=== PATIENT | female | born 1970 | race African-American/Black ===

== ENCOUNTER 2019-06-10 16:29 | Emergency (ER) | payer OTHER ==
--- OUTSIDE RECORDS SUMMARY | 2019-06-10 16:32 | XMS REPORT ---
:1970 [facility] Address [address] [place] [id number] Care Team Providers Name Role Phone Unavailable Unavailable Unavailable Problems This patient has no known problems. Allergies, Adverse Reactions, Alerts This patient has no known allergies or adverse reactions. Medications This patient has no known medications.
[2019-06-10 17:55] LABS: Absolute Lymphocytes (CBC) 2.4 K/uL (0.7-4.9); Basophils % 0.7 % (0-1.3); Hematocrit 36.5 % (36.0-45.0); Lymphocytes % 27.9 % (15.3-44.8)
[2019-06-10 18:00] LABS: Protime INR 1.05
--- NOTE | 2019-06-10 18:14 | RAD REPORT ---
EXAM DESCRIPTION: RAD - Chest Single View - 06/10/2019 5:24 pm CLINICAL HISTORY: Hypertension, shortness of breath COMPARISON: August 2008 TECHNIQUE: AP portable chest image was obtained 1719 hours . FINDINGS: Lungs are clear. Heart and vasculature are normal. No measurable pleural effusion and no p neumothorax. No acute bony abnormality seen. No acute aortic findings suspected. IMPRESSION: No acute cardiopulmonary process. No suspicious interval change.
[2019-06-10 18:25] LABS: ALT/SGPT 18 U/L (12-78); AST/SGOT 12 U/L (15-37); Alkaline Phosphatase 63 U/L (45-117); BUN Blood Urea Nitrogen 14 mg/dL (7-18); Bicarbonate 28 mmol/L (21-32); Bilirubin Direct 0.1 mg/dL (0-0.2); Bilirubin Total 0.4 mg/dL (0.2-1.0); Glucose Level 369 mg/dL (74-106); Magnesium 1.7 mg/dL (1.8-2.4); NT PRO-BNP 328 pg/mL (<125); Protein, Total 6.4 g/dL (6.4-8.2); Sodium Level 137 mmol/L (136-145); Troponin (Emerg Dept Use Only) < 0.02 ng/mL (0.0-0.045)
--- NOTE | 2019-06-10 18:32 | ER ---
Nurse's Notes [facility] Name: Mariaa Peguero Age: 48 yrs Sex: Female : 1970 Arrival Date: 06/10/2019 Time: 16:36 Bed 14 Private MD: Diagnosis: Dehydration;Hyperglycemia, unspecified Presentation: 06/10 16:46 Presenting complaint: Blurred vision x 1 week, sent from Dr. Elizabeth's office for HTN. hb Transition of care: patient was not received from another setting of care. Onset of symptoms was June 10, 2019. Risk Assessment: Do you want to hurt yourself or someone else? Patient reports no desire to harm self or others. Initial Sepsis Screen: Does the patient meet any 2 criteria? No. Patient's initial sepsis screen is negative. Does the patient have a suspected source of infection? No. Patient's initial sepsis screen is negative. Care prior to arrival: None. 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 - Social history:: Smoking status: Patient/guardian denies using tobacco. - Ebola Screening: : No symptoms or risks identified at this time. Screenin:59 Abuse screen: Denies threats or abuse. Denies injuries from another. Nutritional ph screening: No deficits noted. Tuberculosis screening: No symptoms or risk factors identified. Fall Risk None identified. Assessment: 17:30 General: Appears in no apparent distress. comfortable, well groomed, Behavior is calm, ph cooperative, appropriate for age. Pain: Denies pain. Neuro: Level of Consciousness is awake, alert, obeys commands, Oriented to person, place, time, situation, Reports blurred vision Denies dizziness, headache. Cardiovascular: Denies chest pain, lightheadedness, shortness of breath, Capillary refill < 3 seconds in bilateral fingers Patient's skin is warm and dry. Respiratory: Airway is patent Respiratory effort is even, unlabored, Respiratory pattern is regular, symmetrical. Derm: Skin is intact, is healthy with good turgor, Skin is pink, warm \\T\\ dry. Musculoskeletal: Circulation, motion, and sensation intact. Range of motion: intact in all extremities. 18:43 Reassessment: Patient appears in no apparent distress at this time. Patient and/or ph family updated on plan of care and expected duration. Pain level reassessed. Patient is alert, oriented x 3, equal unlabored respirations, skin warm/dry/pink. Pt requesting to be d/c, ERP notified and at bedside to speak w/ pt about elevated BGL, pt continue to state that she wants to leave, states, " I knew it was going to be high, I'm just ready to go.". Vital Signs: 16:48 BP 167 / 95; Pulse 78; Resp 16; Temp 98.5; Pulse Ox 96% on R/A; Weight 102.06 kg; hb Height 5 ft. 3 in. (160.02 cm); Pain 0/10; 17:45 BP 147 / 85; Pulse 81; Resp 18; Pulse Ox 96% on R/A; ph 18:40 BP 135 / 90; Pulse 78; Resp 18; Temp 97.9; Pulse Ox 100% on R/A; ph 16:48 Body Mass Index 39.86 (102.06 kg, 160.02 cm) hb ED Course: 16:36 Patient arrived in ED. mr 16:48 Triage completed. hb 16:48 Arm band placed on left wrist. hb 16:51 [facility]ie Oliva [facility]-C [facility]. snw 16:51 Dani Lira MD is Attending Physician. snw 16:51 Yenni Waldrop, EYAL is Primary Nurse. ph 17:22 EKG done, by endoscope technician. reviewed by Allie VARGAS. sm3 17:26 XRAY Chest (1 view) In Process Unspecified. EDMS 17:35 Inserted saline lock: 20 gauge in right antecubital area, using aseptic technique. ph Blood collected. IV discontinued, intact, bleeding controlled, No redness/swelling at site. Pressure dressing applied, Pt requested that IV be d/c after blood draw. 17:56 Patient has correct armband on for positive identification. Placed in gown. Bed in low ph position. Call light in reach. Pulse ox on. NIBP on. Door closed. Noise minimized. Lights dimmed. Warm blanket given. Head of bed elevated. 18:44 No provider procedures requiring assistance completed. ph Administered Medications: 18:33 Not Given (Patient Refused): NS 0.9% 1000 ml IV at 1 bolus Per protocol; 1000 mL bolus ph 18:41 Drug: Ativan 1 mg Route: PO; ph 18:42 Follow up: Response: No adverse reaction; Medication administered at discharge. ph Outcome: 18:31 Discharge ordered by MD. beavers 18:45 Patient left the ED. ph 18:45 Discharged to home ambulatory, with significant other. ph 18:45 Condition: stable 18:45 Discharge instructions given to patient, Instructed on discharge instructions, follow up and referral plans. Demonstrated understanding of instructions, follow-up care. Signatures: Dispatcher [employer] EDMS Allie Oliva, ARNOLDOC BLADE GRINDER-Csnw Michelle Glass Patricia, RN RN Shayla Swartz RN RN Marilou Crowe [facility]
--- NOTE | 2019-06-10 18:33 | EDPHYS ---
Physician Documentation [facility] Name: Mariaa Peguero Age: 48 yrs Sex: Female : 1970 Arrival Date: 06/10/2019 Time: 16:36 Bed 14 Private MD: ED Physician Dani Lira HPI: 06/10 17:51 This 48 yrs old Black Female presents to ER via Ambulatory with complaints of High snw Blood Pressure. 17:51 The patient has elevated blood pressure and discovered this as noted. Onset: The snw symptoms/episode began/occurred gradually. Associated signs and symptoms: Pertinent positives: fatigue, malaise, hyperglycemia. Severity of symptoms: At its worst the blood pressure was moderate. It is unknown whether or not the patient has had similar symptoms in the past. 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 Dong. 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 - Social history:: Smoking status: Patient/guardian denies using tobacco. - Ebola Screening: : No symptoms or risks identified at this time. ROS: 17:47 Constitutional: Negative for fever, chills, and weight loss, Eyes: Negative for injury, snw pain, redness, and discharge, + blurry vision x 1 week, Went to Dr. Faustin's today and had eyes dilated. Dr. Faustin sent pt to ED 2nd to HTN in office. Pt is supposed to take anti-HTN meds BID, has not been taking a.m. dose x several days, unsure why per pt. Her own meds were taken at 's and blood pressure is better. Pt states her FSBS has been high lately ENT: Negative for injury, pain, and discharge, Neck: Negative for injury, pain, and swelling, Cardiovascular: Negative for chest pain, palpitations, and edema, Respiratory: Negative for shortness of breath, cough, wheezing, and pleuritic chest pain, Abdomen/GI: Negative for abdominal pain, nausea, vomiting, diarrhea, and constipation, Back: Negative for injury and pain, : Negative for injury, bleeding, discharge, and swelling, MS/Extremity: Negative for injury and deformity, Skin: Negative for injury, rash, and discoloration, Neuro: Negative for headache, weakness, numbness, tingling, and seizure, Psych: Negative for depression, anxiety, suicide ideation, homicidal ideation, and hallucinations. Exam: 17:45 Constitutional: This is a well developed, well nourished patient who is awake, alert, snw and in no acute distress. Head/Face: Normocephalic, atraumatic. Eyes: Pupils equal round and reactive to light, extra-ocular motions intact. Lids and lashes normal. Conjunctiva and sclera are non-icteric and not injected. Cornea within normal limits. Periorbital areas with no swelling, redness, or edema. ENT: Nares patent. No nasal discharge, no septal abnormalities noted. Tympanic membranes are normal and external auditory canals are clear. Oropharynx with no redness, swelling, or masses, exudates, or evidence of obstruction, uvula midline. Mucous membranes moist. Neck: Trachea midline, no thyromegaly or masses palpated, and no cervical lymphadenopathy. Supple, full range of motion without nuchal rigidity, or vertebral point tenderness. No Meningismus. Chest/axilla: Normal chest wall appearance and motion. Nontender with no deformity. No lesions are appreciated. Cardiovascular: Normal rate and rhythm with a normal S1 and S2. No gallops, murmurs, or rubs. Normal PMI, no JVD. No pulse deficits. Respiratory: Lungs have equal breath sounds bilaterally, clear to auscultation and percussion. No rales, rhonchi or wheezes noted. No increased work of breathing, no retractions or nasal flaring. Abdomen/GI: Soft, non-tender, with normal bowel sounds. No distension or tympany. No guarding or rebound. No evidence of tenderness throughout. Back: No spinal tenderness. No costovertebral tenderness. Full range of motion. Skin: Warm, dry with normal turgor. Normal color with no rashes, no lesions, and no evidence of cellulitis. Appears mildly dry MS/ Extremity: Pulses equal, no cyanosis. Neurovascular intact. Full, normal range of motion. Neuro: Awake and alert, GCS 15, oriented to person, place, time, and situation. Cranial nerves II-XII grossly intact. Motor strength 5/5 in all extremities. Sensory grossly intact. Cerebellar exam normal. Normal gait. Psych: Awake, alert, with orientation to person, place and time. Behavior, mood, and affect are within normal limits. Vital Signs: 16:48 BP 167 / 95; Pulse 78; Resp 16; Temp 98.5; Pulse Ox 96% on R/A; Weight 102.06 kg; hb Height 5 ft. 3 in. (160.02 cm); Pain 0/10; 17:45 BP 147 / 85; Pulse 81; Resp 18; Pulse Ox 96% on R/A; ph 18:40 BP 135 / 90; Pulse 78; Resp 18; Temp 97.9; Pulse Ox 100% on R/A; ph 16:48 Body Mass Index 39.86 (102.06 kg, 160.02 cm) hb MDM: 16:51 Patient medically screened. snw 18:33 Data reviewed: vital signs, nurses notes. Data interpreted: Pulse oximetry: on room air snw is 96 %. Interpretation: normal. Counseling: I had a detailed discussion with the patient and/or guardian regarding: the historical points, exam findings, and any diagnostic results supporting the discharge/admit diagnosis, the presence of at least one elevated blood pressure reading (>120/80) during this emergency department visit, lab results, the need for outpatient follow up, for definitive care, to return to the emergency department if symptoms worsen or persist or if there are any questions or concerns that arise at home. Refusal of service: The patient/guardian displays adequate decision making capability and despite a detailed discussion of alternatives, benefits, risks, and consequences refuses: IVF. Special discussion: Based on the history and exam findings, there is no indication for further emergent testing or inpatient evaluation. I discussed with the patient/guardian the need to see the primary care provider for further evaluation of the symptoms. 06/10 17:03 Order name: Basic Metabolic Panel; Complete Time: 18:28 snw 06/10 17:03 Order name: CBC with Diff; Complete Time: 18:01 snw 06/10 17:03 Order name: LFT's; Complete Time: 18:28 snw 06/10 17:03 Order name: Magnesium; Complete Time: 18:28 snw 06/10 17:03 Order name: NT PRO-BNP; Complete Time: 18:28 snw 06/10 17:03 Order name: PT-INR; Complete Time: 18:25 snw 06/10 17:03 Order name: Troponin (emerg Dept Use Only); Complete Time: 18:28 snw 06/10 17:03 Order name: XRAY Chest (1 view); Complete Time: 18:25 snw 06/10 17:03 Order name: EKG; Complete Time: 17:04 snw 06/10 17:03 Order name: EKG - Nurse/Tech; Complete Time: 17:36 snw 06/10 17:03 Order name: IV Saline Lock; Complete Time: 17:55 snw 06/10 17:03 Order name: Labs collected and sent; Complete Time: 17:55 snw 06/10 17:03 Order name: O2 Per Protocol; Complete Time: 17:36 snw 06/10 17:03 Order name: O2 Sat Monitoring; Complete Time: 17:36 snw Administered Medications: 18:33 Not Given (Patient Refused): NS 0.9% 1000 ml IV at 1 bolus Per protocol; 1000 mL bolus ph 18:41 Drug: Ativan 1 mg Route: PO; ph 18:42 Follow up: Response: No adverse reaction; Medication administered at discharge. ph Disposition: 21:25 Co-signature as Attending Physician, Dani Lira MD. rn Disposition: 06/10/19 18:31 Discharged to Home. Impression: Dehydration, Hyperglycemia, unspecified. - Condition is Stable. - Discharge Instructions: Blurred Vision, Adult, Dehydration, Adult, Diabetes and Sick Day Management, Hyperglycemia, Hypertension, Blood Glucose Monitoring, Adult, Rehydration, Adult. - Work release form, Medication Reconciliation Form, Thank You Letter, Antibiotic Education, Prescription Opioid Use form. - Follow up: Emergency Department; When: As needed; Reason: Worsening of condition. Follow up: Private Physician; When: 2 - 3 days; Reason: Recheck today's complaints, Continuance of care, Re-evaluation by your physician. Signatures: Dispatcher [employer] EDMS Allie Oliva, COAL PULVERIZING OPERATOR-C COAL PULVERIZING OPERATOR-Csnw Dani Lira MD MD rn Hall, Patricia, RN RN Shayla Lemon RN RN Corrections: (The following items were deleted from the chart) 17:47 17:45 Constitutional: This is a well developed, well nourished patient who is awake, snw alert, and in no acute distress. Head/Face: Normocephalic, atraumatic. Eyes: Pupils equal round and reactive to light, extra-ocular motions intact. Lids and lashes normal. Conjunctiva and sclera are non-icteric and not injected. Cornea within normal limits. Periorbital areas with no swelling, redness, or edema. ENT: Nares patent. No nasal discharge, no septal abnormalities noted. Tympanic membranes are normal and external auditory canals are clear. Oropharynx with no redness, swelling, or masses, exudates, or evidence of obstruction, uvula midline. Mucous membranes moist. Neck: Trachea midline, no thyromegaly or masses palpated, and no cervical lymphadenopathy. Supple, full range of motion without nuchal rigidity, or vertebral point tenderness. No Meningismus. Chest/axilla: Normal chest wall appearance and motion. Nontender with no deformity. No lesions are appreciated. Cardiovascular: Tachycardic rate and rhythm with a normal S1 and S2. No gallops, murmurs, or rubs. Normal PMI, no JVD. No pulse deficits. Respiratory: Lungs have equal breath sounds bilaterally, clear to auscultation and percussion. No rales, rhonchi or wheezes noted. No increased work of breathing, no retractions or nasal flaring. Back: No spinal tenderness. No costovertebral tenderness. Full range of motion. Skin: Warm, dry with normal turgor. Normal color with no rashes, no lesions, and no evidence of cellulitis. MS/ Extremity: Pulses equal, no cyanosis. Neurovascular intact. Full, normal range of motion. Neuro: Awake and alert, GCS 15, oriented to person, place, time, and situation. Cranial nerves II-XII grossly intact. Motor strength 5/5 in all extremities. Sensory grossly intact. Cerebellar exam normal. Normal gait. Psych: Awake, alert, with orientation to person, place and time. Behavior, mood, and affect are within normal limits. snw 17:47 17:45 Abdomen/GI: Inspection: abdomen appears normal, Bowel sounds: normal, Palpation: snw mild abdominal tenderness, in all quadrants, snw 18:45 18:31 06/10/2019 18:31 Discharged to Home. Impression: Dehydration; Hyperglycemia, ph unspecified. Condition is Stable. Forms are Medication Reconciliation Form, Thank You Letter, Antibiotic Education, Prescription Opioid Use. Follow up: Emergency Department; When: As needed; Reason: Worsening of condition. Follow up: Private Physician; When: 2 - 3 days; Reason: Recheck today's complaints, Continuance of care, Re-evaluation by your physician. snw
[2019-06-10] MEDS ORDERED: LORAZEPAM 1 MG TABLET ONE (18:38)
[2019-06-10 19:10] VITALS: TEMP 98.5; O2SAT 96
[2019-06-10 19:12] VITALS: BP 147/85
--- NOTE | 2019-06-11 07:24 | EKG ---
Test Date: 2019-06-10 Test Time: 17:11:03 Card Checker: GARRISON MEASUREMENT RESULTS: Intervals: Rate: 79 SD: 122 QRSD: 68 QT: 408 QTc: 467 Central: P: 53 SD: 122 QRS: -27 T: 112 INTERPRETIVE STATEMENTS: Normal sinus rhythm T wave abnormality, consider lateral ischemia Abnormal ECG Compared to ECG 08/28/2008 05:44:35 T-wave abnormality now present Possible ischemia now present Sinus tachycardia no longer present Electronically Signed On 06-11-19 07:23:33 RAILROAD BRAKE REPAIRER by Garret Parish
== END 2019-06-10 18:45 | disposition home or self-care (01) ==
LOC: ER 16:29
DX: I10 Essential (primary) hypertension (principal); E86.0 Dehydration; R73.9 Hyperglycemia, unspecified; Z88.0 Allergy status to penicillin
CPT/HCPCS: 36415; 71045; 80048; 80076; 83735; 83880; 84484; 85025; 85610; 93005; 99284

== ENCOUNTER 2021-06-25 07:58 | Inpatient (IN) | payer OTHER ==
--- OUTSIDE RECORDS SUMMARY | 2021-06-25 08:00 | XMS REPORT | Continuity of Care Document ---
:1970 Author Organization [facility] t Address [address] [place] [address] Care Team Providers Name Role Phone Elaine Attending Clinician Unavailable Heladio_Carter Admitting Clinician Unavailable Payers Payer Name Policy Type Policy Number Effective Date Expiration Date Patrick eng [employer] - CHOICE [id number] 2000 00:00:00 (POS II) Problems Condition Condition Condition Status Onset Resolution Last Treating Co mments Source Name Details Category Date Date Treatment Clinician Date Chronic Chronic Problem Active [facility] kidney Kidney 03-16 Family disease Disease 00:00: Practic stage 3 Stage 3 00 e Dyspnea on Dyspnea on Problem Active [facility] exertion Exertion 03-16 Family 00:00: Practic 00 e Proteinuri Proteinuri Problem Active [facility] a a 03-16 Family 00:00: Practic 00 e Foot Foot Problem Active [facility] callus Callus 01-17 Family 00:00: Practic 00 e Tinea Tinea Problem Active [facility] pedis Pedis 01-17 Family 00:00: Practic 00 e Long-term Long-term Problem Active Alec lewis current Current 01-17 Family use of Use of 00:00: Practic insulin Insulin 00 e Type 2 Type 2 Problem Active [facility] diabetes Diabetes 01-17 Family mellitus Mellitus 00:00: Practi c 00 e Morbid Morbid Problem Active [facility] obesity Obesity 01-17 Family 00:00: Practic 00 e Macular Macular Problem Active [facility] edema and Edema and 04-04 Fami ly retinopath Retinopath 00:00: Pr actic y due to y Due to 00 e type 2 Type 2 diabetes Diabetes mellitus Mellitus Hyperlipid Hyperlipid Problem Active [facility] emia emia 04-04 Family 00:00: Practic 00 e Essential Essential Problem Active Alec lewis hypertensi Hypertensi 9-13 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 rative rative 00:00: Practic retinopath Retinopath 00 e y due to y Due to type 2 Type 2 diabetes Diabetes mellitus Mellitus Hypertensi Hypertensi Problem Active [facility] ve ve 6-13 Family disorder Disorder 00:00: Practi c 00 e General General Problem Active [facility] finding of Finding of 6-13 [facility] observatio Observatio 00:00: Pr actic n of n of 00 e patient Patient Allergies, Adverse Reactions, Alerts Allergy Allergy Status Severity Reaction(s) Onset Inactive Treating Comm ents Source Name Type Date Date Clinician PENICILL Allergy Active Fatal Anaphylaxis [facility] IN G to Family BENETHAM [facility] Practi c INE e e PENICILL Allergy Active Anaphylaxis [facility] IN G to Family BENZATHI [facility] Practi c NE e e Social History Smoking Status Start Date Stop Date Source Never Smoker [facility] Medications Ordered Filled Start Stop Current Ordering Indication Dosage Frequency Signature Comments Components Source Medication Medication Date Date Medication? Clinician (SIG) Name Name albuterol albuterol No albuterol [facility] sulfate HFA sulfate HFA sulfate Family 90 90 HFA 90 Practic mcg/actuati mcg/actuati mcg/actuat e on aerosol on aerosol ion inhaler inhaler aerosol INHALE 1 2 INHALE 1 2 inhaler PUFFS BY PUFFS BY INHALE 1 2 MOUTH FOUR MOUTH FOUR PUFFS BY TIMES A DAY TIMES A DAY MOUTH FOUR TIMES A DAY amlodipine amlodipine No amlodipine [facility] 5 mg tablet 5 mg tablet 5 mg F amily TAKE 1 TAKE 1 tablet Practic TABLET BY TABLET BY TAKE 1 e MOUTH TWICE MOUTH TWICE TABLET BY A DAY A DAY MOUTH TWICE A DAY atorvastati atorvastati No atorvastat [facility] n 20 mg n 20 mg in 20 mg Famil y tablet TAKE tablet TAKE tablet Practic 1 TABLET BY 1 TABLET BY TAKE 1 e MOUTH MOUTH TABLET BY EVERYDAY AT EVERYDAY AT MOUTH BEDTIME BEDTIME EVERYDAY AT BEDTIME azithromyci azithromyci No azithromyc [facility] n 250 mg n 250 mg in [address] [facility] tablet TAKE tablet TAKE tablet Practic 2 TABLETS 2 TABLETS TAKE 2 e BY MOUTH BY MOUTH TABLETS BY TODAY, THEN TODAY, THEN MOUTH TAKE 1 TAKE 1 TODAY, TABLET TABLET THEN TAKE DAILY FOR 4 DAILY FOR 4 1 TABLET DAYS DAYS DAILY FOR 4 DAYS BD BD No BD [facility] Ultra-Fine Ultra-Fine Ultra-Fine Family Mini Pen Mini Pen Mini Pen Pra ctic Needle 31 Needle 31 Needle 31 e gauge x gauge x gauge x 3/16" USE 3 10/05" USE 3 10/05" USE TIMES TIMES 3 TIMES benzonatate benzonatate No benzonatat [facility] 200 mg 200 mg e 200 mg Family capsule capsule capsule Practi c TAKE 1 TAKE 1 TAKE 1 e CAPSULE BY CAPSULE BY CAPSULE BY MOUTH EVERY MOUTH EVERY MOUTH 8 HOURS 8 HOURS EVERY 8 NEEDED NEEDED HOURS NEEDED ciprofloxac ciprofloxac No ciprofloxa [facility] in 500 mg in 500 mg harvinder 500 mg Family tablet TAKE tablet TAKE tablet Practic 1 TABLET BY 1 TABLET BY TAKE 1 e MOUTH TWICE MOUTH TWICE TABLET BY A DAY A DAY MOUTH TWICE A DAY Farxiga 10 Farxiga 10 No 1 Q1D Farxiga 10 [facility] mg tablet mg tablet mg tablet Family Take 1 Take 1 Take 1 Practic tablet tablet tablet e every day every day every day by oral by oral by oral route in route in route in the the the morning. morning. morning. fluconazole fluconazole No fluconazol [facility] 150 mg 150 mg e 150 mg Family tablet TAKE tablet TAKE tablet Practic 1 TABLET BY 1 TABLET BY TAKE 1 e MOUTH NOW MOUTH NOW TABLET BY THEN REPEAT THEN REPEAT MOUTH NOW IN 3 DAYS IN 3 DAYS THEN REPEAT IN 3 DAYS FreeStyle FreeStyle No FreeStyle [facility] Papi 14 Papi 14 Papi 14 Fam livan Day Sensor Day Sensor Day Sensor Practic kit USE kit USE kit USE e DIRECTED DIRECTED DIRECTED DAILY BUT DAILY BUT DAILY BUT CHANGE CHANGE CHANGE EVERY 14 EVERY 14 EVERY 14 DAYS DAYS DAYS furosemide furosemide furosemide [facility] 20 mg 20 mg 20 mg Family tablet TAKE tablet TAKE tablet Practic 1 TABLET BY 1 TABLET BY TAKE 1 e MOUTH EVERY MOUTH EVERY TABLET BY DAY DAY MOUTH EVERY DAY Humulin R Humulin R No Humulin R [facility] U-500 U-500 U-500 Family (Conc) (Conc) (Conc) Practic Insulin Insulin Insulin e Kwikpen 500 Kwikpen 500 Kwikpen unit/mL (3 unit/mL (3 500 mL) mL) unit/mL (3 subcutaneou subcutaneou mL) s inject 40 s inject 40 subcutaneo units units us inject before before 40 units breakfast breakfast before and dinner, and dinner, breakfast increase as increase as and directed; directed; dinner, TDD 150 TDD 150 increase as directed; TDD 150 hydralazine hydralazine No hydralazin [facility] 25 mg 25 mg e 25 mg Family tablet TAKE tablet TAKE tablet Practic 1 TABLET BY 1 TABLET BY TAKE 1 e MOUTH 3 MOUTH 3 TABLET BY TIMES A DAY TIMES A DAY MOUTH 3 WITH FOOD WITH FOOD TIMES A DAY WITH FOOD metoprolol metoprolol No 1 BID metoprolol [facility] tartrate tartrate tartrate Fam livan 100 mg 100 mg 100 mg Practic tablet Take tablet Take tablet e 1 tablet 1 tablet Take 1 twice a day twice a day tablet by oral by oral twice a route. route. day by oral route. metoprolol metoprolol No metoprolol [facility] tartrate 50 tartrate 50 tartrate Family mg tablet mg tablet 50 mg Prac tic TAKE 1.5 TAKE 1.5 tablet e TABLET BY TABLET BY TAKE 1.5 MOUTH TWO MOUTH TWO TABLET BY TIMES A DAY TIMES A DAY MOUTH TWO TIMES A DAY OneTouch OneTouch No 1each TID OneTouch [facility] Delica Delica Delica Family Lancets 30 Lancets 30 Lancets 30 Practic gauge Take gauge Take gauge Take e 1 each 3 1 each 3 1 each 3 times a day times a day times a by miscell. by miscell. day by route. route. miscell. route. OneTouch OneTouch No 1strip( TID OneTouch [facility] Verio test Verio test s) Verio test Family strips Take strips Take strips Practic 1 strip 3 1 strip 3 Take 1 e times a day times a day strip 3 by miscell. by miscell. times a route. route. day by miscell. route. Ozempic Ozempic No .5mg Q1W Ozempic Vill[facility] e 0.25 mg or 0.25 mg or 0.25 mg or Family 0.5 mg (2 0.5 mg (2 0.5 mg (2 Practic mg/1.5 mL) mg/1.5 mL) mg/1.5 mL) e subcutaneou subcutaneou subcutaneo s pen s pen us pen injector injector injector Inject 0.5 Inject 0.5 Inject 0.5 mg every mg every mg every week by week by week by subcutaneou subcutaneou subcutaneo s route. s route. us route. promethazin promethazin No [facility] e 25 mg e 25 mg ne 25 mg Famil y tablet TAKE tablet TAKE tablet Practic 1 TABLET BY 1 TABLET BY TAKE 1 e MOUTH FOUR MOUTH FOUR TABLET BY TIMES A DAY TIMES A DAY MOUTH FOUR NEEDED NEEDED TIMES A FOR NAUSEA/ FOR NAUSEA/ DAY VOMITING VOMITING NEEDED FOR NAUSEA/ VOMITING [facility] e-DM 6.25 ne-DM 6.25 Family mg-15 mg/5 mg-15 mg/5 mg-15 mg/5 Practic mL oral mL oral mL oral e syrup TAKE syrup TAKE syrup TAKE 5 ML BY 5 ML BY 5 ML BY MOUTH MOUTH MOUTH NIGHTLY NIGHTLY NIGHTLY NEEDED NEEDED NEEDED [facility]ip[facility] mg [facility] 10 mg Fa benigno TAKE 1 TAKE 1 capsule Practic CAPSULE BY CAPSULE BY TAKE 1 e MOUTH TWICE MOUTH TWICE CAPSULE BY A DAY A DAY MOUTH TWICE A DAY ramipril 10 ramipril 10 No 1 Q1D ramipril [facility] mg tablet mg tablet 10 mg Fami ly Take 1 Take 1 tablet Practic tablet tablet Take 1 e every day every day tablet by oral by oral every day route. route. by oral route. Trulicity Trulicity No 1.5mg Q1W [facility] 1.5 mg/0.5 1.5 mg/0.5 1.5 mg/0.5 Family mL mL mL Practic subcutaneou subcutaneou subcutaneo e s pen s pen us pen injector injector injector Inject 1.5 Inject 1.5 Inject 1.5 mg every mg every mg every week by week by week by subcutaneou subcutaneou subcutaneo s route as s route as us route directed directed as for 30 for 30 directed days. days. for 30 days. Vital Signs Vital Name Observation Time Observation Value Comments Source BP Diastolic 2021-03-16 00:00:00 88 mm[Hg] [facility] Height 2021-03-16 00:00:00 63 [in_i] [facility] BMI (Body Mass 2021-03-16 00:00:00 41.8 kg/m2 [facility]) Practice BP Systolic 2021-03-16 00:00:00 163 mm[Hg] [facility] Body Weight 2021-03-16 00:00:00 236.2 [lb_av] [facility] Body Weight 2021-01-17 00:00:00 243 [lb_av] [facility] BP Diastolic 2021-01-17 00:00:00 95 mm[Hg] [facility] Height 2021-01-17 00:00:00 63 [in_i] [facility] BMI (Body Mass 2021-01-17 00:00:00 43 kg/m2 [facility]) Practice BP Systolic 2021-01-17 00:00:00 156 mm[Hg] [facility] Procedures This patient has no known procedures. Plan of Care Planned Activity Planned Date Details Comments Source Diagnostic Test 2021-03-16 glucose, fingerstick, Alec Loaiza Pending 00:00:00 blood [code = Practice glucose, fingerstick, blood] Diagnostic Test 2021-03-16 hemoglobin A1C, [facility] Geo powell Pending 00:00:00 fingerstick [code = Practice hemoglobin A1C, fingerstick] Encounters Start End Encounter Admission Attending Care Care Encounter Source Date/Time Date/Time Type Type Clinicians Facility Department ID 2021-03-17 2021-03-17 Outpatient Heladio_T VFP VFP [id number] [address] [place] [address] 07:11:00 07:11:00 [id number] Family Practic e 2021-03-16 2021-03-16 Outpatient Heladio_T VFP VFP [id number] [address] [place] [address] 03:56:00 03:56:00 [id number] Family Practic e 2021-03-16 2021-03-16 Constantino VFP [place] - [id number] [facility] 00:00:00 00:00:00 Jill [facility] Batsheva Schneider - Pracdana del rio MD: [id number] VM_SHANTELLE_Alpesh e [facility], [address], [place] [address] , Ph. 2021-02-05 2021-02-05 Outpatient Andiel_T VFP VFP [id number] [address] [place] [address] 01:36:00 01:36:00 [id number] Family Practic e 2021-02-05 2021-02-05 Outpatient Daniel_T VFP VFP [id number] [address] [place] [address] 01:36:00 01:36:00 [id number] Family Practic e 2021-02-05 2021-02-05 Outpatient Daniel_T VFP VFP [id number] [address] 01:36:00 01:36:00 [id number] Family Practic e 2021-01-20 2021-01-20 Outpatient Daniel_T VFP VFP [id number] [address] [place] [address] 05:38:00 05:38:00 [id number] Family Practic e 2021-01-17 2021-01-17 Outpatient Daniel_T VFP VFP [id number] [address] [place] [address] 03:56:00 03:56:00 [id number] Family Practic e 2021-01-17 2021-01-17 Constantino VFP [place] - [id number] [facility] 00:00:00 00:00:00 [facility] Batsheva Schneider - Practi quang RAYMOND: [id number] VM_SHANTELLE_Alpesh e [facility], [address], [place] [address] , Ph. 2021-01-04 2021-01-04 Outpatient Daniel_T VFP VFP [id number] [address] [place] [address] 05:34:00 05:34:00 [id number] Family Practic e 2020-12-08 2020-12-08 Outpatient Daniel_T VFP VFP [id number] [facility] 12:23:00 12:23:00 [id number] Family Practic e 2020-04-02 2020-04-02 Outpatient daniel_t VFP VFP [id number] [address] 12:23:00 12:23:00 [id number] Family Practic e Results Test Description Test Time Test Comments Results Result Comments Source Glucose [Mass/volume] in Capillary blood 2021-01-17 13:51:00 Test Item Value Reference Range Interpretation Comme nts Blood Glucose: mg/dl (test code = Blood Glucose: mg/dl) 211 [facility] Family [facility]
[2021-06-25 08:57] LABS: Absolute Lymphocytes (CBC) 2.6 K/uL (0.7-4.9); Basophils % 0.8 % (0-1.3); Hematocrit 34.8 % (36.0-45.0); Lymphocytes % 36.2 % (15.3-44.8); MPV 8.5 fL (7.6-11.3); RBC Red Blood Cell Count 4.05 M/uL (3.86-4.86)
[2021-06-25 09:00] LABS: Protime INR 0.94
[2021-06-25 09:15] LABS: ALT/SGPT 21 U/L (12-78); AST/SGOT 21 U/L (15-37); Albumin 1.7 g/dL (3.4-5.0); Alkaline Phosphatase 61 U/L (45-117); BUN Blood Urea Nitrogen 19 mg/dL (7-18); Bicarbonate 24 mmol/L (21-32); Bilirubin Direct < 0.1 mg/dL (0-0.2); Bilirubin Total 0.3 mg/dL (0.2-1.0); Magnesium 1.8 mg/dL (1.8-2.4); NT PRO-BNP 1847 pg/mL (<125); Potassium 3.2 mmol/L (3.5-5.1); Protein, Total 5.7 g/dL (6.4-8.2); Sodium Level 137 mmol/L (136-145); Troponin (Emerg Dept Use Only) < 0.02 ng/mL (0.0-0.045)
[2021-06-25 09:16] LABS: Glucose Level 421 mg/dL (74-106)
--- NOTE | 2021-06-25 09:35 | ER ---
Nurse's Notes [facility] Name: Mariaa Peguero Age: 50 yrs Sex: Female : 1970 Arrival Date: 06/25/2021 Time: 07:59 Bed 18 Private MD: Jamison Dong C Diagnosis: Acute diastolic (congestive) heart failure Presentation: 06/25 08:11 Chief complaint: Patient states: High blood pressure and shortness of breath x months. ss Pt was told to come to ED by Dr. Dong to r/o Heart Failure. Coronavirus screen: Client denies travel out of the [place] in the last 14 days. Ebola Screen: Patient denies exposure to infectious person. Patient denies travel to an Ebola-affected area in the 21 days before illness onset. Initial Sepsis Screen: Does the patient meet any 2 criteria? No. Patient's initial sepsis screen is negative. Does the patient have a suspected source of infection? No. Patient's initial sepsis screen is negative. Risk Assessment: Do you want to hurt yourself or someone else? Patient reports no desire to harm self or others. Onset of symptoms is unknown. 08:11 Method Of Arrival: Ambulatory ss 08:11 Acuity: SARA 3 ss Triage Assessment: 08:49 Respiratory: the patient has mild shortness of breath. jg9 08:55 Respiratory: Onset: The symptoms/episode began/occurred at an unknown time. jg9 OPERATIONS AGENT: 10:22 LMP 06/25/2021 jg9 Historical: - Allergies: 08:13 PENICILLINS; ss - Home Meds: 08:13 hydralazine 50 mg Oral tab 1 tab three times a day [Active]; furosemide 40 mg Oral tab ss 1 tab once daily [Active]; metoprolol tartrate 100 mg Oral tab 1 tab 2 times per day [Active]; amlodipine 5 mg tab 1 tab twice a day [Active]; ramipril 5 mg Oral cap 1 cap once daily [Active]; - PMHx: 08:13 Hypertension; Hypercholesterolemia; Diabetes mellitus; ss - Immunization history:: Client reports having NOT received the Covid vaccine. - Social history:: Smoking status: Patient denies any tobacco usage or history of. Screenin:28 Abuse screen: Denies threats or abuse. Denies injuries from another. Nutritional jg9 screening: No deficits noted. Tuberculosis screening: No symptoms or risk factors identified. Fall Risk None identified. Assessment: 08:26 General: Appears in no apparent distress. Behavior is calm, quiet, Smells of Reports jg9 Denies. Pain: Denies pain. Neuro: No deficits noted. Cardiovascular: No deficits noted. Rhythm is sinus rhythm. GI: No deficits noted. : No deficits noted. EENT: No deficits noted. Derm: No deficits noted. Musculoskeletal: No deficits noted. 08:30 Respiratory: Reports shortness of breath on exertion Airway is patent Breath sounds are jg9 diminished bilaterally. 08:30 Respiratory: Respiratory effort is even, unlabored. jg9 10:59 Reassessment: Patient advised by Dr Dong to take home medication renato, jg9 brought in medication and patient took it. (1.5mg/0.5mL). Vital Signs: 08:11 BP 191 / 103; Pulse 85; Resp 20; Temp 97.8(TE); Pulse Ox 95% on R/A; Weight 104.33 kg; ss Height 5 ft. 3 in. (160.02 cm); Pain 0/10; 08:15 BP 159 / 91; Pulse 81; Resp 22; Pulse Ox 94% on R/A; jg9 09:15 BP 162 / 83; Pulse 75; Resp 21; Pulse Ox 94% on R/A; jg9 09:30 BP 161 / 78; Pulse 75; Resp 23; Pulse Ox 95% ; jg9 09:45 BP 171 / 92; Pulse 75; Resp 21; Pulse Ox 94% on R/A; jg9 10:00 BP 179 / 83; Pulse 75; Resp 23; Pulse Ox 96% on R/A; jg9 10:45 BP 182 / 91; Pulse 78; Resp 22; Pulse Ox 97% on R/A; jg9 11:00 BP 153 / 88; Pulse 78; Resp 20; Pulse Ox 98% on R/A; jg9 12:00 BP 135 / 87; Pulse 74; Resp 20; Pulse Ox 98% on R/A; jg9 12:30 BP 133 / 84; Pulse 73; Resp 20 S; Pulse Ox 95% ; jg9 13:00 BP 136 / 82; Pulse 72; Resp 22 S; Pulse Ox 96% on R/A; jg9 08:11 Body Mass Index 40.74 (104.33 kg, 160.02 cm) ss Eileen Coma Score: 08:15 Eye Response: spontaneous(4). Verbal Response: oriented(5). Motor Response: obeys jg9 commands(6). Total: 15. ED Course: 07:59 Patient arrived in ED. ds1 07:59 Jamison Dong MD is Private Physician. ds1 08:02 Priscila Cunha FNP-C is [facility]. kb 08:02 Dani Lira MD is Attending Physician. kb 08:13 Triage completed. ss 08:13 Arm band placed on right wrist. ss 08:42 Inserted saline lock: 20 gauge in right antecubital area, using aseptic technique. jg9 08:48 physician at bedside. jg9 08:49 Patient has correct armband on for positive identification. jg9 08:50 No apparent distress. Resting quietly. jg9 08:55 XRAY Chest (1 view) In Process Unspecified. EDMS 09:33 Jamison Dong MD is Hospitalizing Provider. kb 10:02 COVID-19 SARS RT PCR (Document "Date of Onset" if Symptomatic) Sent. jg9 10:03 No apparent distress. Resting quietly. Appears restless. jg9 11:59 bgl recheck-328mg/dl. jg9 12:23 No apparent distress. Resting quietly. Awaiting bed assignment. Pt visited by . jg9 12:33 No apparent distress. Resting quietly. Awaiting: transfer to room. jg9 12:33 attempted to call report-awaiting nurse call back. jg9 12:34 No provider procedures requiring assistance completed. jg9 13:10 attempting to call report again. jg9 13:17 Report given to EYAL Jones. jg9 13:31 Awaiting: waiting for tech to take patient to room. jg9 13:32 Patient admitted, IV remains in place. jg9 Administered Medications: 10:00 Drug: Insulin Regular Human 10 units {Co-Signature: [email or web address] (Libby Olson RN).} Route: jg9 Sub-Q; Site: abdomen; 12:24 Follow up: Response: No adverse reaction; Blood sugar is lowered jg9 10:01 Drug: Lasix (furosemide) 40 mg Route: IVP; Site: right antecubital; jg9 12:24 Follow up: Response: No adverse reaction; No change in condition jg9 10:01 Drug: Potassium Chloride 40 mEq Route: PO; jg9 12:24 Follow up: Response: No adverse reaction; No change in condition jg9 10:12 Drug: LanTUS (insulin glargine) 20 units Route: Sub-Q; Site: left lower abdomen; jg9 12:23 Follow up: Response: No adverse reaction; Blood sugar is lowered jg9 Outcome: 09:33 Decision to Hospitalize by Provider. kb 13:18 Condition: stable jg9 13:32 Admitted to Med/surg accompanied by tech, via wheelchair, with chart, Report called to sofiya Jones RN 13:36 Patient left the ED. eb Signatures: Dispatcher [employer] EDMA Priscila Cunha, ARNOLD[employer] WATER PUMP OPERATOR-Tamika Mccray ds1 Apryl Arias RN RN Lisa Martinez Jennifer jg9 Libby Olson RN jh6 Corrections: (The following items were deleted from the chart) 10:43 08:26 Respiratory: No deficits noted. Reports shortness of breath on exertion Airway is jg9 patent Respiratory effort is even, unlabored, Breath sounds are clear bilaterally. jg9
--- NOTE | 2021-06-25 09:35 | EDPHYS ---
Physician Documentation [facility] Name: Mariaa Peguero Age: 50 yrs Sex: Female : 1970 Arrival Date: 06/25/2021 Time: 07:59 Bed 18 Private MD: Jamison Dong C ED Physician Dani Lira HPI: 06/25 08:20 This 50 yrs old Black Female presents to ER via Ambulatory with complaints of High kb Blood Pressure, Breathing Difficulty. 08:20 The patient has shortness of breath at rest, with light activity. Onset: The kb symptoms/episode began/occurred "months". Duration: The symptoms are continuous. The patient's shortness of breath is aggravated by exertion. Associated signs and symptoms: The patient has no apparent associated signs or symptoms. Severity of symptoms: At their worst the symptoms were moderate in the emergency department the symptoms are unchanged. The patient has experienced similar episodes in the past. The patient has been recently seen by a physician:. Pt reports uncontrolled hypertension for years and shortness of breath for months. 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 Reports normal stress test and echo last month. Was having increased shortness of breath this morning, called her PCP and was told to come to the ER. VAMP CREASER: 10:22 LMP 06/25/2021 jg9 Historical: - Allergies: 08:13 PENICILLINS; ss - Home Meds: 08:13 hydralazine 50 mg Oral tab 1 tab three times a day [Active]; furosemide 40 mg Oral tab ss 1 tab once daily [Active]; metoprolol tartrate 100 mg Oral tab 1 tab 2 times per day [Active]; amlodipine 5 mg tab 1 tab twice a day [Active]; ramipril 5 mg Oral cap 1 cap once daily [Active]; - PMHx: 08:13 Hypertension; Hypercholesterolemia; Diabetes mellitus; ss - Immunization history:: Client reports having NOT received the Covid vaccine. - Social history:: Smoking status: Patient denies any tobacco usage or history of. ROS: 08:16 Constitutional: Negative for fever, chills, and weight loss. kb 08:16 Cardiovascular: Positive for edema, Negative for chest pain, orthopnea, palpitations, paroxysmal nocturnal dyspnea. 08:16 Respiratory: Positive for dyspnea on exertion, shortness of breath, Negative for cough, hemoptysis, orthopnea, pleurisy, sputum production, wheezing. 08:16 All other systems are negative. Exam: 08:15 Constitutional: This is a well developed, well nourished patient who is awake, alert, kb and in no acute distress. Head/Face: Normocephalic, atraumatic. ENT: Moist Mucous membranes Cardiovascular: Regular rate and rhythm with a normal S1 and S2. No gallops, murmurs, or rubs. No pulse deficits. Abdomen/GI: Soft, non-tender. No distention Skin: Warm, dry with normal turgor. Normal color. MS/ Extremity: Pulses equal, no cyanosis. Neurovascular intact. Full, normal range of motion. Neuro: Awake and alert, GCS 15, oriented to person, place, time, and situation. Moves all extremities. Normal gait. Psych: Awake, alert, with orientation to person, place and time. Behavior, mood, and affect are within normal limits. 08:15 Cardiovascular: Edema: 2+ edema to level of left foot and right foot. 08:15 Respiratory: mild respiratory distress is noted, Respirations: labored breathing, that is mild, Breath sounds: are clear throughout. Vital Signs: 08:11 BP 191 / 103; Pulse 85; Resp 20; Temp 97.8(TE); Pulse Ox 95% on R/A; Weight 104.33 kg; ss Height 5 ft. 3 in. (160.02 cm); Pain 0/10; 08:15 BP 159 / 91; Pulse 81; Resp 22; Pulse Ox 94% on R/A; jg9 09:15 BP 162 / 83; Pulse 75; Resp 21; Pulse Ox 94% on R/A; jg9 09:30 BP 161 / 78; Pulse 75; Resp 23; Pulse Ox 95% ; jg9 09:45 BP 171 / 92; Pulse 75; Resp 21; Pulse Ox 94% on R/A; jg9 10:00 BP 179 / 83; Pulse 75; Resp 23; Pulse Ox 96% on R/A; jg9 10:45 BP 182 / 91; Pulse 78; Resp 22; Pulse Ox 97% on R/A; jg9 11:00 BP 153 / 88; Pulse 78; Resp 20; Pulse Ox 98% on R/A; jg9 12:00 BP 135 / 87; Pulse 74; Resp 20; Pulse Ox 98% on R/A; jg9 12:30 BP 133 / 84; Pulse 73; Resp 20 S; Pulse Ox 95% ; jg9 13:00 BP 136 / 82; Pulse 72; Resp 22 S; Pulse Ox 96% on R/A; jg9 08:11 Body Mass Index 40.74 (104.33 kg, 160.02 cm) ss Eileen Coma Score: 08:15 Eye Response: spontaneous(4). Verbal Response: oriented(5). Motor Response: obeys jg9 commands(6). Total: 15. MDM: 08:02 Patient medically screened. kb 08:15 Data reviewed: vital signs, nurses notes. Data interpreted: Pulse oximetry: on room air kb is 95 %. Interpretation: normal. 09:32 Counseling: I had a detailed discussion with the patient and/or guardian regarding: the kb historical points, exam findings, and any diagnostic results supporting the discharge/admit diagnosis, lab results, radiology results, the need for further work-up and treatment in the hospital. Physician consultation: A Iker RAYMOND was contacted at 09:33, regarding admission, and will see patient in ED. 09:37 ED course: VO from Dr Dong for lantus 20 units SQ x1 dose, aggressive sliding scale, kb lasix 40mg IV BID, and allow pt to take home trulicity. 06/25 08:08 Order name: Basic Metabolic Panel; Complete Time: 09:29 kb 06/25 08:08 Order name: CBC with Diff; Complete Time: 09:02 kb 06/25 08:08 Order name: LFT's; Complete Time: 09:29 kb 06/25 08:08 Order name: Magnesium; Complete Time: 09:29 kb 06/25 08:08 Order name: NT PRO-BNP; Complete Time: 09:29 kb 06/25 08:08 Order name: PT-INR; Complete Time: 09:02 kb 06/25 08:08 Order name: Troponin (emerg Dept Use Only); Complete Time: 09:29 kb 06/25 08:08 Order name: XRAY Chest (1 view); Complete Time: 10:48 kb 06/25 08:56 Order name: COVID-19 SARS RT PCR (Document "Date of Onset" if Symptomatic); Complete kb Time: 11:40 06/25 11:59 Order name: Glucose, Ancillary Testing EDMS 06/25 08:08 Order name: EKG; Complete Time: 08:09 kb 06/25 08:08 Order name: Cardiac monitoring; Complete Time: 08:42 kb 06/25 08:08 Order name: EKG - Nurse/Tech; Complete Time: 09:36 kb 06/25 08:08 Order name: IV Saline Lock; Complete Time: 08:42 kb 06/25 08:08 Order name: Labs collected and sent; Complete Time: 08:47 kb 06/25 08:08 Order name: O2 Sat Monitoring; Complete Time: 10:43 kb Administered Medications: 10:00 Drug: Insulin Regular Human 10 units {Co-Signature: jh6 (Libby Olson RN).} Route: jg9 Sub-Q; Site: abdomen; 12:24 Follow up: Response: No adverse reaction; Blood sugar is lowered jg9 10:01 Drug: Lasix (furosemide) 40 mg Route: IVP; Site: right antecubital; jg9 12:24 Follow up: Response: No adverse reaction; No change in condition jg9 10:01 Drug: Potassium Chloride 40 mEq Route: PO; jg9 12:24 Follow up: Response: No adverse reaction; No change in condition jg9 10:12 Drug: LanTUS (insulin glargine) 20 units Route: Sub-Q; Site: left lower abdomen; jg9 12:23 Follow up: Response: No adverse reaction; Blood sugar is lowered jg9 Disposition: 18:00 Co-signature as Attending Physician, Dani Lira MD I agree with the assessment and rn plan of care. Attestation: The patient's history, exam findings, diagnostics, and a summary of any interventions or procedures was reviewed in detail with Priscila VARGAS. Disposition Summary: 06/25/21 09:33 Hospitalization Ordered Hospitalization Status: Inpatient Admission kb Provider: Jamison Dong Location: Telemetry/[facility]Sur (Inpatient) kb Condition: Stable kb Problem: new kb Symptoms: are unchanged kb Bed/Room Type: Standard Room Assignment: 406(06/25/21 12:13) eb Diagnosis - Acute diastolic (congestive) heart failure kb Forms: - Medication Reconciliation Form kb - SBAR form kb Signatures: Dispatcher [employer] Priscila Juárez, GRANT OFFICER-C GRANT OFFICER-Dani Monroe MD MD rn Smirch, Shelby, RN RN ss Botello, Elizabeth eb Gilmore, Jennifer jg9 Libby Olson RN jh6 Corrections: (The following items were deleted from the chart) 12:13 09:33 kb nora
[2021-06-25] MEDS ORDERED: POTASSIUM CL SA 10 MEQ TAB PO ONE (09:39)
[2021-06-25] MEDS ORDERED: FUROSEMIDE 40 MG/4 ML VIAL ONE (09:39)
[2021-06-25] MEDS ORDERED: INSULIN -REGULAR HUMAN 50 UNIT/0.5 ML ML ONE (09:46)
[2021-06-25] MEDS ORDERED: INSULIN GLARGINE 100 UNIT/ML SQ ONE ×2 (10:00→10:11)
--- NOTE | 2021-06-25 10:36 | RAD REPORT ---
EXAM DESCRIPTION: Radha Single View06/25/2021 8:55 am CLINICAL HISTORY: Shortness of breath COMPARISON: February 2021 FINDINGS: Bilateral pulmonary opacities. Heart is borderline enlarged. Prominence of mediastinum IMPRESSION: Bilateral pulmonary opacities represent pulmonary edema or pneumonia Prominence of mediastinum probably lymphadenopathy or aortic aneurysm
--- NOTE | 2021-06-25 11:48 | HP ---
Date of Admission: 06/25/2021 Chief Complaint: Shortness of breath. History Of Present Illness: This is a 50-year-old female patient, who has longstanding history of hypertension, diabetes mellitus, has not been compliant with medications for a long time. Recently, she started to take her medications regularly and had outpatient cardiac workup done. Had a normal stress test and echocardiogram within last month to 2 months. Has shown ejection fraction around 70% with concentric left ventricular hypertrophy. Recently, she had some bronchitis type of symptoms about 2-3 weeks ago and says that since that time, she has been having shortness of breath at nighttime, where she feels like she is not able to lie down flat in the bed, and she has to stay upright all throughout the night. As long as she stays upright, her breathing is better. She is also experiencing shortness of breath with activity and has noted increasing leg swelling and some weight gain lately. She contacted me with all this information this morning, and she was advised to come to emergency room and after she was evaluated, she was admitted to the hospital with congestive heart failure problem. Her was with her at bedside and all the details were discussed with both of them. Allergies: PENICILLIN. Review of Systems: Cardiovascular: As mentioned above. All other systems reviewed and negative. Medications: List reviewed. Past Medical History: Significant for: 1. Type 2 diabetes mellitus, uncontrolled. 2. Diabetes mellitus with chronic kidney disease. 3. Hypertension. 4. Obstructive sleep apnea. 5. Hyperlipidemia. 6. Chronic kidney disease, stage 3A. Past Surgical History: Cholecystectomy and and benign hepatic adenoma which was surgically resected, requiring approximately 60% of the liver to be removed in 2008 and surgery for right foot fracture. Social History: Negative for smoking and alcohol use. Family History: Mother with hypertension and diabetes and siblings with diabetes. Physical Examination: Vital Signs: Weight 230 pounds, height 5 feet 3 inches, temperature 97.8, pulse 85, respiratory rate 20, blood pressure 191/103, oxygen saturation 95%. General: Awake, alert, oriented, not in any respiratory distress. HEENT: Head atraumatic, normocephalic. Conjunctivae nonerythematous. Sclerae white. Mouth, no thrush or edema noted. Ears/Nose, no mass, lesion, discharge noted. Neck: Supple. No JVD, lymph nodes, bruit, thyromegaly noted. Lungs: Bilateral good equal air entry. Clear to auscultation. No rhonchi. Presence of rales noted in lower half to lower two-third of both lung doherty. Heart: Normal heart sounds, no murmur or gallop. Abdomen: Soft, bowel sounds normal. No guarding, rigidity, tenderness, mass, hepatosplenomegaly, distention, or bruit noted. Extremities: The patient has bilateral grade 2 pedal edema, and her edema is extending to lower abdominal wall as well. No calf tenderness. Skin: No rash, ulcer, cellulitis. Lymphatics: No lymph node enlargement in neck, supraclavicular, infraclavicular region. Neuro: No focal neurological deficit. Chest: Unremarkable. External Genitalia: Deferred. Rectal: Deferred. Laboratory Data: White count 7.3, hemoglobin 11.4, platelets 363. Sodium 137, potassium 3.2, chloride 103, bicarb 24, BUN 19, creatinine 1.66, eGFR 40, glucose 421. Liver function tests unremarkable. Troponin less than 0.02. ProBNP 1847. INR 0.47. COVID-19 test negative. Chest x-ray shows bilateral pulmonary edema pattern. Impression: 1. Congestive heart failure, chronic, diastolic, with acute exacerbation. 2. Pulmonary edema secondary to above. 3. Hypokalemia. 4. Chronic kidney disease, stage 3B. 5. Diabetes mellitus with chronic kidney disease. 6. Diabetes mellitus, uncontrolled. 7. Anemia, due to chronic kidney disease. 8. Hypertension. 9. Hyperlipidemia. 10. Obstructive sleep apnea. Plan: We will admit the patient to hospital for further evaluation and management of this problem. The patient is appropriate for inpatient and is expected to spend 2 midnights in hospital. We will go ahead and replace potassium per order. Start the patient on Lasix 40 mg IV every 12 hours. Monitor intake, output, daily weight. I did advise the patient to stay on low- salt diet. Lifestyle changes including diet, exercise, and weight loss is strongly recommended, and we did talk about that as well. We will continue home medications per order and once we are able to achieve adequate diuresis, we will be able to discharge her to go home in next 2 to 3 days. Details and plan of treatment discussed with the patient. She takes Trulicity once a week. Her injection is due today. I have advised the patient's to bring her Trulicity from home and to bring it to nurse's attention so that where we can go ahead and let the patient use her Trulicity dose for today. 20 units of Lantus insulin subcutaneous x1 dose was ordered this morning, and we will put her on aggressive sliding scale for diabetes control. Blood pressure medications will be given per order, and we will consider adjustment on medication depending on, as it becomes necessary. JEANETH/WANDA Voice ID: [id number] MTDD
[2021-06-25 13:52] VITALS: BMI 40.7
[2021-06-25] MEDS ORDERED: D50W 25 GM/50 ML SYRINGE IV PRN (13:52)
[2021-06-25] MEDS ORDERED: GLUCAGON 1 MG/VIAL IM PRN (13:52)
[2021-06-25] MEDS: INSULIN -REGULAR HUMAN 50 UNIT/0.5 ML ML SQ SCH ×3 (15:19→21:40)
[2021-06-25] MEDS: FUROSEMIDE 40 MG/4 ML VIAL IV SCH (17:03)
[2021-06-25] MEDS: ENOXAPARIN 40 MG/0.4 ML SQ SCH (17:03)
[2021-06-25] MEDS: HYDRALAZINE HCL 25 MG TABLET PO SCH (21:38)
[2021-06-25] MEDS: METOPROLOL TAR 50 MG TAB PO SCH (21:38)
[2021-06-25] MEDS: AMLODIPINE 5 MG TAB PO SCH (21:38)
[2021-06-25] MEDS: INSULIN GLARGINE 100 UNIT/ML SQ SCH (21:39)
[2021-06-26 06:29] LABS: Magnesium 1.9 mg/dL (1.8-2.4); Potassium 3.1 mmol/L (3.5-5.1)
[2021-06-26 06:30] LABS: Thyroid Stimulating Hormone 4.1 uIU/mL (0.360-3.740)
[2021-06-26] MEDS: INSULIN -REGULAR HUMAN 50 UNIT/0.5 ML ML SQ SCH ×4 (07:30→21:44)
[2021-06-26] MEDS: METOPROLOL TAR 50 MG TAB PO SCH ×2 (08:07→21:46)
[2021-06-26] MEDS: FUROSEMIDE 40 MG/4 ML VIAL IV SCH ×3 (08:07→21:47)
[2021-06-26] MEDS: HYDRALAZINE HCL 25 MG TABLET PO SCH ×3 (08:08→21:46)
[2021-06-26] MEDS: AMLODIPINE 5 MG TAB PO SCH ×2 (08:08→21:47)
[2021-06-26] MEDS ORDERED: METOLAZONE 2.5 MG TABLET PO ONE (10:00)
[2021-06-26] MEDS: ramipriL 5 MG CAP PO SCH (10:51)
[2021-06-26] MEDS ORDERED: POTASSIUM CL SA 10 MEQ TAB PO ONE ×2 (11:00→17:59)
--- NOTE | 2021-06-26 11:35 | PN ---
Date of Progress Note: 06/26/2021 Subjective: The patient was seen this morning for followup. No new complaints, problems reported by patient, lying in bed, not in any distress. Her shortness of breath problem has improved last night . She did not have as much trouble as she did before admission to the hospital. Objective: Vital signs: Reviewed. HEENT: Unremarkable. Lungs: Bilateral good equal entry, presence of rales noted in both lung doherty, unchanged from yeste rday. Heart: Sounds normal. Abdomen: Soft. Bowel sounds normal. No guarding, rigidity, tenderness, or distention. Extremities: Bilateral leg edema remains unchanged from yesterday. Laboratory Data: Sodium 143, potassium 3.1, chloride 109, bicarb 28, BUN 16, creatinine 1.49, glucos e 130. A1c 12.7, triglyceride 262, total cholesterol 317, LDL 209, TSH 4.1. Magnesium 1.9. Impression: 1.Congestive heart failure, chronic, diastolic, with acute exacerbation. 2.Chronic kidney disease, stage 3A. 3.Hypertension, uncontrolled. 4.Type 2 diabetes mellitus, uncontrolled. 5.Diabetes mellitus with chronic kidney disease. 6.Mixed hyperlipidemia. 7.Noncompliance. Plan: The patient's cholesterol is extremely elevated and she is not compliant with medication. She does not take her cholesterol medication, which is atorvastatin prescribed to her. She has been non compliant with her blood pressure and diabetes medication for long time except recently she has shown improved compliance, but has not taken care of herself for very long time. I had a long discussion with her regarding her chronic comorbidities, which is her hypertension, diabetes, high cholesterol, and overweight problem and importance of lifestyle on a regular basis to help improve her future risk of cardiovascular problem explained to her. We will go ahead and increase the dose of he r Lasix from 40 mg 2 times a day to 3 times a day. Start her ramipril 10 mg daily. Monitor intake, output, daily weight. Replace electrolytes per protocol and I will repeat blood work tomorrow. I wi ll see her tomorrow for followup. JEANETH/MODL Voice ID: [id number] Report ID: [id number]
[2021-06-26] MEDS: ENOXAPARIN 40 MG/0.4 ML SQ SCH (16:49)
[2021-06-26] MEDS: INSULIN GLARGINE 100 UNIT/ML SQ SCH (21:45)
[2021-06-26] MEDS: ATORVASTATIN 40 MG TAB PO SCH (21:47)
[2021-06-27 04:23] LABS: Magnesium 1.8 mg/dL (1.8-2.4); Potassium 3.7 mmol/L (3.5-5.1)
[2021-06-27] MEDS ORDERED: METOLAZONE 2.5 MG TABLET PO ONE ×2 (06:50→10:00)
[2021-06-27] MEDS ORDERED: POTASSIUM CL SA 10 MEQ TAB PO ONE (09:00)
[2021-06-27] MEDS ORDERED: MAGNESIUM SULFATE 1 gm IVPB 1 GM/100 ML BAG IV ONE (09:00)
[2021-06-27] MEDS: INSULIN -REGULAR HUMAN 50 UNIT/0.5 ML ML SQ SCH ×5 (09:22→21:00)
[2021-06-27] MEDS: ramipriL 5 MG CAP PO SCH (09:23)
[2021-06-27] MEDS: FUROSEMIDE 40 MG/4 ML VIAL IV SCH ×3 (09:23→22:12)
[2021-06-27] MEDS: AMLODIPINE 5 MG TAB PO SCH ×2 (09:23→22:13)
[2021-06-27] MEDS: HYDRALAZINE HCL 25 MG TABLET PO SCH ×3 (09:23→22:12)
[2021-06-27] MEDS: METOPROLOL TAR 50 MG TAB PO SCH ×2 (09:26→22:12)
--- NOTE | 2021-06-27 11:01 | RAD REPORT ---
EXAM DESCRIPTION: RAD - Chest Pa And Lat (2 Views) - 06/27/2021 10:40 am CLINICAL HISTORY: CHF Chest pain. COMPARISON: Chest Single View dated 06/25/2021; Chest Pa And Lat (2 Views) dated 03/04/2021; Chest Sin gle View dated 06/10/2019; CHEST PA AND LAT 2 VIEW dated 08/27/2008 FINDINGS: There has been moderate improvement in the CHF pattern since the comparative study. Mild b ilateral pulmonary opacities persists with small amount of pleural fluid. The heart is upper limit of normal in size. No displaced fractures. IMPRESSION: Moderate improvement in lung aeration since the comparative study.
[2021-06-27] MEDS: ENOXAPARIN 40 MG/0.4 ML SQ SCH (16:17)
--- NOTE | 2021-06-27 20:21 | PN ---
Date of Progress Note: 06/27/2021 Subjective: The patient was seen this morning for followup. No new complaints or problems reported by her. Denies any shortness of breath problem during last night. Overall feels better. Objective: Vital Signs: Reviewed. HEENT: Examination unremarkable. Lungs: Clear to auscultation except very minimum basal rales noted. Overall much better than what i t was when she first came into hospital. Heart: Sounds normal. Abdomen: Soft, bowel sounds normal. No guarding, rigidity, tenderness, distention. Extremities: B ilateral grade 1 pedal edema. Laboratory Data: Sodium 142, potassium 3.7, chloride 107, bicarb 27, BUN 17, creatinine 1.56, glucos e 274, magnesium 1.8. Impression: 1.Chronic diastolic heart failure, with acute exacerbation. 2.Hypertension. 3.Diabetes mellitus type 2, uncontrolled. 4.Chronic kidney disease, stage IIIB. 5.Hyperlipidemia. Plan: We will go ahead and continue Lasix 40 mg IV every 8 hours. Continue current antihypertensive medication. Continue current diabetes management. Fingerstick blood sugar readings reviewed. We w ill give 1 dose of metolazone 2.5 mg x1 dose today. Repeat blood work tomorrow morning and I will se e her tomorrow. Possible discharge to go home tomorrow. JEANETH/MODL Voice ID: [id number] Report ID: [id number]
[2021-06-27] MEDS: ATORVASTATIN 40 MG TAB PO SCH (22:12)
[2021-06-27] MEDS: INSULIN GLARGINE 100 UNIT/ML SQ SCH (22:14)
[2021-06-28 04:44] LABS: Magnesium 1.8 mg/dL (1.8-2.4); Potassium 3.6 mmol/L (3.5-5.1)
[2021-06-28] MEDS ORDERED: MAGNESIUM SULFATE 1 gm IVPB 1 GM/100 ML BAG IV ONE (06:46)
[2021-06-28] MEDS: INSULIN -REGULAR HUMAN 50 UNIT/0.5 ML ML SQ SCH ×4 (07:30→22:03)
[2021-06-28] MEDS: HYDRALAZINE HCL 25 MG TABLET PO SCH ×3 (08:24→21:59)
[2021-06-28] MEDS: METOPROLOL TAR 50 MG TAB PO SCH ×2 (08:25→21:57)
[2021-06-28] MEDS: AMLODIPINE 5 MG TAB PO SCH ×2 (08:25→21:57)
[2021-06-28] MEDS: ramipriL 5 MG CAP PO SCH (08:26)
[2021-06-28] MEDS: FUROSEMIDE 40 MG/4 ML VIAL IV SCH ×3 (08:27→22:03)
[2021-06-28] MEDS ORDERED: METOLAZONE 2.5 MG TABLET PO ONE (09:00)
[2021-06-28] MEDS ORDERED: POTASSIUM 25 MEQ EFFERV TAB PO ONE (09:00)
[2021-06-28] MEDS: ENOXAPARIN 40 MG/0.4 ML SQ SCH (16:14)
--- NOTE | 2021-06-28 20:33 | PN ---
Date of Progress Note: 06/28/2021 Subjective: The patient was seen this morning for a followup. She does not have any PND or orthopne a. Ambulates well. Denies any new complaints. Objective: Vital Signs: Reviewed. HEENT: Examination unremarkable. Lungs: Clear to auscultation. Heart: Sounds normal. Abdomen: Soft. Bowel sounds normal. No guarding, rigidity, tenderness, distention. Extremities: Bilateral leg edema present, unchanged from yesterday. Laboratory Data: Sodium 141, potassium 3.6, chloride 105, bicarb 30, BUN 20, creatinine 1.79, glucos e 192, magnesium 1.8. Impression: 1.Chronic diastolic congestive heart failure, with acute exacerbation. 2.Hypertension. 3.Chronic kidney disease, stage IIIB. 4.Diabetes mellitus, uncontrolled. 5.Mixed hyperlipidemia. Plan: We will continue current medication. Continue IV Lasix. Give second dose of metolazone 2.5 m g p.o. x1 dose today. Intake, output records reviewed. The patient is diuresing very well and she i s in negative fluid balance for last 3 days. We will repeat blood work tomorrow morning. I will see her tomorrow and possible discharge to go home tomorrow. JEANETH/MODL Voice ID: [id number] Report ID: [id number]
[2021-06-28] MEDS: ATORVASTATIN 40 MG TAB PO SCH (21:57)
[2021-06-28] MEDS: INSULIN GLARGINE 100 UNIT/ML SQ SCH (22:03)
[2021-06-29 04:10] LABS: Magnesium 1.8 mg/dL (1.8-2.4); Potassium 3.6 mmol/L (3.5-5.1)
[2021-06-29] MEDS ORDERED: MAGNESIUM SULFATE 1 gm IVPB 1 GM/100 ML BAG IV ONE (07:00)
[2021-06-29] MEDS: ramipriL 5 MG CAP PO SCH (08:09)
[2021-06-29] MEDS: METOPROLOL TAR 50 MG TAB PO SCH (08:10)
[2021-06-29] MEDS: AMLODIPINE 5 MG TAB PO SCH (08:10)
[2021-06-29] MEDS: HYDRALAZINE HCL 25 MG TABLET PO SCH (08:11)
[2021-06-29] MEDS: FUROSEMIDE 40 MG/4 ML VIAL IV SCH (08:11)
[2021-06-29] MEDS: INSULIN -REGULAR HUMAN 50 UNIT/0.5 ML ML SQ SCH (08:18)
[2021-06-29 08:30] VITALS: BP 148/91
[2021-06-29 08:53] VITALS: TEMP 97.6
[2021-06-29] MEDS ORDERED: POTASSIUM 25 MEQ EFFERV TAB PO ONE (09:00)
[2021-06-29 11:31] VITALS: O2SAT 95
--- NOTE | 2021-06-29 20:05 | DS ---
Date of Discharge: 06/29/2021 Physical Examination: HEENT: Unremarkable. Lungs: Clear to auscultation. Heart: Sounds normal. Abdomen: Soft, bowel sounds normal. No guarding, rigidity, tenderness, or distention. Extremities: Trace leg edema. Laboratory Data: On 06/25/2021, white count 7.3, hemoglobin 11.4, platelets 362. Sodium 137, potassium 3.2, chloride 103, bicarb 24, BUN 19, creatinine 1.66, glucose 421. Troponin less than 0.02. Liver function tests unremarkable. Hemoglobin A1c was 12.7, total cholesterol 317, triglycerides 262, LDL 209, HDL 56, TSH 4.1. Last chemistry today; sodium 140, potassium 3.6, chloride 101, bicarb 32, BUN 24, creatinine 1.75, glucose 214. Hospital Course: A 50-year-old female patient admitted to the hospital with complaints of shortness of breath and high blood pressure. Please see dictated H and P for more information. After the patient was evaluated in the ER, she was admitted to the hospital. She was started on IV Lasix 40 mg IV every 12 hours and subsequently dose was increased to every 8 hours. We also gave her metolazone 1 dose yesterday and 1 dose day before yesterday. She diuresed very well. Intake, output records and daily weight was followed. DVT prophylaxis was given per order. Home medications were continued. We did increase dose of ramipril. Overall, her condition has improved significantly. Repeat chest x- ray showed significant improvement. Clinically, there is no evidence of any fluid buildup in her lungs and her paroxysmal nocturnal dyspnea and orthopnea symptoms have resolved completely. I did talk to her in detail and explained her importance of lifestyle changes including diet control to eliminate as much salt and sugar as possible. Exercise, weight loss, and importance of controlling blood pressure, cholesterol and diabetes to reduce long-term complications and cardiovascular risk explained to her. I have known this patient for almost last 27 years and unfortunately she has been very noncompliant. Final Diagnoses: 1. Congestive heart failure, chronic, diastolic, with acute exacerbation. 2. Pulmonary edema secondary to above, resolved. 3. Hypokalemia. 4. Chronic kidney disease, stage 3B. 5. Diabetes mellitus with chronic kidney disease. 6. Diabetes mellitus, uncontrolled. 7. Mixed hyperlipidemia. 8. Anemia due to chronic kidney disease. 9. Hypertension. 10. Obstructive sleep apnea. 11. Hypertensive heart disease. Discharge Medications/ Instructions: Continue all prior home medication except following changes and prescription was sent to her pharmacy from my office. 1. Ramipril 10 mg 1 capsule by mouth daily. 2. Furosemide 40 mg, the patient to take 2 tablets by mouth 2 times a day. 3. Metolazone 2.5 mg take 1 tablet by mouth once a week. Follow up at my office next week on 07/05/2021 at 9 a.m. JEANETH/WANDA Voice ID: [id number] Report ID: [id number] ANA
== END 2021-06-29 09:30 | disposition home or self-care (01) | DRG 291 ==
LOC: ER 07:58 → ERHOLD 09:47 → 4TH 13:22
PROVIDERS: ADMIT Internal Medicine; ATTEND Internal Medicine
DX: I13.0 Hypertensive heart and chronic kidney disease with heart failure and stage 1 through stage 4 chronic kidney disease, or unspecified chronic kidney disease (principal); I50.33 Acute on chronic diastolic (congestive) heart failure; N18.32 Chronic kidney disease, stage 3b; E11.22 Type 2 diabetes mellitus with diabetic chronic kidney disease; D63.1 Anemia in chronic kidney disease; E87.6 Hypokalemia; E78.2 Mixed hyperlipidemia; G47.33 Obstructive sleep apnea (adult) (pediatric); Z88.0 Allergy status to penicillin; Z91.14 Patient's other noncompliance with medication regimen; Z90.49 Acquired absence of other specified parts of digestive tract; Z79.899 Other long term (current) drug therapy; Z20.822 Contact with and (suspected) exposure to COVID-19
CPT/HCPCS: 36415; 71045; 71046; 80048; 80061; 80076; 82947; 83036; 83735; 83880; 84132; 84439; 84443; 84484; 85025; 85610; 93005; 96372; 96374; 99285; J1650; J1940; J3475; U0003

== ENCOUNTER 2021-09-21 06:35 | Day surgery (SDC) | payer OTHER ==
[2021-09-21 06:51] LABS: Specific Gravity >= 1.030 (1.005-1.030)
[2021-09-21] MEDS ORDERED: EPINEPHRINE/PF 1 MG/ML AMP ONE (06:52)
[2021-09-21] MEDS: NA CHLORIDE 0.9% 1,000 ML ONE ×2 (07:00→07:35)
[2021-09-21] MEDS ORDERED: LIDOCAINE 1% MPF 5 ML VIAL ONE (07:48)
[2021-09-21] MEDS ORDERED: propofoL 200 MG/20 ML VIAL IV ONE ×2 (07:48)
--- NOTE | 2021-09-21 08:12 | ENDO RPT ---
[address], [address] COLONOSCOPY PROCEDURE REPORT EXAM DATE: 09/21/2021 PATIENT NAME: Mariaa Peguero MR #: [id number] BIRTHDATE: 1970 ATTENDING: Lalo Barahona Dr STATUS: outpatient INCLUSION INTERNSHIP: Yenni Dillon and Leticia Rushing RN INDICATIONS: The patient is a 51 yr old Female here for a colonoscopy due to colon cancer screening PROCEDURE PERFORMED: Screening Colonoscopy MEDICATIONS: Per Anesthesia. ESTIMATED BLOOD LOSS: None CONSENT: The patient understands the risks and benefits of the procedure and understands that these risks include, but are not limited to: sedation, allergic reaction, infection, perforation and/or bleeding. Alternative means of evaluation and treatment include, among others: physical exam, x-rays, and/or surgical intervention. The patient elects to proceed with this endoscopic procedure. DESCRIPTION OF PROCEDURE: During intra-op preparation period all mechanical medical equipment was checked for proper function. Hand hygiene and appropriate measures for infection prevention was taken. Procedure, possible complications, alternatives including, but not limited to possibility of bleeding, perforation, tear, infection, sepsis, need for surgery, need for blood transfusion, were explained to the patient. After the risks, benefits and alternatives of the procedure were thoroughly explained, Informed consent was verified, confirmed and timeout was successfully executed by the treatment team. The patient was placed in the left lateral position. A digital rectal exam was performed and revealed a skin tag. After appropriate level of anesthesia, the scope was passed. The EC-[id number] ([id number]) endoscope was introduced through the anus and advanced to the terminal ileum which was intubated for a short distance. The quality of the prep was good. The instrument was then slowly withdrawn as the colon was fully examined. Scope withdrawal time was 7 minutes. COLON FINDINGS: Small internal hemorrhoids were found. Retroflexed views revealed small hemorrhoids. The scope was then completely withdrawn from the patient and the procedure terminated. ADVERSE EVENTS: There were no complications. IMPRESSIONS: 1. Small internal hemorrhoids 2. Intubation to terminal ileum RECOMMENDATIONS: 1. yearly hemoccult starting in 4 years 2. fiber rich diet RECALL: Return in 10 year(s) for Colonoscopy. Lalo Barahona Dr eSigned: Lalo Barahona Dr 09/21/2021 8:12 AM cc: Donta Dong M.D. CPT CODES: ICD9 CODES: PATIENT NAME: Mariaa Peguero MR#: [id number]
--- NOTE | 2021-09-21 08:23 | ENDO RPT ---
[address], [address] COLONOSCOPY PROCEDURE REPORT EXAM DATE: 09/21/2021 PATIENT NAME: Mariaa Peguero MR #: [id number] BIRTHDATE: 1970 ATTENDING: Lalo Barahona Dr STATUS: outpatient RISK MANAGEMENT PROFESSIONAL: Yenni Dillon and Leticia Rushing RN INDICATIONS: The patient is a 51 yr old Female here for a colonoscopy due to colon cancer screening PROCEDURE PERFORMED: Colonoscopy with biopsy - cold polypectomy MEDICATIONS: Per Anesthesia. ESTIMATED BLOOD LOSS: None CONSENT: The patient understands the risks and benefits of the procedure and understands that these risks include, but are not limited to: sedation, allergic reaction, infection, perforation and/or bleeding. Alternative means of evaluation and treatment include, among others: physical exam, x-rays, and/or surgical intervention. The patient elects to proceed with this endoscopic procedure. DESCRIPTION OF PROCEDURE: During intra-op preparation period all mechanical medical equipment was checked for proper function. Hand hygiene and appropriate measures for infection prevention was taken. Procedure, possible complications, alternatives including, but not limited to possibility of bleeding, perforation, tear, infection, sepsis, need for surgery, need for blood transfusion, were explained to the patient. After the risks, benefits and alternatives of the procedure were thoroughly explained, Informed consent was verified, confirmed and timeout was successfully executed by the treatment team. The patient was placed in the left lateral position. A digital rectal exam was performed and revealed a skin tag. After appropriate level of anesthesia, the scope was passed. The [id number] ([id number]) endoscope was introduced through the anus and advanced to the terminal ileum which was intubated for a short distance. The quality of the prep was good. The instrument was then slowly withdrawn as the colon was fully examined. Scope withdrawal time was 7 minutes. COLON FINDINGS: Small internal hemorrhoids were found. A smooth flat polyp measuring 3 mm in size was found in the rectum. A polypectomy was performed with cold forceps. Retroflexed views revealed small hemorrhoids. The scope was then completely withdrawn from the patient and the procedure terminated. ADVERSE EVENTS: There were no complications. IMPRESSIONS: 1. 3 mm flat polyp in the rectum; polypectomy was performed with cold forceps 2. Small internal hemorrhoids 3. Intubation to terminal ileum RECOMMENDATIONS: 1. await biopsy results 2. avoid NSAIDS for 2 weeks 3. fiber rich diet RECALL: Return in 3 year(s) for Colonoscopy. Lalo Barahona Dr eSigned: Lalo Barahona Dr 09/21/2021 8:23 AM Revised: 09/21/2021 8:23 AM cc: Donta Dong M.D. CPT CODES: ICD9 CODES: PATIENT NAME: Mariaa Peguero MR#: [id number]
[2021-09-21 10:00] VITALS: BP 131/69; TEMP 97.6; O2SAT 100
== END 2021-09-21 08:45 | disposition home or self-care (01) ==
LOC: OR 06:35
PROVIDERS: ATTEND Internal Medicine Gastroenterology
PROC: 0DBP8ZX Excision of Rectum, Via Natural or Artificial Opening Endoscopic, Diagnostic (ICD-10-PCS; principal; 2021-09-21 07:30)
DX: Z12.11 Encounter for screening for malignant neoplasm of colon (principal); K63.5 Polyp of colon; K64.8 Other hemorrhoids; Z20.822 Contact with and (suspected) exposure to COVID-19
CPT/HCPCS: 88312; 81025; 82947; 88305; 45380; J2704; J7030; J0171

== ENCOUNTER 2021-11-25 15:54 | Emergency (ER) | payer OTHER ==
--- OUTSIDE RECORDS SUMMARY | 2021-11-25 15:57 | XMS REPORT | Continuity of Care Document ---
:1970 Author Organization [facility] t Address [address] [place] [place] [address] Care Team Providers Name Role Phone Pcp, Does Not Have A Primary Care Physician Heladio_Carter Attending Clinician Unavailable BEA Attending Clinician Unavailable Jono Bills MA Attending Clinician Unavailable Elaine Admitting Clinician Unavailable BEA Admitting Clinician Unavailable Payers Payer Name Policy Type Policy Number Effective Date Expiration Date Patrick eng [employer] - CHOICE [id number] 2000 00:00:00 (POS II) Problems Condition Condition Condition Status Onset Resolution Last Treating Co mments Source Name Details Category Date Date Treatment Clinician Date Depressive Depressive Problem Active N PI:108 disorder Disorder 3-10 768168 1 00:00: 00 Chronic Chronic Disease Active 2020-07 NPI:183 diastolic diastolic 2-17 1318 781 heart heart 00:00: failure failure 00 Hypoalbumi Hypoalbumi Problem Active 2020-07 N PI:108 nemia nemia 0-10 9881736 00:00: 00 Obstructiv Obstructiv Problem Active 2020-07 N PI:108 e sleep e Sleep 0-10 8658896 apnea Apnea 00:00: syndrome Syndrome 00 Localized Localized Disease Active 2020-07 NPI :183 edema due edema due 0-02 1318 781 to fluid to fluid 00:00: overload overload 00 Body mass Body mass Disease Active 2020-07 NPI :183 index index 0-02 3753038 (BMI) (BMI) 00:00: 45.0-49.9, 45.0-49.9, 00 adult adult Benign Benign Disease Active 2020-07 NPI:183 hypertensi hypertensi 0-09 04 41781 on with on with 00:00: chronic chronic 00 kidney kidney disease disease Hyperlipid Hyperlipid Disease Active 2020-07 N PI:183 emia, emia, 0- 0549143 unspecifie unspecifie 00:00: d d 00 Nephrogeno Nephrogeno Disease Active 2020-07 N PI:183 [facility] 0- 0451688 proteinuri proteinuri 00:00: a a 00 Stage 3a Stage 3a Disease Active 2020-07 NPI:1 83 chronic chronic 0- 8936043 kidney kidney 00:00: disease disease 00 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 0- 552992 1 mellitus mellitus 00:00: with with 00 diabetic diabetic polyneurop polyneurop athy athy Hypoalbumi Hypoalbumi Disease Active 2020-07 N PI:183 nemia nemia 0- 9960222 00:00: 00 Chronic Chronic Problem Active NPI:108 kidney Kidney 8 8978916 disease Disease 00:00: stage 3 Stage 3 00 Dyspnea on Dyspnea on Problem Active N PI:108 exertion Exertion 03-16 612181 1 00:00: 00 Proteinuri Proteinuri Problem Active N PI:108 a a 8- 4401950 00:00: 00 Foot Foot Problem Active NPI:108 callus Callus 6 4700384 00:00: 00 Tinea Tinea Problem Active NPI:108 pedis Pedis 01-17 8594563 00:00: 00 Long-term Long-term Problem Active NPI :108 current Current 01-17 0776540 use of Use of 00:00: insulin Insulin 00 Type 2 Type 2 Problem Active NPI:108 diabetes Diabetes 01-17 934968 1 mellitus Mellitus 00:00: 00 Morbid Morbid Problem Active NPI:108 obesity Obesity 6 4570542 00:00: 00 Macular Macular Problem Active NPI:108 edema and Edema and 9-13 3619 191 retinopath Retinopath 00:00: y due to y Due to 00 type 2 Type 2 diabetes Diabetes mellitus Mellitus Hyperlipid Hyperlipid Problem Active N PI:108 emia emia 04-04 4577277 00:00: 00 Essential Essential Problem Active NPI :108 hypertensi Hypertensi 04-04 36 29653 on on 00:00: 00 Clinical Clinical Problem Active NPI:1 08 finding Finding 1 3102177 00:00: 00 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 Formattin g of this note might be different from the original. Last Assessmen t & Plan: Formattin g of this note might be different from the original. Patient has BMI of 47 I encourage d her to lose weight which will also help her symptoms of nausea and gastroeso phageal reflux disease Gastroesop Gastroesop Disease Active Overview : NPI:183 hageal hageal 4-15 Formattin 9837013 reflux reflux 00:00: g of this disease disease 00 note might be different from the original. Formattin g of this note might be different from the original. Last Assessmen t & Plan: Formattin g of this note might be different from the original. Patient has symptoms and prior endoscopi c diagnoses of GERD. I will continue the proton pump inhibitor s and explained some of the diet modificat ion measures to control GERD. 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 131 8781 07:22: 13 dulaglutide Yes inject NPI: 183 (TRULICITY) 1-14 under the 131 8781 0.75 mg/0.5 07:22: skin. mL PnIj 13 furosemide 2020-2021- No 40mg Take 40 mg NPI:183 40 mg 2-18 12-19 by mouth. [id number] tablet 00:00: 05:59 00 :00 ramipriL 10 2020-2021- No 10mg Take 10 mg NPI:183 mg capsule 2-17 12-18 by mouth. 131 8781 00:00: 05:59 00 :00 hydrALAZINE 0 Yes 50mg Take 50 mg NPI:183 50 mg 9-13 by mouth. 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 tablet 00 albuterol albuterol No albuterol NPI:108 sulfate HFA sulfate HFA sulfate 7464137 90 90 HFA 90 mcg/actuati mcg/actuati mcg/actuat on aerosol on aerosol ion inhaler inhaler aerosol INHALE BY INHALE BY inhaler MOUTH 2 MOUTH 2 INHALE BY PUFFS BY PUFFS BY MOUTH 2 MOUTH FOUR MOUTH FOUR PUFFS BY TIMES A DAY TIMES A DAY MOUTH FOUR NEEDED NEEDED TIMES A FOR FOR DAY SHORTNESS SHORTNESS NEEDED FOR OF BREATH OF BREATH SHORTNESS OF BREATH amlodipine amlodipine No amlodipine NPI:108 5 mg tablet 5 mg tablet 5 mg 3 969711 TAKE 1 TAKE 1 tablet TABLET BY TABLET BY TAKE 1 MOUTH TWICE MOUTH TWICE TABLET BY A DAY A DAY MOUTH TWICE A DAY atorvastati atorvastati No atorvastat NPI:108 n 20 mg n 20 mg in 20 mg 82774 91 tablet TAKE tablet TAKE tablet 1 TABLET BY 1 TABLET BY TAKE 1 MOUTH MOUTH TABLET BY EVERYDAY AT EVERYDAY AT MOUTH BEDTIME BEDTIME EVERYDAY AT BEDTIME azithromyci azithromyci No azithromyc NPI:108 n 250 mg n 250 mg in 250 mg 36 87104 tablet TAKE tablet TAKE tablet 2 TABLETS 2 TABLETS TAKE 2 BY MOUTH BY MOUTH TABLETS BY TODAY, THEN TODAY, THEN MOUTH TAKE 1 TAKE 1 TODAY, TABLET TABLET THEN TAKE DAILY FOR 4 DAILY FOR 4 1 TABLET DAYS DAYS DAILY FOR 4 DAYS BD BD No BD NPI:108 Ultra-Fine Ultra-Fine Ultra-Fine [id number] Mini Pen Mini Pen Mini Pen Needle 31 Needle 31 Needle 31 gauge x gauge x gauge x 3/16" USE 3 3/16" USE 3 3/16" USE TIMES TIMES 3 TIMES benzonatate benzonatate No benzonatat NPI:108 100 mg 100 mg e 100 mg 3759915 capsule capsule capsule TAKE 1 TAKE 1 TAKE 1 CAPSULE BY CAPSULE BY CAPSULE BY MOUTH FOUR MOUTH FOUR MOUTH FOUR TIMES A DAY TIMES A DAY TIMES A NEEDED NEEDED DAY FOR COUGH FOR COUGH NEEDED FOR COUGH benzonatate benzonatate No benzonatat NPI:108 200 mg 200 mg e 200 mg 2958134 capsule capsule capsule TAKE 1 TAKE 1 TAKE 1 CAPSULE BY CAPSULE BY CAPSULE BY MOUTH EVERY MOUTH EVERY MOUTH 8 HOURS 8 HOURS EVERY 8 NEEDED NEEDED HOURS NEEDED bupropion bupropion No 1 Q1D bupropion NPI:108 HCl XL 150 HCl XL 150 HCl XL 851 5519990 mg 24 hr mg 24 hr mg 24 hr tablet, tablet, tablet, extended extended extended release release release Take 1 Take 1 Take 1 tablet tablet tablet every day every day every day by oral by oral by oral route for route for route for 30 days. 30 days. 30 days. cefuroxime cefuroxime No cefuroxime NPI:108 axetil 250 axetil 250 axetil 196 9160448 mg tablet mg tablet mg tablet TAKE 1 TAKE 1 TAKE 1 TABLET BY TABLET BY TABLET BY MOUTH TWICE MOUTH TWICE MOUTH A DAY A DAY TWICE A DAY ciprofloxac ciprofloxac No ciprofloxa NPI:108 in 500 mg in 500 mg harvinder 500 mg 8175828 tablet TAKE tablet TAKE tablet 1 TABLET BY 1 TABLET BY TAKE 1 MOUTH TWICE MOUTH TWICE TABLET BY A DAY A DAY MOUTH TWICE A DAY Farxiga 10 Farxiga 10 No Farxiga 10 NPI:108 mg tablet mg tablet mg tablet 1919420 TAKE 1 TAKE 1 TAKE 1 TABLET BY TABLET BY TABLET BY MOUTH EVERY MOUTH EVERY MOUTH DAY IN THE DAY IN THE EVERY DAY MORNING MORNING IN THE MORNING fluconazole fluconazole No fluconazol NPI:108 150 mg 150 mg e 150 mg 8425868 tablet TAKE tablet TAKE tablet 1 TABLET BY 1 TABLET BY TAKE 1 MOUTH NOW MOUTH NOW TABLET BY THEN REPEAT THEN REPEAT MOUTH NOW IN 3 DAYS IN 3 DAYS THEN REPEAT IN 3 DAYS FreeStyle FreeStyle No FreeStyle NPI:108 Papi 14 Papi 14 Papi 14 [phone] Day Sensor Day Sensor Day Sensor kit USE kit USE kit USE DIRECTED DIRECTED DIRECTED DAILY BUT DAILY BUT DAILY BUT CHANGE CHANGE CHANGE EVERY 14 EVERY 14 EVERY 14 DAYS DAYS DAYS furosemide furosemide No furosemide NPI:108 20 mg 20 mg 20 mg 5752476 tablet TAKE tablet TAKE tablet 1 TABLET BY 1 TABLET BY TAKE 1 MOUTH EVERY MOUTH EVERY TABLET BY DAY DAY MOUTH EVERY DAY furosemide furosemide No furosemide NPI:108 40 mg 40 mg 40 mg 6462116 tablet TAKE tablet TAKE tablet 2 TABLETS 2 TABLETS TAKE 2 BY MOUTH BY MOUTH TABLETS BY TWICE A DAY TWICE A DAY MOUTH TWICE A DAY Humulin R Humulin R No Humulin R NPI:108 U-500 U-500 U-981 [id number] (Conc) (Conc) (Conc) Insulin Insulin Insulin Kwikpen 500 Kwikpen 500 Kwikpen unit/mL (3 unit/mL (3 500 mL) mL) unit/mL (3 subcutaneou subcutaneou mL) s inject 40 s inject 40 subcutaneo units units us inject before before 40 units breakfast breakfast before and dinner, and dinner, breakfast increase as increase as and directed; directed; dinner, TDD 200 TDD 200 increase as directed; TDD 200 hydralazine hydralazine No hydralazin NPI:108 25 mg 25 mg e 25 mg 7361630 tablet TAKE tablet TAKE tablet 1 TABLET BY 1 TABLET BY TAKE 1 MOUTH 3 MOUTH 3 TABLET BY TIMES A DAY TIMES A DAY MOUTH 3 WITH FOOD WITH FOOD TIMES A DAY WITH FOOD hydralazine hydralazine No hydralazin NPI:108 50 mg 50 mg e 50 mg 1708882 tablet TAKE tablet TAKE tablet 1 & 1/2 1 & 1/2 TAKE 1 & TABLET BY TABLET BY 1/2 TABLET MOUTH THREE MOUTH THREE BY MOUTH TIMES A DAY TIMES A DAY THREE TIMES A DAY metoclopram metoclopram No metoclopra NPI:108 juan antonio 10 mg juan antonio 10 mg mide 10 mg 5399192 tablet TAKE tablet TAKE tablet 3 TABLETS 3 TABLETS TAKE 3 BY MOUTH BY MOUTH TABLETS BY DIRECTED DIRECTED MOUTH USE USE DIRECTED DIRECTED DIRECTED USE PER YOUR PER YOUR DIRECTED COLONOSCOPY COLONOSCOPY PER YOUR PREP PACKET PREP PACKET COLONOSCOP Y PREP PACKET metoprolol metoprolol No metoprolol NPI:108 tartrate tartrate tartrate 361 9191 100 mg 100 mg 100 mg tablet TAKE tablet TAKE tablet 1 TABLET BY 1 TABLET BY TAKE 1 MOUTH TWICE MOUTH TWICE TABLET BY A DAY A DAY MOUTH TWICE A DAY metoprolol metoprolol No metoprolol NPI:108 tartrate 50 tartrate 50 tartrate 5177159 mg tablet mg tablet 50 mg TAKE 1.5 TAKE 1.5 tablet TABLET BY TABLET BY TAKE 1.5 MOUTH TWO MOUTH TWO TABLET BY TIMES A DAY TIMES A DAY MOUTH TWO TIMES A DAY OneTouch OneTouch No 1each TID OneTouch 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 by miscell. day by route. route. miscell. route. OneTouch OneTouch No 1strip( TID OneTouch NPI:108 Verio test Verio test s) Verio test 4460844 strips Take strips Take strips 1 strip 3 1 strip 3 Take 1 times a day times a day strip 3 by miscell. by miscell. times a route. route. day by miscell. route. Ozempic Ozempic No .5mg Q1W Ozempic NPI:10 8 0.25 mg or 0.25 mg or 0.25 mg or 9995505 0.5 mg (2 0.5 mg (2 0.5 mg (2 mg/1.5 mL) mg/1.5 mL) mg/1.5 mL) subcutaneou subcutaneou subcutaneo s pen s pen us pen injector injector injector Inject 0.5 Inject 0.5 Inject 0.5 mg every mg every mg every week by week by week by subcutaneou subcutaneou subcutaneo s route. s route. us route. promethazin promethazin No promethazi NPI:108 e 25 mg e 25 mg ne 25 mg 46269 91 tablet TAKE tablet TAKE tablet 1 TABLET BY 1 TABLET BY TAKE 1 MOUTH FOUR MOUTH FOUR TABLET BY TIMES A DAY TIMES A DAY MOUTH FOUR NEEDED NEEDED TIMES A FOR NAUSEA/ FOR NAUSEA/ DAY VOMITING VOMITING NEEDED FOR NAUSEA/ VOMITING promethazin promethazin No promethazi NPI:108 e-DM 6.25 e-DM 6.25 ne-DM 6.25 6607485 mg-15 mg/5 mg-15 mg/5 mg-15 mg/5 mL oral mL oral mL oral syrup TAKE syrup TAKE syrup TAKE 5 ML BY 5 ML BY 5 ML BY MOUTH MOUTH MOUTH NIGHTLY NIGHTLY NIGHTLY NEEDED NEEDED NEEDED ramipril 10 ramipril 10 No ramipril NPI:108 mg capsule mg capsule 10 mg 36 57598 TAKE 1 TAKE 1 capsule CAPSULE BY CAPSULE BY TAKE 1 MOUTH TWICE MOUTH TWICE CAPSULE BY A DAY A DAY MOUTH TWICE A DAY ramipril 5 ramipril 5 No ramipril 5 NPI:108 mg capsule mg capsule mg capsule 9009771 TAKE 1 TAKE 1 TAKE 1 CAPSULE (5 CAPSULE (5 CAPSULE (5 MG TOTAL) MG TOTAL) MG TOTAL) BY MOUTH 1 BY MOUTH 1 BY MOUTH 1 (ONE) TIME (ONE) TIME (ONE) TIME EACH DAY EACH DAY EACH DAY Sutab Sutab No Sutab NPI:108 1.479-0.188 1.479-0.188 1.479-0.18 1915817 -0.225 gram -0.225 gram 8-0.225 tablet tablet gram PLEASE SEE PLEASE SEE tablet ATTACHED ATTACHED PLEASE SEE FOR FOR ATTACHED DETAILED DETAILED FOR DIRECTIONS DIRECTIONS DETAILED DIRECTIONS Trulicity Trulicity No 1.5mg Q1W Trulicity NPI:108 1.5 mg/0.5 1.5 mg/0.5 1.5 mg/0.5 5928104 mL mL mL subcutaneou subcutaneou subcutaneo s pen s pen [...] Time Observation Value Comments Source BP Diastolic 2021-09-29 00:00:00 97 mm[Hg] NPI:1083 452245 Height 2021-09-29 00:00:00 63 [in_i] NPI:1083 937433 BMI (Body Mass Index) 2021-09-29 00:00:00 41.6 kg/m2 BP Systolic 2021-09-29 00:00:00 159 mm[Hg] NPI:1083 324954 Body Weight 2021-09-29 00:00:00 235 [lb_av] NPI:1083 258102 BP Diastolic 2021-03-16 00:00:00 88 mm[Hg] NPI:1083 516074 Height 2021-03-16 00:00:00 63 [in_i] NPI:1083 028510 BMI (Body Mass Index) 2021-03-16 00:00:00 41.8 kg/m2 BP Systolic 2021-03-16 00:00:00 163 mm[Hg] NPI:1083 377761 Body Weight 2021-03-16 00:00:00 236.2 [lb_av] NPI:150 4121456 BP Diastolic 2021-01-17 00:00:00 95 mm[Hg] NPI:1083 707812 Height 2021-01-17 00:00:00 63 [in_i] NPI:1083 043921 BMI (Body Mass Index) 2021-01-17 00:00:00 43 kg/m2 BP Systolic 2021-01-17 00:00:00 156 mm[Hg] NPI:1083 767119 Body Weight 2021-01-17 00:00:00 243 [lb_av] NPI:1083 709268 Procedures This patient has no known procedures. Plan of Care Planned Activity Planned Date Details Comments Source Diagnostic Test 2021-09-29 glucose, fingerstick, NPI :[id number] Pending 00:00:00 blood [code = glucose, fingerstick, blood] Diagnostic Test 2021-09-29 hemoglobin A1C, NPI:[id number] Pending 00:00:00 fingerstick [code = hemoglobin A1C, fingerstick] Encounters Start End Encounter Admission Attending Care Care Encounter Source Date/Time Date/Time Type Type Clinicians Facility Department ID 2021-10-06 2021-10-06 Outpatient Daniel_T [facility] VFP [id number] 3-20 NPI:108 05:55:00 05:55:00 [id number] 1 2021-10-06 2021-10-06 Outpatient Daniel_T VFP VFP [id number] 3-20 NPI:108 05:55:00 05:55:00 [id number] 1 2021-09-30 2021-09-30 Outpatient Daniel_T VFP VFP [id number] 3-20 NPI:108 01:27:00 01:27:00 [id number] 1 2021-09-29 2021-09-29 Outpatient Daniel_T VFP VFP [id number] 3-20 NPI:108 11:09:00 11:09:00 [id number] 1 2021-09-29 2021-09-29 Constantino VFP [place] - [id number] N PI:108 00:00:00 00:00:00 [facility] [id number] 1 Batsheva Leija - : [address], [address], [place] [address] , Ph. 2021-09-24 2021-09-26 Inpatient ROBBINS, [facility] 064 [id number] [address] [place] 00:00:00 00:00:00 [facility] [address] 2021-09-25 2021-09-25 Outpatient Daniel_T VFP VFP [id number] 3-20 NPI:108 08:26:00 08:26:00 [id number] 1 2021-09-25 2021-09-25 Outpatient Daniel_T VFP VFP [id number] 3-20 NPI:108 08:26:00 08:26:00 [id number] 1 2021-08-05 2021-08-05 Cam Bills [facility] [id number] NPI:183 00:00:00 00:00:00 Only Jodi [facility] [id number] BAYARD [id number] COLON[place] [id number] 2021-04-06 2021-04-06 Outpatient Daniel_T VFP VFP [id number] 3-20 NPI:108 02:39:00 02:39:00 [id number] 1 2021-04-06 2021-04-06 Outpatient Daniel_T VFP VFP [id number] 3-20 NPI:108 02:39:00 02:39:00 [id number] 1 2021-03-17 2021-03-17 Outpatient Daniel_T VFP VFP [id number] 3-20 NPI:108 07:11:00 07:11:00 [id number] 1 2021-03-16 2021-03-16 Outpatient Daniel_T VFP VFP [id number] 3-20 NPI:108 03:56:00 03:56:00 [id number] 1 2021-03-16 2021-03-16 Constantino VFP [place] - [id number] N PI:108 00:00:00 00:00:00 [facility] [id number] 1 Batsheva Leija - : [address] [address], [address], [place] [address] , Ph. 2021-02-05 2021-02-05 Outpatient Daniel_T VFP VFP [id number] 3-20 NPI:108 01:36:00 01:36:00 [id number] 1 2021-02-05 2021-02-05 Outpatient Daniel_T VFP VFP [id number] 3-20 NPI:108 01:36:00 01:36:00 [id number] 1 2021-02-05 2021-02-05 Outpatient Daniel_T VFP VFP [id number] 3-20 NPI:108 01:36:00 01:36:00 [id number] 1 2021-01-20 2021-01-20 Outpatient Daniel_T VFP VFP [id number] 3-20 NPI:108 05:38:00 05:38:00 [id number] 1 2021-01-17 2021-01-17 Outpatient Daniel_T VFP VFP [id number] 3-20 NPI:108 03:56:00 03:56:00 [id number] 1 2021-01-17 2021-01-17 Constantino VFP [place] - [id number] N PI:108 00:00:00 00:00:00 [facility] [id number] 1 Batsheva Leija - : [address] [address], [address], [place] [address] , Ph. 2021-01-04 2021-01-04 Outpatient Daniel_T VFP VFP [id number] 3-20 NPI:108 05:34:00 05:34:00 [id number] 1 2020-12-08 2020-12-08 Outpatient Daniel_T VFP VFP [id number] 3-20 NPI:108 12:23:00 12:23:00 [id number] 1 2020-04-02 2020-04-02 Outpatient daniel_t VFP VFP [id number] 3-20 NPI:108 12:23:00 12:23:00 [id number] 1 Results Test Description Test Time Test Comments Results Result Comments Source Glucose [Mass/volume] in Capillary blood 2021-09-29 10:39:34 Test Item Value Reference Range Interpretation Comme nts Blood Glucose: mg/dl (test code = Blood Glucose: mg/dl) 438 NPI:[id number] A1c measurement device [id number] 10:39:20 Test Item Value Reference Range Interpretation Comments Hemoglobin A1C Fingerstick: (test code 13.3 = Hemoglobin A1C Fingerstick:) NPI:[id number] (COVID-19) RNA [Presence] in Respiratory specimen by SYLVIE with probe [id number] 07:56:28 Test Item Value Reference Range Interpretation Comments SARS coronavirus RNA [Presence] Not detected in Isolate by SYLVIE with probe detection (test code = 29148-4) Whether patient is employed in a Unknown healthcare setting (test code = 11865-0) Whether the patient has symptoms Unknown related to condition of interest (test code = 51713-5) Whether the patient was Unknown hospitalized for condition of interest (test code = 36798-0) Whether the patient was admitted Unknown to intensive care unit (ICU) for condition of interest (test code = 98717-2) Whether patient resides in a Unknown congregate care setting (test code = 12066-5) status (test code = Unknown 68696-1) Date and time of symptom onset Unknown (test code = 22494-8) SARS-CoV-2 (COVID-19) RNA [Presence] in Respiratory specimen by SYLVIE with probe [id number] 07:56:28 Test Item Value Reference Range Interpretation Comments SARS-CoV-2 (COVID-19) RNA Not detected [Presence] in Respiratory specimen by SYLVIE with probe detection (test code = 05553-1) Whether patient is employed in a Unknown healthcare setting (test code = 90574-0) Whether the patient has symptoms Unknown related to condition of interest (test code = 19467-2) Whether the patient was Unknown hospitalized for condition of interest (test code = 93426-6) Whether the patient was admitted Unknown to intensive care unit (ICU) for condition of interest (test code = 30043-6) Whether patient resides in a Unknown congregate care setting (test code = 45258-3) status (test code = Unknown 12481-2) Date and time of symptom onset Unknown (test code = 40538-1) Glucose [Mass/volume] in Capillary [id number] 13:51:00 Test Item Value Reference Range Interpretation Comments Blood Glucose: mg/dl (test code = Blood 211 Glucose: mg/dl)
[2021-11-25 17:15] LABS: Absolute Lymphocytes (CBC) 2.2 K/uL (0.7-4.9); Hematocrit 36.4 % (36.0-45.0); Lymphocytes % 30.7 % (15.3-44.8); MPV 8.9 fL (7.6-11.3); RBC Red Blood Cell Count 4.33 M/uL (3.86-4.86)
[2021-11-25 17:21] LABS: Protime INR 0.99
[2021-11-25] MEDS ORDERED: FUROSEMIDE 40 MG/4 ML VIAL ONE (17:34)
[2021-11-25 17:39] LABS: ALT/SGPT 24 U/L (12-78); AST/SGOT 25 U/L (15-37); Albumin 1.8 g/dL (3.4-5.0); Alkaline Phosphatase 61 U/L (45-117); BUN Blood Urea Nitrogen 22 mg/dL (7-18); Bicarbonate 26 mmol/L (21-32); Bilirubin Total 0.4 mg/dL (0.2-1.0); Glucose Level 388 mg/dL (74-106); Magnesium 1.7 mg/dL (1.8-2.4); NT PRO-BNP 6801 pg/mL (<125); Potassium 3.6 mmol/L (3.5-5.1); Protein, Total 5.8 g/dL (6.4-8.2); Sodium Level 137 mmol/L (136-145); Troponin High Sensitivity 31.2 pg/mL (<58.9)
[2021-11-25 17:44] LABS: Bilirubin Direct < 0.1 mg/dL (0-0.2)
--- NOTE | 2021-11-25 17:57 | RAD REPORT ---
EXAM DESCRIPTION: Radha Single View11/25/2021 5:41 pm CLINICAL HISTORY: Shortness of breath COMPARISON: 2020 FINDINGS: Lung bases are mildly hazy which may indicate small pleural effusions Upper lobes appear clear. Heart is normal size
--- NOTE | 2021-11-25 19:05 | ER ---
Nurse's Notes [facility] Name: Mariaa Peguero Age: 51 yrs Sex: Female : 1970 Arrival Date: 11/25/2021 Time: 15:55 Bed 25 Private MD: Jamison Dong C Diagnosis: Hyperglycemia, unspecified;Unspecified systolic (congestive) heart failure Presentation: 11/25 16:34 Chief complaint: Patient states: diff breathing through the night no matter what iw position she laid in, hx of CHF. Coronavirus screen: At this time, the client does not indicate any symptoms associated with coronavirus-19. Ebola Screen: Patient negative for fever greater than or equal to 101.5 degrees Fahrenheit, and additional compatible Ebola Virus Disease symptoms Patient denies exposure to infectious person. Patient denies travel to an Ebola-affected area in the 21 days before illness onset. No symptoms or risks identified at this time. Initial Sepsis Screen: Does the patient meet any 2 criteria? No. Patient's initial sepsis screen is negative. Does the patient have a suspected source of infection? No. Patient's initial sepsis screen is negative. Risk Assessment: Do you want to hurt yourself or someone else? Patient reports no desire to harm self or others. Onset of symptoms was November 25, 2021. 16:34 Method Of Arrival: Ambulatory iw 16:34 Acuity: SARA 3 iw Triage Assessment: 17:08 General: Appears in no apparent distress. Respiratory: Reports shortness of breath ab2 Onset: The symptoms/episode began/occurred at an unknown time. the patient reports symptoms have resolved. 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 - Social history:: Smoking status: unknown. Screenin:07 Abuse screen: Denies threats or abuse. Denies injuries from another. Nutritional ab2 screening: No deficits noted. Tuberculosis screening: No symptoms or risk factors identified. Fall Risk None identified. Assessment: 17:06 General: Appears in no apparent distress. uncomfortable, Behavior is calm, cooperative, ab2 appropriate for age. Pain: Denies pain. Neuro: Level of Consciousness is awake, alert, obeys commands, Oriented to person, place, time, situation, Appropriate for age Gasoline Pump Installer are equal bilaterally Moves all extremities. Gait is steady, Speech is normal, Facial symmetry appears normal, Intact. Cardiovascular: Reports shortness of breath, Heart tones S1 S2 present Patient's skin is warm and dry. Rhythm is sinus rhythm. Respiratory: Airway is patent Respiratory effort is even, unlabored, Breath sounds with crackles. GI: No deficits noted. No signs and/or symptoms were reported involving the gastrointestinal system. : No deficits noted. No signs and/or symptoms were reported regarding the genitourinary system. Derm: Skin is intact, is healthy with good turgor. 18:55 Reassessment: Patient appears in no apparent distress at this time. No changes from ab2 previously documented assessment. Patient and/or family updated on plan of care and expected duration. Pain level reassessed. Pt ambulated through ED hallways and states she is feeling better. NEETA Membreno aware and plan is to discharge patient to home. Awaiting discharge order. Pt given warm blankets. Pt denies any needs at this time. Vital Signs: 16:35 BP 175 / 95; Pulse 81; Resp 18; Temp 98.5; Pulse Ox 97% on R/A; iw 17:35 BP 170 / 100; Pulse 77; Resp 16; Pulse Ox 97% on R/A; ab2 18:54 BP 195 / 113; Pulse 83; Resp 17; Pulse Ox 96% on R/A; ab2 19:39 BP 191 / 105; Pulse 81; Resp 17; Pulse Ox 100% on R/A; ab2 ED Course: 15:55 Patient arrived in ED. rg4 15:55 Jamison Dong MD is Private Physician. rg4 16:35 Triage completed. iw 16:36 Haseeb Pat NP is PHCP. pm1 16:36 Didier Hdz MD is Attending Physician. pm1 16:36 Harshil Chambers is Primary Nurse. ab2 17:08 Arm band placed on right wrist. ab2 17:08 Patient has correct armband on for positive identification. Bed in low position. Call ab2 light in reach. Side rails up X2. Adult w/ patient. 17:08 No provider procedures requiring assistance completed. Inserted saline lock: 20 gauge ab2 in left antecubital area, using aseptic technique. Blood collected. 17:09 Basic Metabolic Panel Sent. ab2 17:09 CBC with Diff Sent. ab2 17:09 LFT's Sent. ab2 17:09 Magnesium Sent. ab2 17:09 NT PRO-BNP Sent. ab2 17:09 PT-INR Sent. ab2 17:09 Troponin HS Sent. ab2 17:43 XRAY Chest (1 view) In Process Unspecified. EDMS 19:40 IV discontinued, intact, bleeding controlled, No redness/swelling at site. Pressure ab2 dressing applied. Administered Medications: 17:35 Drug: Lasix (furosemide) 40 mg Route: IVP; Site: right antecubital; ab2 19:39 Follow up: Response: No adverse reaction ab2 19:28 Drug: Insulin Regular Human 10 units {Co-Signature: lp1 (Stephy Dutta RN).} Route: Sub-Q; ab2 Site: left upper arm; 19:39 Follow up: Response: No adverse reaction ab2 Outcome: 19:04 Discharge ordered by MD. pm1 19:40 Discharged to home ambulatory, with family. ab2 19:40 Condition: good 19:40 Discharge instructions given to patient, Instructed on discharge instructions, follow up and referral plans. Demonstrated understanding of instructions, follow-up care. 19:40 Patient left the ED. ab2 Signatures: Dispatcher [employer] Tiffany Sharma, RN EYAL iw Haseeb Pat, MANIFEST/ORDER ORGANIZER PRINT ORDERS MANIFEST/ORDER ORGANIZER PRINT ORDERS pm1 Tasneem Méndez4 Harshil Chambers ab2 Stephy Dutta RN lp1 Corrections: (The following items were deleted from the chart) 16:35 16:35 Home Meds: amlodipine 5 mg tab 1 tab twice a day; iw chacorta
--- NOTE | 2021-11-25 19:05 | EDPHYS ---
Physician Documentation [facility] Name: Mariaa Peguero Age: 51 yrs Sex: Female : 1970 Arrival Date: 11/25/2021 Time: 15:55 Bed 25 Private MD: Jamison Dong C ED Physician Didier Hdz HPI: 11/25 16:45 This 51 yrs old Black Female presents to ER via Ambulatory with complaints of Breathing pm1 Difficulty. 16:45 The patient has shortness of breath with lying down. Onset: The symptoms/episode pm1 began/occurred last night. The patient's shortness of breath is aggravated by supine position. Associated signs and symptoms: Pertinent negatives: chest pain, non-productive cough, productive cough, fever, pedal edema. Severity of symptoms: in the emergency department the symptoms are unchanged Pain is currently a 0 / 10. The patient has been recently seen by a physician: the patient's primary care provider, with similar presenting complaints, medication change: blood pressure medication, that causes leg swelling, possibly calcium channel wero was stopped. FINGERER: 17:08 LMP N/A - Post-menopause ab2 Historical: - Allergies: 16:35 PENICILLINS; iw - PMHx: 16:35 diabetes mellitus; Hypercholesterolemia; Hypertension; iw - Immunization history:: Adult Immunizations unknown. - Social history:: Smoking status: unknown. ROS: 16:45 Constitutional: Negative for fever, chills, and weight loss, Cardiovascular: Negative pm1 for chest pain, palpitations, and edema. 16:45 Abdomen/GI: Negative for abdominal pain, nausea, vomiting, diarrhea, and constipation, Back: Negative for injury and pain, MS/Extremity: Negative for injury and deformity, Skin: Negative for injury, rash, and discoloration, Neuro: Negative for headache, weakness, numbness, tingling, and seizure. 16:45 Respiratory: Positive for shortness of breath, Negative for cough. 16:45 All other systems are negative. Exam: 16:45 Constitutional: This is a well developed, well nourished patient who is awake, alert, pm1 and in no acute distress. Head/Face: Normocephalic, atraumatic. 16:45 Back: No spinal tenderness. No costovertebral tenderness. Full range of motion. Skin: Warm, dry with normal turgor. Normal color with no rashes, no lesions, and no evidence of cellulitis. MS/ Extremity: Pulses equal, no cyanosis. Neurovascular intact. Full, normal range of motion. 16:45 Eyes: Exam is negative for acute changes, Periorbital structures: appear normal, Pupils: no acute changes, Extraocular movements: no acute changes. 16:45 ENT: Exam is negative for acute changes, Mouth: no acute changes, Lips: normal, moist, Oral mucosa: normal, pink and intact, moist. 16:45 Cardiovascular: Exam negative for acute changes, Rate: normal, Rhythm: regular, Pulses: no pulse deficits are appreciated, Heart sounds: normal, normal S1and S2, Edema: is not appreciated. 16:45 Respiratory: the patient does not display signs of respiratory distress, Respirations: normal, Breath sounds: decreased breath sounds, that are mild, are heard in the right posterior lower lobe. 16:45 Abdomen/GI: Exam negative for acute changes, Inspection: abdomen appears normal, Palpation: abdomen is soft and non-tender, in all quadrants. 16:45 Neuro: Exam negative for acute changes, Orientation: is normal, Mentation: is normal, Motor: is normal, moves all fours, Gait: is steady, at a normal pace, without difficulty. Vital Signs: 16:35 BP 175 / 95; Pulse 81; Resp 18; Temp 98.5; Pulse Ox 97% on R/A; iw 17:35 BP 170 / 100; Pulse 77; Resp 16; Pulse Ox 97% on R/A; ab2 18:54 BP 195 / 113; Pulse 83; Resp 17; Pulse Ox 96% on R/A; ab2 19:39 BP 191 / 105; Pulse 81; Resp 17; Pulse Ox 100% on R/A; ab2 MDM: 16:37 Patient medically screened. pm1 18:49 ED course: Discussed admission with the patient. She reports improvement in her pm1 symptoms after Lasix in the ER. Patient reports that she did miss some dosages of Lasix when her calcium channel wero was discontinued. She would like to go home. She was able to walk around the ER without any shortness of breath and difficulty. Discussed return precautions. Patient has [place] appointment with Dr. Acevedo on Sunday. Instructed the patient for compliance with her BID Lasix . 19:03 Data reviewed: vital signs. Data interpreted: Pulse oximetry: on room air is 96 %. pm1 Interpretation: normal. 11/25 16:45 Order name: Basic Metabolic Panel; Complete Time: 17:52 pm1 11/25 16:45 Order name: CBC with Diff; Complete Time: 17:40 pm1 11/25 16:45 Order name: LFT's; Complete Time: 17:52 pm1 11/25 16:45 Order name: Magnesium; Complete Time: 17:52 pm1 11/25 16:45 Order name: NT PRO-BNP; Complete Time: 17:52 pm1 11/25 16:45 Order name: PT-INR; Complete Time: 17:40 pm1 11/25 16:45 Order name: Troponin HS; Complete Time: 17:52 pm1 11/25 16:45 Order name: XRAY Chest (1 view); Complete Time: 18:03 pm1 11/25 16:45 Order name: EKG; Complete Time: 16:46 pm1 11/25 16:45 Order name: Cardiac monitoring; Complete Time: 17:09 pm1 11/25 16:45 Order name: EKG - Nurse/Tech; Complete Time: 17:09 pm1 11/25 18:06 Order name: COVID-19 SARS RT PCR (Document "Date of Onset" if Symptomatic); Complete [email or web address] Time: 10:08 11/25 16:45 Order name: IV Saline Lock; Complete Time: 17:09 pm1 11/25 16:45 Order name: Labs collected and sent; Complete Time: 17:09 pm1 11/25 16:45 Order name: O2 Per Protocol; Complete Time: 17:09 pm1 11/25 16:45 Order name: O2 Sat Monitoring; Complete Time: 17:09 pm1 Administered Medications: 17:35 Drug: Lasix (furosemide) 40 mg Route: IVP; Site: right antecubital; ab2 19:39 Follow up: Response: No adverse reaction ab2 19:28 Drug: Insulin Regular Human 10 units {Co-Signature: lp1 (Stephy Dutta RN).} Route: Sub-Q; ab2 Site: left upper arm; 19:39 Follow up: Response: No adverse reaction ab2 Disposition Summary: 11/25/21 19:04 Discharge Ordered Location: Home pm1 Problem: new pm1 Symptoms: have improved pm1 Condition: Stable pm1 Diagnosis - Hyperglycemia, unspecified pm1 - Unspecified systolic (congestive) heart failure pm1 Followup: pm1 - With: Emergency Department - When: As needed - Reason: Worsening of condition Followup: pm1 - With: Private Physician - When: 2 - 3 days - Reason: Recheck today's complaints, Continuance of care, Re-evaluation by your physician Discharge Instructions: - Discharge Summary Sheet pm1 - Hyperglycemia pm1 - Blood Glucose Monitoring, Adult pm1 - Diabetes Mellitus and Exercise pm1 - Diabetes Mellitus and Nutrition, Adult pm1 - Heart Failure Action Plan pm1 - Living With Heart Failure pm1 Forms: - Medication Reconciliation Form pm1 - Thank You Letter pm1 - Antibiotic Education pm1 - Prescription Opioid Use pm1 Signatures: Dispatcher [employer] Tiffany Sharma, RN RN iw Haseeb Pat NP AUTO DETAILER pm1 Harshil Chambers ab2 Stephy Dutta RN lp1 Corrections: (The following items were deleted from the chart) 16:35 16:35 Home Meds: amlodipine 5 mg tab 1 tab twice a day; iw iw
[2021-11-25] MEDS ORDERED: INSULIN -REGULAR HUMAN 50 UNIT/0.5 ML ML ONE (19:12)
[2021-11-25 20:56] VITALS: TEMP 98.5
[2021-11-25 20:59] VITALS: BP 191/105; O2SAT 100
--- NOTE | 2021-11-26 09:23 | EKG ---
Test Date: 2021-11-25 Test Time: 16:50:12 Edm Operator: TEMI MEASUREMENT RESULTS: Intervals: Rate: 81 MN: 114 QRSD: 66 QT: 420 QTc: 487 [place]: P: 58 MN: 114 QRS: 20 T: -54 INTERPRETIVE STATEMENTS: Normal sinus rhythm Cannot rule out Anterior infarct, age undetermined Abnormal ECG Compared to ECG 06/25/2021 09:12:53 No significant changes Electronically Signed On 11-26-21 09:22:27 CDT by Garret Parish
== END 2021-11-25 19:40 | disposition home or self-care (01) ==
LOC: ER 15:54
DX: E11.65 Type 2 diabetes mellitus with hyperglycemia (principal); I50.20 Unspecified systolic (congestive) heart failure; I10 Essential (primary) hypertension; E78.00 Pure hypercholesterolemia, unspecified; Z20.822 Contact with and (suspected) exposure to COVID-19; Z88.0 Allergy status to penicillin
CPT/HCPCS: 93005; 85025; 80048; 36415; 83735; 85610; 80076; 84484; 83880; 71045; 96372; 96374; 99284; U0003; J1815; J1940

== ENCOUNTER 2021-12-03 15:49 | Emergency (ER) | payer OTHER ==
--- OUTSIDE RECORDS SUMMARY | 2021-12-03 15:52 | XMS REPORT | Continuity of Care Document ---
:1970 Author Organization [facility] t Address [address] [place] [address] Care Team Providers Name Role Phone Pcp, Does Not Have A Primary Care Physician Heladio_Carter Attending Clinician Unavailable BEA Attending Clinician Unavailable Jono Bills MA Attending Clinician Unavailable Elaine Admitting Clinician Unavailable BEA Admitting Clinician Unavailable Payers Payer Name Policy Type Policy Number Effective Date Expiration Date Patrick eng [employer] - CHOICE [id number] 2000 00:00:00 (POS II) Problems Condition Condition Condition Status Onset Resolution Last Treating Co mments Source Name Details Category Date Date Treatment Clinician Date Depressive Depressive Problem Active [facility] disorder Disorder 3-10 Family 00:00: Practic 00 e Chronic Chronic Disease Active 2020-07 Univers diastolic diastolic 2-17 ity of heart heart 00:00: [place] failure failure 00 Medical Branch Hypoalbumi Hypoalbumi Problem Active 2020-07 [facility] nemia nemia 0-10 Family 00:00: Practic 00 e Obstructiv Obstructiv Problem Active 2020-07 [facility] e sleep e Sleep 0-10 Family apnea Apnea 00:00: Practic syndrome Syndrome 00 e Localized Localized Disease Active 2020-07 Uni vers edema due edema due 0-02 ity of to fluid to fluid 00:00: [place] overload overload 00 Medica l Branch Body mass Body mass Disease Active 2020-07 Uni vers index index 0-02 ity of (BMI) (BMI) 00:00: [place] 45.0-49.9, 45.0-49.9, 00 Me dical adult adult Branch Benign Benign Disease Active 2020-07 Univers hypertensi hypertensi 0-02 it y of on with on with 00:00: [place] chronic chronic 00 Medical kidney kidney Branch disease disease Hyperlipid Hyperlipid Disease Active 2020-07 U michel emia, emia, 0-02 it[place] of unspecifie [place] Nephrogeno Nephrogeno Disease Active 2020-07 U nivsina us us 0-01 it[place] of proteinuri proteinuri [place] Stage 3a Stage 3a Disease Active 2020-07 Unive rs chronic chronic 0-01 ity of kidney kidney 00:00: [place] disease disease 00 Medical Branch 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 0- ity of mellitus mellitus 00:00: [place] with with 00 Medical diabetic diabetic Branch polyneurop polyneurop athy athy Hypoalbumi Hypoalbumi Disease Active 2020-07 U michel nemia nemia 0- ity of 00:00: [place] 00 Medical Branch Chronic Chronic Problem Active [facility] kidney Kidney 8-25 Family disease Disease 00:00: Practic stage 3 Stage 3 00 e Dyspnea on Dyspnea on Problem Active [facility] exertion Exertion 8-25 Family 00:00: Practic 00 e Proteinuri Proteinuri Problem Active [facility] a a 8-25 Family 00:00: Practic 00 e Foot Foot Problem Active [facility] callus Callus 6-28 Family 00:00: Practic 00 e Tinea Tinea Problem Active [facility] pedis Pedis 6- Family 00:00: Practic 00 e Long-term Long-term Problem Active Alec joshua current Current 6 Family use of Use of 00:00: Practic insulin Insulin 00 e Type 2 Type 2 Problem Active [facility] diabetes Diabetes 6-28 Family mellitus Mellitus 00:00: Practi c 00 e Morbid Morbid Problem Active [facility] obesity Obesity 6-28 Family 00:00: Practic 00 e Macular Macular Problem Active [facility] edema and Edema and 9-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 00:00: Pr actic y due to y Due to 00 e type 2 Type 2 diabetes Diabetes mellitus Mellitus Hyperlipid Hyperlipid Problem Active [facility] emia emia 9-13 Family 00:00: Practic 00 e Essential Essential Problem Active Alec araujoe hypertensi Hypertensi 9-13 Fa benigno on on 00:00: Practic 00 e Clinical Clinical Problem Active [facility] finding Finding 1-10 Family 00:00: Practic 00 e 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 Formattin g of this note might be different from the original. Last Assessmen t & Plan: Formattin g of this note might be different from the original. Patient has BMI of 47 I encourage d her to lose weight which will also help her symptoms of nausea and gastroeso phageal reflux disease Gastroesop Gastroesop Disease Active Overview : [facility] 4-15 Formattin ity of reflux reflux 00:00: g of this [place] disease disease 00 note Medical might be Branch different from the original. Formattin g of [...] Date Date Clinician Penicill Propensi Active Dizziness Uni vers ins ty to 5-24 ity of adverse 00:00: [place] reaction 00 Medical s Branch PENICILL Allergy Active Fatal Anaphylaxis [place] IN G to Family BENETHAM substanc Practi c INE e e PENICILL Allergy Active Anaphylaxis [place] IN G to Family ALEJO navarro Practi c NE e e Social History Social Habit Start Date Stop Date Quantity Comments Source Sex Assigned At [birth year] [facility] 00:00:00 00:00:00 Medical Branch Smoking Status Start Date Stop Date Source Unknown if ever smoked [facility] Never Smoker [place] [facility] Medications Ordered Filled Start Stop Current Ordering Indication Dosage Frequency Signature Comments Components Source Medication Medication Date Date Medication? Clinician (SIG) Name Name dulaglutide Yes inject Univ ers (TRULICITY) 1-14 under the ity of 0.75 mg/0.5 07:22: skin. [facility] PnIj 13 [facility] Branch amLODIPine Yes 5mg Take 5 mg Un lidia 5 mg tablet 1-14 by mouth. ity of 07:22: [place] 13 Medical Branch furosemide 2020-07- No 40mg Take 40 mg Univers 40 mg 09-09-19 by mouth. ity of tablet 00:00: 05:59 [place] 00 :00 Medical Branch ramipriL 10 2020-07- No 10mg Take 10 mg Univers mg capsule 09-08-18 by mouth. ity of 00:00: 05:59 [place] 00 :00 Medical Branch hydrALAZINE Yes 50mg Take 50 mg Univers 50 mg 9-13 by mouth. ity of tablet 00:00: [place] 00 [facility] Branch metoprolol Yes 100mg Take 100 Un lidia tartrate 9-13 mg by ity of 100 mg 00:00: mouth. [place] tablet 00 Medical Branch albuterol albuterol No albuterol [place] sulfate HFA [...] SHORTNESS OF BREATH amlodipine amlodipine No amlodipine Village 5 mg tablet 5 mg tablet 5 mg F amily TAKE 1 TAKE 1 tablet Practic TABLET BY TABLET BY TAKE 1 e MOUTH TWICE MOUTH TWICE TABLET BY A DAY A DAY MOUTH TWICE A DAY atorvastati atorvastati No atorvastat [facility] n 20 mg n 20 mg in 20 mg Famil y tablet TAKE tablet TAKE tablet Practic 1 TABLET BY 1 TABLET BY TAKE 1 e MOUTH MOUTH TABLET BY EVERYDAY AT EVERYDAY AT MOUTH BEDTIME BEDTIME EVERYDAY AT BEDTIME azithromyci azithromyci No azithromyc [facility] n 250 mg n 250 mg in 250 mg Fa benigno tablet TAKE tablet TAKE tablet Practic 2 [...] x 3/16" USE 3 3/16" USE 3 316" USE TIMES TIMES 3 TIMES benzonatate benzonatate No [facility] 100 mg 100 mg e 100 mg Family capsule capsule capsule Practi c TAKE 1 TAKE 1 TAKE 1 e CAPSULE BY CAPSULE BY CAPSULE BY MOUTH FOUR MOUTH FOUR MOUTH FOUR TIMES A DAY TIMES A DAY TIMES A NEEDED NEEDED DAY FOR COUGH FOR COUGH NEEDED FOR COUGH benzonatate benzonatate No [facility] 200 mg 200 mg e 200 mg Family capsule capsule capsule Practi c TAKE 1 TAKE 1 TAKE 1 e CAPSULE BY CAPSULE BY CAPSULE BY MOUTH EVERY MOUTH EVERY MOUTH 8 HOURS 8 HOURS EVERY 8 NEEDED NEEDED HOURS NEEDED bupropion bupropion No 1 Q1D bupropion [facility] HCl XL 150 HCl XL 150 HCl XL 150 Family mg 24 hr mg 24 hr mg 24 hr Pra ctic tablet, tablet, tablet, e extended extended extended release release release Take 1 Take 1 Take 1 tablet tablet tablet every day every day every day by oral by oral by oral route for route for route for 30 days. 30 days. 30 days. cefuroxime cefuroxime No cefuroxime [facility] axetil 250 axetil 250 axetil 250 Family mg tablet mg tablet mg tablet Practic TAKE 1 TAKE 1 TAKE 1 e TABLET BY TABLET BY TABLET BY MOUTH TWICE MOUTH TWICE MOUTH A DAY A DAY TWICE A DAY ciprofloxac ciprofloxac No ciprofloxa [facility] in 500 mg in 500 mg harvinder 500 mg Family tablet TAKE tablet TAKE tablet Practic 1 TABLET BY 1 TABLET BY TAKE 1 e MOUTH TWICE MOUTH TWICE TABLET BY A DAY A DAY MOUTH TWICE A DAY Farxiga 10 Farxiga 10 No Farxiga 10 Village mg tablet mg tablet mg tablet Family TAKE 1 TAKE 1 TAKE 1 Practic TABLET BY TABLET BY TABLET BY e MOUTH EVERY MOUTH EVERY MOUTH DAY IN THE DAY IN THE EVERY DAY MORNING MORNING IN THE MORNING fluconazole fluconazole No fluconazol [facility] 150 mg 150 mg e 150 mg [...] DAYS DAYS DAYS furosemide furosemide No furosemide [place] 20 mg 20 mg 20 mg Family tablet TAKE tablet TAKE tablet Practic 1 TABLET BY 1 TABLET BY TAKE 1 e MOUTH EVERY MOUTH EVERY TABLET BY DAY DAY MOUTH EVERY DAY furosemide furosemide No furosemide [facility] 40 mg 40 mg 40 mg Family tablet TAKE tablet TAKE tablet Practic 2 TABLETS 2 TABLETS TAKE 2 e BY MOUTH BY MOUTH TABLETS BY TWICE A DAY TWICE A DAY MOUTH TWICE A DAY Humulin R Humulin R No Humulin R Village U-500 U-500 U-500 Family (Conc) (Conc) (Conc) [...] directed; TDD 200 hydralazine hydralazine No hydralazin [facility] 25 mg 25 mg e 25 mg Family tablet TAKE tablet TAKE tablet Practic 1 TABLET BY 1 TABLET BY TAKE 1 e MOUTH 3 MOUTH 3 TABLET BY TIMES A DAY TIMES A DAY MOUTH 3 WITH FOOD WITH FOOD TIMES A DAY WITH FOOD hydralazine hydralazine No hydralazin [facility] 50 mg 50 mg e 50 mg Family tablet TAKE tablet TAKE tablet Practic 1 & 1/2 1 & 1/2 TAKE 1 & e TABLET BY TABLET BY 1/2 TABLET MOUTH THREE MOUTH THREE BY MOUTH TIMES A DAY TIMES A DAY THREE TIMES A DAY metoclopram metoclopram No metoclopra [facility] juan antonio 10 mg juan antonio 10 mg mide 10 mg Family tablet TAKE tablet TAKE tablet Practic 3 TABLETS 3 TABLETS TAKE 3 e BY MOUTH BY MOUTH TABLETS BY DIRECTED DIRECTED MOUTH USE USE DIRECTED DIRECTED DIRECTED USE PER YOUR PER YOUR DIRECTED COLONOSCOPY COLONOSCOPY PER YOUR PREP PACKET PREP PACKET COLONOSCOP Y PREP PACKET metoprolol [facility]oprolol No [facility] tartrate tartrate tartrate Fam livan 100 mg 100 mg 100 mg Practic tablet TAKE tablet TAKE tablet e 1 TABLET BY 1 TABLET BY TAKE 1 MOUTH TWICE MOUTH TWICE TABLET BY A DAY A DAY MOUTH TWICE A DAY metoprolol metoprolol No metoprolol [facility] tartrate 50 tartrate 50 tartrate Family mg [...] miscell. route. OneTouch OneTouch No 1strip( TID [facility] Verio test Verio test s) Verio test [...] s route. us route. promethazin promethazin [facility] mg e 25 mg ne 25 mg Famil y tablet TAKE tablet TAKE tablet Practic 1 TABLET BY 1 TABLET BY TAKE 1 e MOUTH FOUR MOUTH FOUR TABLET BY TIMES A DAY TIMES A DAY MOUTH FOUR NEEDED NEEDED TIMES A FOR NAUSEA/ FOR NAUSEA/ DAY VOMITING VOMITING NEEDED FOR NAUSEA/ VOMITING promethazin prom[facility]azin [facility] [place] e-[facility] 6.25 e-DM 6.25 ne-DM 6.25 Family mg-15 mg/5 mg-15 mg/5 mg-15 mg/5 Practic mL oral mL oral mL oral e syrup TAKE syrup TAKE syrup TAKE 5 ML BY 5 ML BY 5 ML BY MOUTH MOUTH MOUTH NIGHTLY NIGHTLY NIGHTLY NEEDED NEEDED NEEDED ramipril 10 ramipril 10 No ramipril [place] mg capsule mg capsule 10 mg Fa benigno TAKE 1 TAKE 1 capsule Practic CAPSULE BY CAPSULE BY TAKE 1 e MOUTH TWICE MOUTH TWICE CAPSULE BY A DAY A DAY MOUTH TWICE A DAY ramipril 5 ramipril 5 No ramipril 5 Village mg capsule mg capsule mg capsule Family TAKE 1 TAKE 1 TAKE 1 Practic CAPSULE (5 CAPSULE (5 CAPSULE (5 e MG TOTAL) MG TOTAL) MG TOTAL) BY MOUTH 1 BY MOUTH 1 BY MOUTH 1 (ONE) TIME (ONE) TIME (ONE) TIME EACH DAY EACH DAY EACH DAY Sutab Sutab No Sutab [place] 1.479-0.188 1.479-0.188 1.479-0.18 Family -0.225 gram -0.225 gram 8-0.225 Practic tablet tablet gram e PLEASE SEE PLEASE SEE tablet ATTACHED ATTACHED PLEASE SEE FOR FOR ATTACHED DETAILED DETAILED FOR DIRECTIONS DIRECTIONS DETAILED DIRECTIONS Trulicity Trulicity No 1.5mg Q1W Trulicity [place] 1.5 mg/0.5 1.5 mg/0.5 1.5 mg/0.5 Family [...] Source BP Diastolic 2021-09-29 00:00:00 97 mm[Hg] [facility] Height 2021-09-29 00:00:00 63 [in_i] [facility] BMI (Body Mass 2021-09-29 00:00:00 41.6 kg/m2 [facility] Family Index) Practice BP Systolic 2021-09-29 00:00:00 159 mm[Hg] [facility] Body Weight 2021-09-29 00:00:00 235 [lb_av] [facility] BP Diastolic 2021-03-16 00:00:00 88 mm[Hg] [facility] Height 2021-03-16 00:00:00 63 [in_i] [facility] BMI (Body Mass 2021-03-16 00:00:00 41.8 kg/m2 [facility] Family Index) Practice BP Systolic 2021-03-16 00:00:00 163 mm[Hg] [facility] Body Weight 2021-03-16 00:00:00 236.2 [lb_av] [facility] BP Diastolic 2021-01-17 00:00:00 95 mm[Hg] [facility] Height 2021-01-17 00:00:00 63 [in_i] [facility] BMI (Body Mass 2021-01-17 00:00:00 43 kg/m2 [facility] e Family Index) Practice BP Systolic 2021-01-17 00:00:00 156 mm[Hg] [facility] Body Weight 2021-01-17 00:00:00 243 [lb_av] [place] Procedures This patient has no known procedures. Plan of Care Planned Activity Planned Date Details Comments Source Diagnostic Test 2021-09-29 glucose, fingerstick, Alec lewis Family Pending 00:00:00 blood [code = Practice glucose, fingerstick, blood] Diagnostic Test 2021-09-29 hemoglobin A1C, Jaci riley Pending 00:00:00 fingerstick [code = Practice hemoglobin A1C, fingerstick] Encounters Start End Encounter Admission Attending Care Care Encounter Source Date/Time Date/Time Type Type Clinicians Facility Department ID 2021-10-06 2021-10-06 Outpatient Heladio_Carter [facility] [id number] 3-20 [facility] 05:55:00 05:55:00 [id number] Family Practic e 2021-10-06 2021-10-06 Outpatient Daniel_T VFP V[facility] [id number] [address] [place] [address] 05:55:00 05:55:00 [id number] Family Practic e 2021-09-30 2021-09-30 Outpatient Daniel_T VFP [facility] [id number] [address] 01:27:00 01:27:00 [id number] Family Practic e 2021-09-29 2021-09-29 Outpatient Daniel_T VFP VFP [id number] [address] [place] [address] 11:09:00 11:09:00 [id number] Family Practic e 2021-09-29 2021-09-29 Constantino VFP [place] - [id number] V illage 00:00:00 00:00:00 [facility] Family Leija, Batsheva - Jenaro del rio MD: [id number] VM_HOU_Shad e [facility], [address], [place] [address] , Ph. 2021-09-24 2021-09-26 Inpatient AMY VILLE [id number] [address] [place] [address] 00:00:00 00:00:00 ANDER [address] 2021-09-25 2021-09-25 Outpatient Daniel_T VFP VFP [id number] [address] [place] [address] 08:26:00 08:26:00 [id number] Family Practic e 2021-09-25 2021-09-25 Outpatient Daniel_T VFP VFP [id number] [address] [place] [address] 08:26:00 08:26:00 [id number] Family Practic e 2021-08-05 2021-08-05 Cam Bills [facility] [id number] Univers 00:00:00 00:00:00 Only Jodi J SPECIALTY [id number] ity [facility] [id number] [facility] [id number] [facility] 314 Branch 2021-04-06 2021-04-06 Outpatient Daniel_T VFP VFP [id number] [address] [place] [address] 02:39:00 02:39:00 [id number] Family Practic e 2021-04-06 2021-04-06 Outpatient Daniel_T VFP VFP [id number] [address] [place] [address] 02:39:00 02:39:00 [id number] Family Practic e 2021-03-17 2021-03-17 Outpatient Daniel_T VFP VFP [id number] [address] [place] [address] 07:11:00 07:11:00 [id number] Family Practic e 2021-03-16 2021-03-16 Outpatient Daniel_T VFP VFP [id number] [address] [place] [address] 03:56:00 03:56:00 [id number] Family Practic e 2021-03-16 2021-03-16 Constantino VFP [place] - [id number] V illage 00:00:00 00:00:00 [facility] Family LeijaBatsheva MD: [id number] Avani mcmanus [facility] [address] [address] , Ph. 2021-02-05 2021-02-05 Outpatient Daniel_T VFP VFP [id number] [address] [place] [address] 01:36:00 01:36:00 [id number] Family Practic e 2021-02-05 2021-02-05 Outpatient Daniel_T VFP VFP [id number] [address] [place] [address] 01:36:00 01:36:00 [id number] Family Practic e 2021-02-05 2021-02-05 Outpatient Daniel_T VFP VFP [id number] [address] [place] [address] 01:36:00 01:36:00 [id number] Family Practic e 2021-01-20 2021-01-20 Outpatient Daniel_T VFP VFP [id number] [address] [place] [address] 05:38:00 05:38:00 [id number] Family Practic e 2021-01-17 2021-01-17 Outpatient Daniel_T VFP VFP [id number] [address] [place] [address] 03:56:00 03:56:00 [id number] Family Practic e 2021-01-17 2021-01-17 Constantino VFP [place] - [id number] V illage 00:00:00 00:00:00 [facility] Family LeijaBatsheva MD: [id number] Avani mcmanus [facility], [address], [place] [address] , Ph. 2021-01-04 2021-01-04 Outpatient Daniel_T VFP VFP [id number] 10-09 [facility] 05:34:00 05:34:00 [id number] Family Practic e 2020-12-08 2020-12-08 Outpatient Andiel_T VFP VFP [id number] 10-09 [facility] 12:23:00 12:23:00 [id number] Family Practic e 2020-04-02 2020-04-02 Outpatient andiel_t VFP VFP [id number] 10-09 [facility] 12:23:00 12:23:00 [id number] Family Practic e Results Test Description Test Time Test Comments Results Result Comments Source Glucose [Mass/volume] in Capillary blood 2021-09-29 10:39:34 Test Item Value Reference Range Interpretation Comme nts Blood Glucose: mg/dl (test code = Blood Glucose: mg/dl) [address] [place] [facility] A1[place] measurement device [id number] 10:39:20 Test Item Value Reference Range Interpretation Comments Hemoglobin A1C Fingerstick: (test code 13.3 = Hemoglobin A1C Fingerstick:) [facility] RNA [Presence] in Respiratory specimen by SYLVIE with probe [id number] 07:56:28 Test Item Value Reference Range Interpretation Comments SARS-CoV-2 (COVID-19) RNA Not detected [Presence] in Respiratory specimen by SYLVIE with probe detection (test code = 96705-8) Whether patient is employed in a Unknown healthcare setting (test code = 50985-2) Whether the patient has symptoms Unknown related to condition of interest (test code = 09571-1) Whether the patient was Unknown hospitalized for condition of interest (test code = 12816-1) Whether the patient was admitted Unknown to intensive care unit (ICU) for condition of interest (test code = 74707-4) Whether patient resides in a Unknown congregate care setting (test code = 14216-7) status (test code = Unknown 67601-4) Date and time of symptom onset Unknown (test code = 13609-3) SARS-CoV-2 (COVID-19) RNA [Presence] in Respiratory specimen by SYLVIE with probe [id number] 07:56:28 Test Item Value Reference Range Interpretation Comments SARS coronavirus RNA [Presence] Not detected in Isolate by SYLVIE with probe detection (test code = 14460-2) Whether patient is employed in a Unknown healthcare setting (test code = 48962-1) Whether the patient has symptoms Unknown related to condition of interest (test code = 68115-5) Whether the patient was Unknown hospitalized for condition of interest (test code = 82091-9) Whether the patient was admitted Unknown to intensive care unit (ICU) for condition of interest (test code = 34463-9) Whether patient resides in a Unknown congregate care setting (test code = 64932-7) status (test code = Unknown 15263-2) Date and time of symptom onset Unknown (test code = 22635-7) Glucose [Mass/volume] in Capillary [id number] 13:51:00 Test Item Value Reference Range Interpretation Comments Blood Glucose: mg/dl (test code = Blood 211 Glucose: mg/dl) [place]
[2021-12-03 17:37] LABS: Hematocrit 35.2 % (36.0-45.0); Lymphocytes % 23.3 % (15.3-44.8); MPV 8.7 fL (7.6-11.3); RBC Red Blood Cell Count 4.19 M/uL (3.86-4.86)
[2021-12-03 17:38] LABS: Protime INR 1.02
[2021-12-03 17:44] LABS: Albumin 1.7 g/dL (3.4-5.0); Bilirubin Direct 0.1 mg/dL (0-0.2); Bilirubin Total 0.3 mg/dL (0.2-1.0); Magnesium 1.8 mg/dL (1.8-2.4); Potassium 3.4 mmol/L (3.5-5.1); Protein, Total 5.3 g/dL (6.4-8.2)
--- NOTE | 2021-12-03 18:45 | RAD REPORT ---
EXAM DESCRIPTION: RAD - Chest Single View - 12/03/2021 6:32 pm CLINICAL HISTORY: SOB COMPARISON: Chest Single View dated 11/25/2021; Chest Pa And Lat (2 Views) dated 06/27/2021; Chest Sing le View dated 06/25/2021; Chest Pa And Lat (2 Views) dated 03/04/2021 FINDINGS: Lines: None. Lungs: No evidence of edema or pneumonia. Pleural: No significant pleural effusions or pneumothorax. Cardiac: The heart size is within normal limits. Bones: No acute fractures. Other: IMPRESSION: No acute cardiopulmonary disease.
[2021-12-03] MEDS ORDERED: INSULIN -REGULAR HUMAN 50 UNIT/0.5 ML ML ONE (19:36)
[2021-12-03] MEDS ORDERED: FUROSEMIDE 40 MG/4 ML VIAL ONE (19:39)
--- NOTE | 2021-12-03 20:50 | ER ---
Nurse's Notes [facility] Name: Mariaa Peguero Age: 51 yrs Sex: Female : 1970 Arrival Date: 12/03/2021 Time: 15:49 Bed 13 Private MD: Jamison Dong C Diagnosis: Diabetes mellitus due to underlying condition with hyperglycemia;Unspecified combined systolic (congestive) and diastolic (congestive) heart failure;Chronic kidney disease, unspecified Presentation: 12/03 15:57 Chief complaint: Spouse and/or significant other states: She has been feeling light jb4 headed. She has been having issues with her HTN and DM. She was given a new blood pressure medication and started it 2 days ago. After having her medications changed she had very low pressure today. Her pressure was in the 90's at home. Coronavirus screen: At this time, the client does not indicate any symptoms associated with coronavirus-19. Ebola Screen: No symptoms or risks identified at this time. Initial Sepsis Screen: Does the patient meet any 2 criteria? No. Patient's initial sepsis screen is negative. Does the patient have a suspected source of infection? No. Patient's initial sepsis screen is negative. Risk Assessment: Do you want to hurt yourself or someone else? Patient reports no desire to harm self or others. Onset of symptoms was December 03, 2021. Transition of care: patient was not received from another setting of care. 15:57 Method Of Arrival: Wheelchair jb4 15:57 Acuity: SARA 3 jb4 Historical: - Allergies: 15:59 PENICILLINS; jb4 - PMHx: 15:59 diabetes mellitus; Hypercholesterolemia; Hypertension; jb4 - PSHx: 15:59 ; Liver; jb4 - Immunization history:: Adult Immunizations not up to date. - Social history:: Smoking status: Patient denies any tobacco usage or history of. Patient/guardian denies using alcohol, street drugs. Screenin:26 Abuse screen: Denies threats or abuse. Nutritional screening: No deficits noted. jd3 Tuberculosis screening: No symptoms or risk factors identified. Fall Risk IV access (20 points). Ambulatory Aid- None/Bed Rest/Nurse Assist (0 pts). Gait- Normal/Bed Rest/Wheelchair (0 pts) Mental Status- Oriented to own ability (0 pts). Total Rinaldi Fall Scale indicates No Risk (0-24 pts). Assessment: 17:25 General: Appears in no apparent distress. comfortable, Behavior is calm, cooperative, jd3 appropriate for age. Pain: Denies pain. Neuro: Saha Agitation-Sedation Scale (RASS): 0 - Alert and Calm Level of Consciousness is awake, alert, obeys commands, Oriented to person, place, time, situation, Reports dizziness. Cardiovascular: Capillary refill < 3 seconds Patient's skin is warm and dry. Rhythm is regular. Respiratory: Airway is patent Respiratory effort is even, unlabored, Respiratory pattern is regular, symmetrical, Denies cough, shortness of breath. GI: No signs and/or symptoms were reported involving the gastrointestinal system. : No signs and/or symptoms were reported regarding the genitourinary system. EENT: No signs and/or symptoms were reported regarding the EENT system. Derm: Skin is intact, Skin is dry, Skin is normal, Skin temperature is warm. Musculoskeletal: Circulation, motion, and sensation intact. Range of motion: intact in all extremities. 19:10 Reassessment: Patient and/or family updated on plan of care and expected duration. Pain ag7 level reassessed. Patient is alert, oriented x 3, equal unlabored respirations, skin warm/dry/pink. Patient denies pain at this time. Patient states feeling better. Patient states symptoms have improved. Vital Signs: 15:57 BP 115 / 51; Pulse 88; Resp 16; Temp 97.9(TE); Pulse Ox 96% on R/A; Weight 104.33 kg; jb4 Height 5 ft. 3 in. (160.02 cm) (R); Pain 0/10; 17:26 BP 153 / 86; Pulse 87; Resp 16 S; Pulse Ox 95% on R/A; jd3 19:15 BP 137 / 94; Pulse 96; Resp 16 S; Pulse Ox 95% ; Pain 0/10; ag7 15:57 Body Mass Index 40.74 (104.33 kg, 160.02 cm) jb4 ED Course: 15:49 Patient arrived in ED. am2 15:50 Jamison Dong MD is Private Physician. am2 15:59 Triage completed. jb4 15:59 Arm band placed on right wrist. jb4 16:15 Honorio Youngblood PA is PHCP. cp 16:15 Deion Scott MD is Attending Physician. cp 16:21 Edison Patel, RN is Primary Nurse. jd3 17:25 Inserted saline lock: 20 gauge in right antecubital area, using aseptic technique. jd3 Blood collected. 17:26 Patient has correct armband on for positive identification. Bed in low position. Call jd3 light in reach. Side rails up X2. Adult w/ patient. Client placed on continuous cardiac and pulse oximetry monitoring. NIBP monitoring applied. telemetry monitor on. Pulse ox on. NIBP on. 18:34 XRAY Chest (1 view) In Process Unspecified. EDMS 20:48 Jamison Dong MD is Referral Physician. cp Administered Medications: 19:45 Drug: Lasix (furosemide) 40 mg Route: IVP; Site: right antecubital; ag7 19:45 Drug: Insulin Regular Human 10 units {Co-Signature: ruy (Shauna Soni RN).} Route: ag7 IVP; Site: Other; Medication: 17:26 VIS not applicable for this client. jd3 Point of Care Testing: Blood Glucose: 15:59 Blood Glucose: 300 mg/dL; jb4 Ranges: Outcome: 20:49 Discharge ordered by MD. cp 21:50 Patient left the ED. ll3 Signatures: Dispatcher [employer] EDPA Honorio Youngblood PA PA cp Hank Hammer, RN RN jb4 Maria De Jesus Hale am2 Edison Patel, RN RN jd3 Elgin Lee RN RN ll3 Unique Anthony RN RN ag7 Shauna redmond
--- NOTE | 2021-12-03 20:50 | EDPHYS ---
Physician Documentation [facility] Name: Mariaa Peguero Age: 51 yrs Sex: Female : 1970 Arrival Date: 12/03/2021 Time: 15:49 Bed 13 Private MD: Jamison Dong C ED Physician Deion Scott HPI: 12/03 16:55 This 51 yrs old Black Female presents to ER via Wheelchair with complaints of Blood cp Pressure Problem - low. 16:55 The patient presents with lightheadedness. cp 16:55 Onset: The symptoms/episode began/occurred today. Context: just prior to the episode cp the patient experienced no apparent symptoms. Associated signs and symptoms: Pertinent negatives: abdominal pain, chest pain, weakness. Patient's baseline: Neuro: alert and fully oriented, Motor: no deficits, Ambulation: walks without assistance, Speech: normal. Patient reports recent change in blood pressure medications and became concerned today after checking blood pressure and measuring systolic pressure in the 90's. Historical: - Allergies: 15:59 PENICILLINS; jb4 - PMHx: 15:59 diabetes mellitus; Hypercholesterolemia; Hypertension; jb4 - PSHx: 15:59 ; Liver; jb4 - Immunization history:: Adult Immunizations not up to date. - Social history:: Smoking status: Patient denies any tobacco usage or history of. Patient/guardian denies using alcohol, street drugs. ROS: 17:00 Constitutional: Negative for body aches, chills, fever, poor PO intake. cp 17:00 Eyes: Negative for injury, pain, redness, and discharge. cp 17:00 ENT: Negative for drainage from ear(s), ear pain, sore throat, difficulty swallowing, difficulty handling secretions. 17:00 Cardiovascular: Negative for chest pain, palpitations. 17:00 Respiratory: Positive for shortness of breath, on exertion. Negative for cough, wheezing. 17:00 Abdomen/GI: Negative for abdominal pain, vomiting, diarrhea, constipation. 17:00 Neuro: Positive for lightheaded, Negative for altered mental status, headache, syncope, near syncope, weakness. 17:00 All other systems are negative. Exam: 17:05 Constitutional: The patient appears in no acute distress, alert, awake, cp non-diaphoretic, non-toxic, well developed, well nourished. 17:05 Head/Face: Normocephalic, atraumatic. cp 17:05 Eyes: Periorbital structures: appear normal, Conjunctiva: normal, no exudate, no injection, Sclera: no appreciated abnormality, Lids and lashes: appear normal, bilaterally. 17:05 ENT: External ear(s): are unremarkable, Nose: is normal, Mouth: Lips: moist, Oral mucosa: pink and intact, moist, Posterior pharynx: Airway: no evidence of obstruction, patent. 17:05 Neck: ROM/movement: is normal, is supple, without pain, no range of motions limitations. 17:05 Chest/axilla: Inspection: normal. 17:05 Cardiovascular: Rate: normal, Rhythm: regular, Edema: is not appreciated, JVD: is not appreciated. 17:05 Respiratory: the patient does not display signs of respiratory distress, Respirations: normal, no use of accessory muscles, no retractions, labored breathing, is not present, Breath sounds: are clear throughout, no decreased breath sounds, no stridor, no wheezing. 17:05 Abdomen/GI: Inspection: abdomen appears normal, Palpation: abdomen is soft and non-tender, in all quadrants. 17:05 Back: pain, is absent, ROM is normal. 17:05 Neuro: Orientation: to person, place \T\ time. Mentation: is normal, Cerebellar function: is grossly normal, Motor: moves all fours, strength is normal, Sensation: no obvious gross deficits. 17:30 ECG was reviewed by the Attending Physician. cp Vital Signs: 15:57 BP 115 / 51; Pulse 88; Resp 16; Temp 97.9(TE); Pulse Ox 96% on R/A; Weight 104.33 kg; jb4 Height 5 ft. 3 in. (160.02 cm) (R); Pain 0/10; 17:26 BP 153 / 86; Pulse 87; Resp 16 S; Pulse Ox 95% on R/A; jd3 19:15 BP 137 / 94; Pulse 96; Resp 16 S; Pulse Ox 95% ; Pain 0/10; ag7 15:57 Body Mass Index 40.74 (104.33 kg, 160.02 cm) jb4 MDM: 16:19 Patient medically screened. cp 17:00 Differential diagnosis: cardiac arrhythmia, generalized weakness, GI bleed, cp hypovolemia, idiopathic dizziness, near-syncope, syncope. 20:49 Data reviewed: vital signs, nurses notes, lab test result(s), EKG, radiologic studies, cp plain films. 20:49 Test interpretation: by ED physician or midlevel provider: ECG, plain radiologic cp studies. Counseling: I had a detailed discussion with the patient and/or guardian regarding: the historical points, exam findings, and any diagnostic results supporting the discharge/admit diagnosis, lab results, radiology results, the need for outpatient follow up, an stock parts inspector, to return to the emergency department if symptoms worsen or persist or if there are any questions or concerns that arise at home. Response to treatment: Improved. Will discharge to home for continued monitoring. 12/03 16:14 Order name: Glucose, Ancillary Testing; Complete Time: 16:46 [facility] 12/03 17:05 Order name: Basic Metabolic Panel; Complete Time: 18:00 12/03 18:01 Interpretation: Normal except: K 3.4; GLUC 356; BUN 21; CRE 2.39; GFR 24; CA 8.1. 12/03 17:05 Order name: CBC with Diff; Complete Time: 18:00 12/03 18:01 Interpretation: Normal except: WBC 8.5; HCT 35.2. 12/03 17:05 Order name: LFT's; Complete Time: 18:00 12/03 20:48 Interpretation: Normal except: TP 5.3; ALB 1.7; GLOB 3.6; A/G 0.5. 12/03 17:05 Order name: Magnesium; Complete Time: 18:00 12/03 17:05 Order name: NT PRO-BNP; Complete Time: 18:00 12/03 18:01 Interpretation: Normal except: NT PRO-BNP 4461. 12/03 17:05 Order name: PT-INR; Complete Time: 18:00 12/03 17:05 Order name: Troponin HS; Complete Time: 18:00 12/03 17:05 Order name: XRAY Chest (1 view); Complete Time: 18:51 12/03 17:05 Order name: EKG; Complete Time: 17:06 12/03 21:03 Order name: Glucose, Ancillary Testing [facility] 12/03 17:05 Order name: Cardiac monitoring; Complete Time: 17:25 cp 12/03 17:05 Order name: EKG - Nurse/Tech; Complete Time: 17:25 cp 12/03 17:05 Order name: IV Saline Lock; Complete Time: 17:25 cp 12/03 17:05 Order name: Labs collected and sent; Complete Time: 17:25 cp 12/03 17:05 Order name: O2 Per Protocol; Complete Time: 17:06 cp 12/03 17:05 Order name: O2 Sat Monitoring; Complete Time: 17:06 cp EC:30 Rate is 86 beats/min. Rhythm is regular. DC interval is normal. QRS interval is normal. cp QT interval is normal. T waves are Inverted in lead III. Interpreted by me. Reviewed by me. Administered Medications: 19:45 Drug: Lasix (furosemide) 40 mg Route: IVP; Site: right antecubital; ag7 19:45 Drug: Insulin Regular Human 10 units {Co-Signature: ruy (Shauna Soni RN).} Route: ag7 IVP; Site: Other; Point of Care Testing: Blood Glucose: 15:59 Blood Glucose: 300 mg/dL; jb4 Ranges: Critical Glucose Levels:Adult <50 mg/dl or >400 mg/dl <40 mg/dl or >180 mg/dl Disposition Summary: 12/03/21 20:49 Discharge Ordered Location: Home cp Problem: an acute exacerbation cp Symptoms: have improved cp Condition: Stable cp Diagnosis - Diabetes mellitus due to underlying condition with hyperglycemia cp - Unspecified combined systolic (congestive) and diastolic (congestive) heart failure cp - Chronic kidney disease, unspecified cp Followup: cp - With: Jamison Dong MD - When: 2 - 3 days - Reason: Recheck today's complaints Discharge Instructions: - Discharge Summary Sheet cp - Heart Failure, Diagnosis cp - Hyperglycemia cp - Food Basics for Chronic Kidney Disease cp - Blood Glucose Monitoring, Adult cp - Diabetes Mellitus and Nutrition, Adult cp - Chronic Kidney Disease, Adult cp Forms: - Medication Reconciliation Form cp - Thank You Letter cp - Antibiotic Education cp - Prescription Opioid Use cp Signatures: Dispatcher [employer] EDMS Honorio Youngblood PA PA cp Hank Hammer RN RN jb4 Unique Anthony RN RN ag7 Shauna redmond Corrections: (The following items were deleted from the chart) 20:48 20:47 Normal except. cp cp
[2021-12-04 00:48] VITALS: TEMP 97.9
[2021-12-04 00:49] VITALS: O2SAT 95
[2021-12-04 00:52] VITALS: BP 137/94
--- NOTE | 2021-12-04 14:46 | EKG ---
Test Date: 2021-12-03 Test Time: 17:24:09 Oral And Maxillofacial Surgeon: IVET MEASUREMENT RESULTS: Intervals: Rate: 86 NC: 120 QRSD: 70 QT: 422 QTc: 504 [place]: P: 53 NC: 120 QRS: -14 T: 61 INTERPRETIVE STATEMENTS: Normal sinus rhythm Cannot rule out Anterior infarct, age undetermined Prolonged QT Abnormal ECG Compared to ECG 11/25/2021 16:50:12 Prolonged QT interval now present Myocardial infarct finding still present Electronically Signed On 12-04-21 14:45:52 CDT by Jayce Nieto
== END 2021-12-03 21:50 | disposition home or self-care (01) ==
LOC: ER 15:49
DX: E11.22 Type 2 diabetes mellitus with diabetic chronic kidney disease (principal); I12.9 Hypertensive chronic kidney disease with stage 1 through stage 4 chronic kidney disease, or unspecified chronic kidney disease; N18.9 Chronic kidney disease, unspecified; I50.40 Unspecified combined systolic (congestive) and diastolic (congestive) heart failure; Z88.0 Allergy status to penicillin
CPT/HCPCS: 93005; 85025; 80048; 36415; 83735; 85610; 82947 ×2; 80076; 84484; 83880; 71045; 99284; J1815; J1940

== ENCOUNTER 2021-12-21 11:59 | Emergency (ER) | payer OTHER ==
--- OUTSIDE RECORDS SUMMARY | 2021-12-21 12:03 | XMS REPORT | Continuity of Care Document ---
:1970 Author Organization [facility] t Address [address] [place] [address] Care Team Providers Name Role Phone Pcp, Does Not Have A Primary Care Physician Heladio_Carter Attending Clinician Unavailable BEA Attending Clinician Unavailable Jono Bills MA Attending Clinician Unavailable Elaine Admitting Clinician Unavailable BEA Admitting Clinician Unavailable Payers Payer Name Policy Type Policy Number Effective Date Expiration Date Patrick eng [employer] - CHOICE [id number] 2000 00:00:00 (POS II) Problems Condition Condition [...] y of on with on with 00:00: [place] chronic chronic 00 Medical kidney kidney Branch [...] chronic 0-01 ity of kidney kidney 00:00: [place] disease disease 00 Medical Branch 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 0- ity of mellitus mellitus 00:00: [place] with with 00 Medical diabetic diabetic Branch polyneurop polyneurop athy athy Hypoalbumi Hypoalbumi Disease Active 2020-07 U michel nemia nemia 0- ity of 00:00: [place] 00 Medical Branch Chronic Chronic Problem Active [facility] kidney Kidney 8-25 Family disease Disease 00:00: Practic stage 3 Stage 3 00 e Dyspnea on Dyspnea on Problem Active [facility] exertion Exertion 8-25 Family 00:00: Practic 00 e Proteinuri Proteinuri Problem Active [facility] a a 8-25 Family 00:00: Practic 00 e Foot Foot Problem Active [facility] callus Callus 6-28 Family 00:00: Practic 00 e Tinea Tinea Problem Active [facility] pedis Pedis 6- Family 00:00: Practic 00 e Long-term Long-term Problem Active Alec joshua current Current 6 Family use of Use of 00:00: Practic insulin Insulin 00 e Type 2 Type 2 Problem Active [facility] diabetes Diabetes 6-28 Family mellitus Mellitus 00:00: Practi c 00 e Morbid Morbid Problem Active [facility] obesity Obesity 6-28 Family 00:00: Practic 00 e Macular Macular Problem Active [facility] edema and Edema and 9-13 Fami ly [...] Active [place] finding of Finding of 01-02 [facility] observatio Observatio 00:00: Pr actic n of n of 00 e patient Patient Obesity Obesity Disease Active Overview: [facility] ers 4-15 Formattin ity of 00:00: g of this [place] 00 note Medical might be Branch different [...] disease Gastroesop Gastroesop Disease Active Overview : [facility] 4-15 Formattin ity of reflux reflux 00:00: [...] llage IN G to Family ALEJO navarro Pracdana c NE e e Social History Social Habit Start Date Stop Date Quantity Comments Source Sex Assigned At [birth year] [place] [facility] 00:00:00 00:00:00 Medical Branch Smoking Status Start Date Stop Date Source Unknown if ever smoked [facility] Never Smoker [facility] Medications Ordered Filled Start Stop Current Ordering Indication Dosage Frequency Signature Comments Components Source Medication Medication Date Date Medication? Clinician (SIG) Name Name amLODIPine Yes 5mg Take 5 mg Un lidia 5 mg tablet 1-14 by mouth. ity of 07:22: [place] 13 [facility] dulaglutide Yes inject Univ ers (TRULICITY) 1-14 under the ity of 0.75 mg/0.5 07:22: skin. [facility] PnIj 13 [facility] Branch furosemide 2020-07- No 40mg Take 40 mg Univers 40 mg 09-09-19 by mouth. ity of tablet 00:00: 05:59 [place] 00 :00 [facility] ramipriL 10 2020-07- No 10mg Take 10 mg Univers mg capsule 17 -18 by mouth. ity of 00:00: 05:59 [place] 00 :00 [facility] hydrALAZINE Yes 50mg Take 50 mg Univers 50 mg 9-13 by mouth. ity of tablet 00:00: [place] 00 [facility] metoprolol Yes 100mg Take 100 Un lidia tartrate 9-13 mg by ity of 100 mg 00:00: mouth. [place] tablet 00 Medical [place] albuterol albuterol No albuterol [place] sulfate HFA [...] TWICE A DAY atorvastati atorvastati No atorvastat [facility] n 20 mg n 20 mg in 20 mg Famil y tablet TAKE tablet TAKE tablet Practic 1 TABLET BY 1 TABLET BY TAKE 1 e MOUTH MOUTH TABLET BY EVERYDAY AT EVERYDAY AT MOUTH BEDTIME BEDTIME EVERYDAY AT BEDTIME azithromyci azithromyci No azithromyc [facility] n 250 mg n 250 mg in [...] TIMES TIMES 3 TIMES benzonatate benzonatate No [facility] 100 mg 100 mg e 100 mg Family capsule capsule capsule Practi c TAKE 1 TAKE 1 TAKE 1 e CAPSULE BY CAPSULE BY CAPSULE BY MOUTH FOUR MOUTH FOUR MOUTH FOUR TIMES A DAY TIMES A DAY TIMES A NEEDED NEEDED DAY FOR COUGH FOR COUGH NEEDED FOR COUGH benzonatate benzonatate No [facility] 200 mg 200 mg e 200 mg Family capsule capsule capsule Practi c TAKE 1 TAKE 1 TAKE 1 e CAPSULE BY CAPSULE BY CAPSULE BY MOUTH EVERY MOUTH EVERY MOUTH 8 HOURS 8 HOURS EVERY 8 NEEDED NEEDED HOURS NEEDED bupropion bupropion No 1 Q1D bupropion [facility] HCl XL 150 HCl XL 150 HCl [...] days. 30 days. cefuroxime cefuroxime No cefuroxime [facility] axetil 250 axetil 250 axetil 250 Family mg tablet mg tablet mg tablet Practic TAKE 1 TAKE 1 TAKE 1 e TABLET BY TABLET BY TABLET BY MOUTH TWICE MOUTH TWICE MOUTH A DAY A DAY TWICE A DAY ciprofloxac ciprofloxac No ciprofloxa [facility] in 500 mg in 500 mg harvinder [...] IN THE MORNING fluconazole fluconazole No fluconazol [facility] 150 mg 150 mg e 150 mg [...] MOUTH EVERY DAY furosemide furosemide No furosemide [facility] 40 mg 40 mg 40 mg Family [...] directed; TDD 200 hydralazine hydralazine No hydralazin [facility] 25 mg 25 mg e 25 mg Family tablet TAKE tablet TAKE tablet Practic 1 TABLET BY 1 TABLET BY TAKE 1 e MOUTH 3 MOUTH 3 TABLET BY TIMES A DAY TIMES A DAY MOUTH 3 WITH FOOD WITH FOOD TIMES A DAY WITH FOOD hydralazine hydralazine No hydralazin [facility] 50 mg 50 mg e 50 mg Family tablet TAKE tablet TAKE tablet Practic 1 & 1/2 1 & 1/2 TAKE 1 & e TABLET BY TABLET BY 1/2 TABLET MOUTH THREE MOUTH THREE BY MOUTH TIMES A DAY TIMES A DAY THREE TIMES A DAY metoclopram metoclopram No metoclopra [facility] juan antonio 10 mg juan antonio 10 mg mide 10 mg Family tablet TAKE tablet TAKE tablet Practic 3 TABLETS 3 TABLETS TAKE 3 e BY MOUTH BY MOUTH TABLETS BY DIRECTED DIRECTED MOUTH USE USE DIRECTED DIRECTED DIRECTED USE PER YOUR PER YOUR DIRECTED COLONOSCOPY COLONOSCOPY PER YOUR PREP PACKET PREP PACKET COLONOSCOP Y PREP PACKET metoprolol [facility]oprolol [facility] tartrate tartrate Fam livan 100 mg 100 mg 100 mg Practic tablet TAKE tablet TAKE tablet e 1 TABLET BY 1 TABLET BY TAKE 1 MOUTH TWICE MOUTH TWICE TABLET BY A DAY A DAY MOUTH TWICE A DAY metoprolol metoprolol No metoprolol [facility] tartrate 50 tartrate 50 tartrate Family mg [...] miscell. route. OneTouch OneTouch No 1strip( TID [facility] Verio test Verio test s) Verio test [...] s route. us route. promethazin promethazin [facility] 25 mg e 25 mg ne 25 mg Famil y tablet TAKE tablet TAKE tablet Practic 1 TABLET BY 1 TABLET BY TAKE 1 e MOUTH FOUR MOUTH FOUR TABLET BY TIMES A DAY TIMES A DAY MOUTH FOUR NEEDED NEEDED TIMES A FOR NAUSEA/ FOR NAUSEA/ DAY VOMITING VOMITING NEEDED FOR NAUSEA/ VOMITING promethazin promethazin [facility] e-[facility] 6.25 e-DM 6.25 ne-DM 6.25 [...] Source BP Diastolic 2021-09-29 00:00:00 97 mm[Hg] [facility] Height 2021-09-29 00:00:00 63 [in_i] [facility] BMI (Body Mass 2021-09-29 00:00:00 41.6 kg/m2 [facility] Family Index) Practice BP Systolic 2021-09-29 00:00:00 159 mm[Hg] [facility] Body Weight 2021-09-29 00:00:00 235 [lb_av] [facility] BP Diastolic 2021-03-16 00:00:00 88 mm[Hg] [facility] Height 2021-03-16 00:00:00 63 [in_i] [facility] BMI (Body Mass 2021-03-16 00:00:00 41.8 kg/m2 [facility] Family Index) Practice BP Systolic 2021-03-16 00:00:00 163 mm[Hg] [facility] Body Weight 2021-03-16 00:00:00 236.2 [lb_av] [facility] BP Diastolic 2021-01-17 00:00:00 95 mm[Hg] [facility] Height 2021-01-17 00:00:00 63 [in_i] [facility] BMI (Body Mass 2021-01-17 00:00:00 43 kg/m2 [facility] e Family Index) Practice BP Systolic 2021-01-17 00:00:00 156 mm[Hg] [facility] Body Weight 2021-01-17 00:00:00 243 [lb_av] [facility] Procedures This patient has no known [...] Department ID 2021-10-06 2021-10-06 Outpatient Heladio_Carter VFP [facility] [id number] 3-20 [facility] 05:55:00 05:55:00 [id number] Family Practic e 2021-10-06 2021-10-06 Outpatient Daniel_T VFP VFP [id number] [address] [place] [address] 05:55:00 05:55:00 [id number] Family Practic e 2021-09-30 2021-09-30 Outpatient Daniel_T VFP VFP [id number] 01:27:00 01:27:00 [id number] Family Practic e 2021-09-29 2021-09-29 Outpatient Daniel_T VFP VFP [id number] [address] [place] [address] 11:09:00 11:09:00 [id number] Family Practic e 2021-09-29 2021-09-29 Constantino VFP [place] - [id number] [facility] 00:00:00 00:00:00 [facility] Family Leija, Batsheva - Jenaro del rio MD: [id number] VM_HOU_Shad e Shadow [facility], [address], [place] [address] , Ph. 2021-09-24 2021-09-26 Inpatient [place] [id number] [address] [place] [address] 00:00:00 00:00:[address] ANDER [address] 2021-09-25 2021-09-25 Outpatient Daniel_T VFP VFP [id number] [address] [place] [address] 08:26:00 08:26:00 [id number] Family Practic e 2021-09-25 2021-09-25 Outpatient Daniel_T VFP VFP [id number] [address] [place] [address] 08:26:00 08:26:00 [id number] Family Practic e 2021-08-05 2021-08-05 Cam Bills [facility] [id number] Univers 00:00:00 00:00:00 Only Jodi J SPECIALTY [id number] ity [facility] [id number] [facility] [id number] [facility] 314 Branch 2021-04-06 2021-04-06 Outpatient Daniel_T VFP VFP [id number] [address] [place] [address] 02:39:00 02:39:00 [id number] Family Practic e 2021-04-06 2021-04-06 Outpatient Daniel_T VFP VFP [id number] [address] [place] [address] 02:39:00 02:39:00 [id number] Family Practic e 2021-03-17 2021-03-17 Outpatient Daniel_T VFP VFP [id number] [address] [place] [address] 07:11:00 07:11:00 [id number] Family Practic e 2021-03-16 2021-03-16 Outpatient Daniel_T VFP VFP [id number] [address] [place] [address] 03:56:00 03:56:00 [id number] Family Practic e 2021-03-16 2021-03-16 Constantino VFP [place] - [id number] [facility] 00:00:00 00:00:00 [facility] Family LeijaBatsheva MD: [id number] Avani mcmanus Shadow ow [facility], [facility] [address], [place] [address] , Ph. 2021-02-05 2021-02-05 Outpatient Daniel_T VFP VFP [id number] [address] [place] [address] 01:36:00 01:36:00 [id number] Family Practic e 2021-02-05 2021-02-05 Outpatient Daniel_T VFP VFP [id number] [address] [place] [address] 01:36:00 01:36:00 [id number] Family Practic e 2021-02-05 2021-02-05 Outpatient Daniel_T VFP VFP [id number] [address] [place] [address] 01:36:00 01:36:00 [id number] Family Practic e 2021-01-20 2021-01-20 Outpatient Daniel_T VFP VFP [id number] [address] [place] [address] 05:38:00 05:38:00 [id number] Family Practic e 2021-01-17 2021-01-17 Outpatient Daniel_T VFP VFP [id number] [address] [place] [address] 03:56:00 03:56:00 [id number] Family Practic e 2021-01-17 2021-01-17 Constantino VFP [place] - [id number] V [facility] 00:00:00 00:00:00 [facility] Family LeijaBatsheva MD: [id number] Avani mcmanus Shadow ow [facility], [address], [place] [address] , Ph. 2021-01-04 2021-01-04 Outpatient Daniel_T VFP VFP [id number] 10-09 [facility] 05:34:00 05:34:00 [id number] Family Practic e 2020-12-08 2020-12-08 Outpatient Andiel_T VFP VFP [id number] 10-09 [facility] 12:23:00 12:23:00 [id number] Family Practic e 2020-04-02 2020-04-02 Outpatient andiel_t VFP VFP [id number] 10-09 [facility] 12:23:00 12:23:00 [id number] Family Practic e Results Test Description Test Time Test Comments Results Result Comments Source Glucose [Mass/volume] in Capillary blood 2021-09-29 10:39:34 Test Item Value Reference Range Interpretation Comme nts Blood Glucose: mg/dl (test code = Blood Glucose: mg/dl) [address] [facility] measurement device [id number] 10:39:20 Test Item Value Reference Range Interpretation Comments Hemoglobin A1C Fingerstick: (test code 13.3 = Hemoglobin A1C Fingerstick:) [facility] RNA [Presence] in Respiratory specimen by SYLVIE with probe [id number] 07:56:28 Test Item Value Reference Range Interpretation Comments SARS coronavirus RNA [Presence] Not detected in Isolate by SYLVIE with probe detection (test code = 33628-4) Whether patient is employed in a Unknown healthcare setting (test code = 08695-1) Whether the patient has symptoms Unknown related to condition of interest (test code = 50009-0) Whether the patient was Unknown hospitalized for condition of interest (test code = 82592-0) Whether the patient was admitted Unknown to intensive care unit (ICU) for condition of interest (test code = 51606-4) Whether patient resides in a Unknown congregate care setting (test code = 95681-5) status (test code = Unknown 22949-2) Date and time of symptom onset Unknown (test code = 92036-8) SARS-CoV-2 (COVID-19) RNA [Presence] in Respiratory specimen by SYLVIE with probe [id number] 07:56:28 Test Item Value Reference Range Interpretation Comments SARS-CoV-2 (COVID-19) RNA Not detected [Presence] in Respiratory specimen by SYLVIE with probe detection (test code = 84590-8) Whether patient is employed in a Unknown healthcare setting (test code = 44408-9) Whether the patient has symptoms Unknown related to condition of interest (test code = 26669-0) Whether the patient was Unknown hospitalized for condition of interest (test code = 79857-6) Whether the patient was admitted Unknown to intensive care unit (ICU) for condition of interest (test code = 55952-9) Whether patient resides in a Unknown congregate care setting (test code = 90116-3) status (test code = Unknown 37981-7) Date and time of symptom onset Unknown (test code = 67788-7) Glucose [Mass/volume] in Capillary [id number] 13:51:00 Test Item Value Reference Range Interpretation Comments Blood Glucose: mg/dl (test code = Blood 211 Glucose: mg/dl) [facility]
[2021-12-21] MEDS ORDERED: ONDANSETRON 4 MG/2 ML VIAL ONE (13:36)
[2021-12-21 13:46] LABS: Absolute Lymphocytes (CBC) 1.3 K/uL (0.7-4.9); Lymphocytes % 10.4 % (15.3-44.8); MPV 8.7 fL (7.6-11.3); RBC Red Blood Cell Count 3.99 M/uL (3.86-4.86)
--- NOTE | 2021-12-21 13:55 | RAD REPORT ---
EXAM DESCRIPTION: RAD - Chest Single View - 12/21/2021 1:44 pm CLINICAL HISTORY: COUGH COMPARISON: Chest Single View dated 12/03/2021; Chest Single View dated 11/25/2021; Chest Pa And Lat (2 Views) dated 06/27/2021; Chest Single View dated 06/25/2021 FINDINGS: Lines: None. Lungs: Developing hazy basilar airspace disease. Pleural: No significant pleural effusions or pneumothorax. Cardiac: The heart size is within normal limits. Bones: No acute fractures. Other: IMPRESSION: Developing hazy basilar opacities could represent edema or pneumonia.
[2021-12-21 14:11] LABS: ALT/SGPT 19 U/L (12-78); AST/SGOT 19 U/L (15-37); Albumin 1.8 g/dL (3.4-5.0); Alkaline Phosphatase 65 U/L (45-117); BUN Blood Urea Nitrogen 22 mg/dL (7-18); Bicarbonate 26 mmol/L (21-32); Bilirubin Direct < 0.1 mg/dL (0-0.2); Bilirubin Total 0.4 mg/dL (0.2-1.0); Glomerular Filtration Rate 21 ml/min (=/>90); Glucose Level 369 mg/dL (74-106); Magnesium 1.6 mg/dL (1.8-2.4); NT PRO-BNP 4061 pg/mL (<125); Potassium 3.4 mmol/L (3.5-5.1); Protein, Total 5.6 g/dL (6.4-8.2); Sodium Level 136 mmol/L (136-145); Troponin High Sensitivity 16.6 pg/mL (<58.9)
[2021-12-21] MEDS ORDERED: HYDROCODONE/CHLORPHEN 5 ML/OSYR ONE (14:12)
[2021-12-21] MEDS ORDERED: INSULIN -REGULAR HUMAN 50 UNIT/0.5 ML ML ONE (14:58)
[2021-12-21] MEDS ORDERED: POTASSIUM 25 MEQ EFFERV TAB ONE (14:59)
[2021-12-21] MEDS ORDERED: MAGNESIUM OXIDE 400 MG TAB ONE (16:16)
[2021-12-21] MEDS ORDERED: FUROSEMIDE 20 MG/ 2ML VIAL ONE (16:16)
[2021-12-21] MEDS ORDERED: FUROSEMIDE 40 MG/4 ML VIAL ONE (16:18)
--- NOTE | 2021-12-21 16:27 | ER ---
Nurse's Notes [facility] Name: Mariaa Peguero Age: 51 yrs Sex: Female : 1970 Arrival Date: 12/21/2021 Time: 12:13 Bed 10 Private MD: Jamison Dong C Diagnosis: Influenza due to other identified influenza virus with other respiratory manifestations;Combined systolic (congestive) and diastolic (congestive) heart failure;Diabetes mellitus due to underlying condition with hyperglycemia;Chronic kidney disease, unspecified Presentation: 12/21 12:18 Chief complaint: Patient states: Dizzy, fatigue, chills X 4 days. Coronavirus screen: ld1 Client presents with at least one sign or symptom that may indicate coronavirus-19. Standard/surgical mask placed on the client. Ebola Screen: No symptoms or risks identified at this time. Initial Sepsis Screen: Does the patient meet any 2 criteria? No. Patient's initial sepsis screen is negative. Does the patient have a suspected source of infection? No. Patient's initial sepsis screen is negative. Risk Assessment: Do you want to hurt yourself or someone else? Patient reports no desire to harm self or others. Onset of symptoms was December 21, 2021. 12:18 Method Of Arrival: Wheelchair ld1 12:18 Acuity: SARA 3 ld1 Triage Assessment: 12:19 General: Appears in no apparent distress. comfortable, Behavior is calm, cooperative, ld1 appropriate for age. Pain: Denies pain. EENT: No signs and/or symptoms were reported regarding the EENT system. Reports. Neuro: Level of Consciousness is awake, alert, obeys commands, Oriented to person, place, time, situation. Cardiovascular: Capillary refill < 3 seconds Patient's skin is warm and dry. Respiratory: Airway is patent Respiratory effort is even, unlabored. GI: Abdomen is round non-distended. Historical: - Allergies: 12:19 PENICILLINS; ld1 - PMHx: 12:19 diabetes mellitus; Hypercholesterolemia; Hypertension; ld1 - PSHx: 12:19 ; Liver; ld1 - Immunization history:: Adult Immunizations up to date, Client reports receiving the 2nd dose of the Covid vaccine. - Social history:: Smoking status: Patient denies any tobacco usage or history of. Patient/guardian denies using alcohol. Screenin:21 Abuse screen: Denies threats or abuse. Denies injuries from another. Nutritional ss screening: No deficits noted. Tuberculosis screening: Never had TB. Fall Risk None identified. Assessment: 18:21 General: Appears in no apparent distress. comfortable, well groomed, well developed, ss well nourished. Pain: Denies pain. Neuro: Level of Consciousness is awake, alert, obeys commands, Oriented to person, place, time, situation. Cardiovascular: Capillary refill < 3 seconds is brisk in bilateral fingers. Respiratory: Airway is patent Respiratory effort is even, unlabored, Respiratory pattern is regular, symmetrical. EENT: Oral mucosa is moist. Derm: Skin is intact, is healthy with good turgor, Skin is dry, Skin is pink, warm \\T\\ dry. normal. Vital Signs: 12:18 BP 119 / 67; Pulse 103; Resp 18; Temp 98.6(TE); Pulse Ox 94% on R/A; Weight 104.33 kg; ld1 Height 5 ft. 3 in. (160.02 cm); Pain 0/10; 12:18 Body Mass Index 40.74 (104.33 kg, 160.02 cm) ld1 ED Course: 12:13 Patient arrived in ED. am2 12:13 Jamison Dong MD is Private Physician. am2 12:19 Triage completed. ld1 12:19 Arm band placed on right wrist. ld1 12:27 [facility] Youngblood [facility]. cp 12:27 Jamel Guo MD is Attending Physician. cp 13:36 Strep Sent. [facility] 13:36 COVID-19 SARS RT PCR (Document "Date of Onset" if Symptomatic) Sent. [facility] 13:36 Basic Metabolic Panel Sent. 5 13:36 CBC with Diff Sent. 5 13:36 LFT's Sent. [facility] 13:36 Magnesium Sent. [facility] 13:36 NT PRO-BNP Sent. [facility] 13:37 Patient has correct armband on for positive identification. Bed in low position. Call [facility] light in reach. Side rails up X2. Adult w/ patient. Warm blanket given. Client placed on continuous cardiac and pulse oximetry monitoring. NIBP monitoring applied. 13:37 Troponin HS Sent. [facility] 13:37 Initial lab(s) drawn, by me, sent to lab. Inserted saline lock: 22 gauge in right mh5 antecubital area, using aseptic technique. Blood collected. 13:46 XRAY Chest (1 view) In Process Unspecified. EDMS 13:56 Apryl Arias, EYAL is Primary Nurse. ss 16:51 No provider procedures requiring assistance completed. IV discontinued, intact, ss bleeding controlled, No redness/swelling at site. Pressure dressing applied. Administered Medications: 13:45 Drug: Zofran (Ondansetron) 4 mg Route: IVP; Site: right antecubital; ss 15:03 Follow up: Response: No adverse reaction ss 14:08 Drug: Tussionex Pennkinetic ER (chlorpheniramine-hydrocodone) Suspension 5 ml Route: PO;ss 16:20 Follow up: Response: No adverse reaction ss 14:43 CANCELLED (Physician Discretion): Potassium Chloride 20 mEq IV at calculated rate once; cp administer over 1-2 hours 15:03 Drug: Potassium Effervescent Tablet 50 mEq Route: PO; ss 16:08 Follow up: Response: No adverse reaction ss 15:04 Not Given (Other Intervention Used): Insulin Regular Human 10 units IVP once ss 15:04 Drug: Insulin Regular Human 10 units {Co-Signature: aa5 (Jojo Dooley RN).} Route: ss Sub-Q; Site: right upper arm; 16:08 Follow up: Response: No adverse reaction; Blood sugar is lowered ss 16:11 Not Given (Physician Discretion): Lasix (furosemide) 20 mg IVP once; give over 2 minutescp 16:20 Drug: Magnesium Oxide 800 mg Route: PO; ss 16:49 Follow up: Response: No adverse reaction; Medication administered at discharge. ss 16:20 Drug: Lasix (furosemide) 40 mg Route: IVP; Site: right antecubital; ss 16:49 Follow up: Response: No adverse reaction; Medication administered at discharge. ss Medication: 18:21 VIS not applicable for this client. ss Outcome: 16:26 Discharge ordered by . cp 16:51 Discharged to home ambulatory, with significant other. ss 16:51 Condition: good 16:51 Discharge instructions given to patient, significant other, Instructed on discharge instructions, follow up and referral plans. medication usage, Demonstrated understanding of instructions, follow-up care, medications, Prescriptions given X 3. 16:51 Patient left the ED. ss Signatures: Dispatcher [employer] EDMS Apryl Arias RN RN ss Honorio Youngblood PA PA cp Martinez, Maria 5 Maria De Jesus [facility] Abigail Pittman RN RN ld1 Jojo Dooley RN aa5
--- NOTE | 2021-12-21 16:27 | EDPHYS ---
Physician Documentation [facility] Name: Mariaa Peguero Age: 51 yrs Sex: Female : 1970 Arrival Date: 12/21/2021 Time: 12:13 Bed 10 Private MD: Jamison Dong C ED Physician Jamel Guo HPI: 12/21 13:20 This 51 yrs old Black Female presents to ER via Wheelchair with complaints of cp dehydration. 13:20 The patient or guardian reports cough, that is intermittent, with productive sputum. cp Onset: The symptoms/episode began/occurred 4 day(s) ago. 13:20 Associated signs and symptoms: Pertinent positives: sore throat, vomiting, dizziness, cp body aches, Pertinent negatives: chest pain, diarrhea, fever. Severity of symptoms: in the emergency department the symptoms are unchanged despite home interventions. Historical: - Allergies: 12:19 PENICILLINS; ld1 - PMHx: 12:19 diabetes mellitus; Hypercholesterolemia; Hypertension; ld1 - PSHx: 12:19 ; Liver; ld1 - Immunization history:: Adult Immunizations up to date, Client reports receiving the 2nd dose of the Covid vaccine. - Social history:: Smoking status: Patient denies any tobacco usage or history of. Patient/guardian denies using alcohol. ROS: 13:25 Constitutional: Positive for body aches, chills, fatigue, poor PO intake, Negative for cp fever. 13:25 Eyes: Negative for injury, pain, redness, and discharge. cp 13:25 ENT: Positive for sore throat, Negative for drainage from ear(s), ear pain, difficulty cp swallowing, difficulty handling secretions. 13:25 Cardiovascular: Negative for chest pain, edema, palpitations. 13:25 Respiratory: Positive for cough, Negative for shortness of breath, wheezing. 13:25 Abdomen/GI: Positive for vomiting, Negative for abdominal pain, diarrhea, constipation. 13:25 : Negative for urinary symptoms. 13:25 Neuro: Positive for dizziness, Negative for altered mental status, loss of consciousness, syncope. 13:25 All other systems are negative. Exam: 13:30 Constitutional: The patient appears in no acute distress, alert, awake, cp non-diaphoretic, non-toxic, well developed, well nourished. 13:30 Head/Face: Normocephalic, atraumatic. cp 13:30 Eyes: Periorbital structures: appear normal, Pupils: equal, round, and reactive to light and accomodation, Extraocular movements: intact throughout, Conjunctiva: normal, no exudate, no injection, Sclera: no appreciated abnormality, Lids and lashes: appear normal, bilaterally. 13:30 ENT: External ear(s): are unremarkable, Ear canal(s): are normal, clear, TM's: dullness, bilaterally, Nose: is normal, Mouth: Lips: moist, Oral mucosa: moist, Posterior pharynx: Airway: no evidence of obstruction, patent, Tonsils: no enlargement, no exudate, erythema, that is mild, exudate, is not appreciated, Voice: is hoarse. 13:30 Neck: ROM/movement: is normal, is supple, without pain, no range of motions limitations, no meningismus. 13:30 Chest/axilla: Inspection: normal. 13:30 Cardiovascular: Rate: tachycardic, Rhythm: regular, Edema: is not appreciated, JVD: is not appreciated. 13:30 Respiratory: the patient does not display signs of respiratory distress, Respirations: normal, no use of accessory muscles, no retractions, labored breathing, is not present, Breath sounds: bronchial sounds, that are mild, are heard diffusely, decreased breath sounds, are not appreciated, wheezing: is not appreciated. 13:30 Abdomen/GI: Inspection: obese Bowel sounds: active, all quadrants, Palpation: abdomen is soft and non-tender, in all quadrants. 13:30 Back: pain, is absent, ROM is normal. 13:30 Neuro: Orientation: to person, place \\T\\ time. Mentation: is normal, Motor: moves all fours, strength is normal, Sensation: is normal, Gait: is steady. 14:05 ECG was reviewed by the Attending Physician. cp Vital Signs: 12:18 BP 119 / 67; Pulse 103; Resp 18; Temp 98.6(TE); Pulse Ox 94% on R/A; Weight 104.33 kg; ld1 Height 5 ft. 3 in. (160.02 cm); Pain 0/10; 12:18 Body Mass Index 40.74 (104.33 kg, 160.02 cm) ld1 MDM: 12:57 Patient medically screened. cp 14:00 Differential diagnosis: bronchitis, flu, URI, COVID-19, CHF, strep throat, pneumonia, cp sepsis. 16:25 Data reviewed: vital signs, nurses notes, lab test result(s), EKG, radiologic studies, cp plain films. 16:25 Test interpretation: by ED physician or midlevel provider: ECG, plain radiologic cp studies. Counseling: I had a detailed discussion with the patient and/or guardian regarding: the historical points, exam findings, and any diagnostic results supporting the discharge/admit diagnosis, lab results, radiology results, the need for outpatient follow up, an heeler, to return to the emergency department if symptoms worsen or persist or if there are any questions or concerns that arise at home. Response to treatment: the patient's symptoms have mildly improved after treatment, and as a result, I will discharge patient. ED course: VSS. Patient appears non-toxic and no signs of respiratory distress. Will discharge to home for continued monitoring. 12/21 13:14 Order name: Basic Metabolic Panel; Complete Time: 14:13 12/21 14:13 Interpretation: Normal except: K 3.4; GLUC 369; BUN 22; CRE 2.66; GFR 21; CA 8.1. 12/21 13:14 Order name: CBC with Diff; Complete Time: 14:13 12/21 16:02 Interpretation: Normal except: WBC 12.4; HGB 11.0; HCT 34.0; ZOIE% 80.5; LYM% 10.4; NEUT cp A 10.0. 12/21 13:14 Order name: LFT's; Complete Time: 14:13 12/21 16:02 Interpretation: TP 5.6; ALB 1.8; GLOB 3.8. 12/21 13:14 Order name: Magnesium; Complete Time: 14:13 12/21 13:14 Order name: NT PRO-BNP; Complete Time: 14:13 12/21 16:03 Interpretation: Abnormal: NT PRO-BNP 4061. 12/21 13:14 Order name: Troponin HS; Complete Time: 14:13 12/21 13:14 Order name: XRAY Chest (1 view); Complete Time: 14:13 12/21 13:14 Order name: Influenza Screen (a \\T\\ B); Complete Time: 16:00 12/21 16:01 Interpretation: Normal except: FLUB FLU B ----- POSITIVE for FLU B protein antigen. 12/21 13:14 Order name: COVID-19 SARS RT PCR (Document "Date of Onset" if Symptomatic); Complete cp Time: 16:00 12/21 16:01 Interpretation: Reviewed. 12/21 13:14 Order name: Strep; Complete Time: 16:00 12/21 16:01 Interpretation: Reviewed. 12/21 14:46 Order name: Throat Culture EDTX 12/21 16:02 Order name: Glucose, Ancillary Testing; Complete Time: 16:03 EDTX 06 16:03 Interpretation: GLUC,ANCIL 347; Reviewed. 12/21 13:14 Order name: EKG; Complete Time: 13:15 12/21 13:14 Order name: Cardiac monitoring; Complete Time: 13:36 12/21 13:14 Order name: IV Saline Lock; Complete Time: 13:36 12/21 13:14 Order name: Labs collected and sent; Complete Time: 13:36 12/21 13:14 Order name: O2 Per Protocol; Complete Time: 13:36 12/21 13:14 Order name: O2 Sat Monitoring; Complete Time: 13:36 cp EC:05 Rate is 98 beats/min. Rhythm is regular. LA interval is shortened at 110 msec. QRS cp interval is normal. QT interval is prolonged at 378 msec. T waves are Inverted in leads I, aVL. Interpreted by me. Reviewed by me. Administered Medications: 13:45 Drug: Zofran (Ondansetron) 4 mg Route: IVP; Site: right antecubital; ss 15:03 Follow up: Response: No adverse reaction ss 14:08 Drug: Tussionex Pennkinetic ER (chlorpheniramine-hydrocodone) Suspension 5 ml Route: PO;ss 16:20 Follow up: Response: No adverse reaction ss 14:43 CANCELLED (Physician Discretion): Potassium Chloride 20 mEq IV at calculated rate once; cp administer over 1-2 hours 15:03 Drug: Potassium Effervescent Tablet 50 mEq Route: PO; ss 16:08 Follow up: Response: No adverse reaction ss 15:04 Not Given (Other Intervention Used): Insulin Regular Human 10 units IVP once ss 15:04 Drug: Insulin Regular Human 10 units {Co-Signature: aa5 (Jojo Dooley RN).} Route: ss Sub-Q; Site: right upper arm; 16:08 Follow up: Response: No adverse reaction; Blood sugar is lowered ss 16:11 Not Given (Physician Discretion): Lasix (furosemide) 20 mg IVP once; give over 2 minutescp 16:20 Drug: Magnesium Oxide 800 mg Route: PO; ss 16:49 Follow up: Response: No adverse reaction; Medication administered at discharge. ss 16:20 Drug: Lasix (furosemide) 40 mg Route: IVP; Site: right antecubital; ss 16:49 Follow up: Response: No adverse reaction; Medication administered at discharge. ss Disposition: 18:42 Co-signature as Attending Physician, Jamel Guo MD I agree with the assessment and kdr plan of care. Disposition Summary: 12/21/21 16:26 Discharge Ordered Location: Home cp Problem: new cp Symptoms: have improved cp Condition: Stable cp Diagnosis - Influenza due to other identified influenza virus with other respiratory cp manifestations - Combined systolic (congestive) and diastolic (congestive) heart failure cp - Diabetes mellitus due to underlying condition with hyperglycemia cp - Chronic kidney disease, unspecified cp Followup: cp - With: Private Physician - When: 2 - 3 days - Reason: Worsening of condition Discharge Instructions: - Discharge Summary Sheet cp - Influenza, Adult cp - Blood Glucose Monitoring, Adult cp - Diabetes Mellitus and Nutrition, Adult cp Forms: - Medication Reconciliation Form cp - Thank You Letter cp - Antibiotic Education cp - Prescription Opioid Use cp Prescriptions: - Bromfed DM 2-30-10 mg/5 mL Oral syrup - take 10 milliliter by ORAL route every 6 hours; 200 milliliter; Refills: 0, cp Product Selection Permitted - Zithromax Z-Roe 250 mg Oral Tablet - take 1 tablet by ORAL route as directed for 5 days Day 1 - take two (2) tablets cp one time. Day 2, 3, 4 , 5 take one (1) tablet once daily.; 6 tablet; Refills: 0, Product Selection Permitted - Tamiflu 75 mg Oral Capsule - take 1 tablet by ORAL route every 12 hours for 5 days; 10 tablet; Refills: 0, cp Product Selection Permitted Signatures: Dis[facility] Jamel Guo MD MD kdr Smirch, Shelby, RN RN ss Honorio Youngblood PA PA cp Abigail Pittman RN RN ld1 Jojo Dooley RN aa5 Corrections: (The following items were deleted from the chart) 14:43 14:19 Potassium Chloride 20 mEq IV at calculated rate once; administer over 1-2 hours cp ordered. cp 16:50 13:14 Urine Test ordered. cp 12/22 16:36 06 13:25 Constitutional: Positive for body aches, poor PO intake, Negative for cp fever, cp
[2021-12-21 17:12] VITALS: BP 119/67; TEMP 98.6; O2SAT 94
--- NOTE | 2021-12-22 13:47 | EKG ---
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
== END 2021-12-21 16:51 | disposition home or self-care (01) ==
LOC: ER 11:59
DX: J10.1 Influenza due to other identified influenza virus with other respiratory manifestations (principal); E08.22 Diabetes mellitus due to underlying condition with diabetic chronic kidney disease; I13.0 Hypertensive heart and chronic kidney disease with heart failure and stage 1 through stage 4 chronic kidney disease, or unspecified chronic kidney disease; N18.9 Chronic kidney disease, unspecified; I50.40 Unspecified combined systolic (congestive) and diastolic (congestive) heart failure; E08.65 Diabetes mellitus due to underlying condition with hyperglycemia; Z20.822 Contact with and (suspected) exposure to COVID-19; Z88.0 Allergy status to penicillin
CPT/HCPCS: 93005; 87070; 85025; 80048; 36415; 83735; 82947; 80076; 87081; 84484; 83880; 87804 ×2; 71045; 96375; 96372; 96374; 99284; U0003; J1815; J1940; J2405

== ENCOUNTER 2023-04-11 16:16 | Emergency (ER) | payer OTHER ==
--- OUTSIDE RECORDS SUMMARY | 2023-04-11 16:21 | XMS REPORT | Continuity of Care Document ---
:1970 Author Organization [facility] t Address [address] [place] [address] [place] [id number] Care Team Providers Name Role Phone Pcp, Patient Does Not Have A Primary Care Physician +[id number] SARA SABILLON Attending Clinician Unavailable Elaine Attending Clinician Unavailable ANDER FIGUEREDO Attending Clinician Unavailable Jodi Bills MA Attending Clinician Unavailable Elaine Admitting Clinician Unavailable ANDER FIGUEREDO Admitting Clinician Unavailable Payers Payer Name Policy Type Policy Number Effective Date Expiration Date S albertina [employer] CHOICE POS [id number] 2020 00:00:00 II AET[employer] - CHOICE [id number] 2000 00:00:00 (POS II) Problems Condition Condition Condition Status Onset Resolution Last Treating Co mments Source Name Details Category Date Date Treatment Clinician Date Right foot Right Foot Problem Active [facility] drop Drop 1-06 Family 00:00: Practic 00 e Neuropathy Neuropathy Problem Active 2021-07 [facility] due to Due to 0-02 Family diabetes Diabetes 00:00: Practi c mellitus Mellitus 00 e Body mass Body Mass Problem Active Alec joshua index 30+ Index 30+ 7-29 Fami ly - obesity - Obesity 00:00: Prac tic 00 e Paresthesi Paresthesi Problem Active [facility] a a - Family 00:00: Practic 00 e Incontinen Incontinen Problem Active [facility] ce of ce of 02-17 Family feces Feces 00:00: Practic 00 e Hypokalemi Hypokalemi Problem Active [facility] a a 3-12 Family 00:00: Practic 00 e Anemia Anemia Problem Active [facility] 3-12 Family 00:00: Practic 00 e Muscle Muscle Problem Active [facility] weakness Weakness 3-12 Family 00:00: Practic 00 e History of History of Problem Active [facility] hypotensio Hypotensio 3-12 Fa benigno n n 00:00: Practic 00 e Acute Acute Problem Active [facility] nontraumat Nontraumat 3-12 Zoë pelaez ic kidney ic Kidney 00:00: Prac tic injury Injury 00 e Depressive Depressive Problem Active [facility] disorder Disorder 3-10 Family 00:00: Practic 00 e Acute Acute Disease Active [facility] kidney kidney 3-06 st injury injury 00:00: Hospita 00 l Weakness Weakness Disease Active [facility] di generalize generalize 3-05 st d d 00:00: Hospita 00 l Chronic Chronic Disease Active 2020-07 [facility] diastolic diastolic 2-17 ity of heart heart 00:00: [place] failure failure 00 Medical Branch Hypoalbumi Hypoalbumi Problem Active 2020-07 [facility] nemia nemia 0-10 Family 00:00: Practic 00 e Obstructiv Obstructiv Problem Active 2020-07 [facility] e sleep e Sleep 0-10 Family apnea Apnea 00:00: Practic syndrome Syndrome 00 e Localized Localized Disease Active 2020-07 Uni vers edema due edema due 0-02 ity of to fluid to fluid 00:00: [place] overload overload 00 Medica l Branch Body mass Body mass Disease Active 2020-07 Uni vers index index 0-02 ity of (BMI) (BMI) 00:00: [place] 45.0-49.9, 45.0-49.9, 00 Me dical adult adult Branch Benign Benign Disease Active 2020-07 [facility] hypertensi hypertensi 0-02 it y of on with on with 00:00: [place] chronic chronic 00 Medical kidney kidney Branch disease disease Hyperlipid Hyperlipid Disease Active 2020-07 U nivers emia, emia, 0-02 ity of unspecif[place] Nephrogeno Nephrogeno Disease Active 2020-07 U nivers us us 0-01 ity of proteinuri proteinuri [place] Stage 3a Stage 3a Disease Active 2020-07 Unive rs chronic chronic 0-01 ity of kidney kidney 00:00: [place] disease disease 00 Medical Branch 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 0-01 ity of mellitus mellitus 00:00: [place] with with 00 Medical diabetic diabetic Branch polyneurop polyneurop athy athy Hypoalbumi Hypoalbumi Disease Active 2020-07 U nivers nembill nemia 0-01 ity of 00:00: [place] 00 Medical Branch Chronic Chronic Problem Active [place] kidney Kidney 8-25 Family disease Disease 00:00: Practic stage 3 Stage 3 00 e Dyspnea on Dyspnea on Problem Active [facility] exertion Exertion 8-25 Family 00:00: Practic 00 e Proteinuri Proteinuri Problem Active [facility] a a 8-25 Family 00:00: Practic 00 e Foot Foot Problem Active [facility] callus Callus 6-28 Family 00:00: Practic 00 e Tinea Tinea Problem Active [facility] pedis Pedis 6-28 Family 00:00: Practic 00 e Long-term Long-term Problem Active Alec lewis current Current 6-28 Family use of Use of 00:00: Practic insulin Insulin 00 e Type 2 Type 2 Problem Active [facility] diabetes Diabetes 6-28 Family mellitus Mellitus 00:00: Practi c 00 e Morbid Morbid Problem Active [facility] obesity Obesity 6-28 Family 00:00: Practic 00 e Macular Macular Problem Active [facility] edema and Edema and 9-13 Fami [...] 00 e Clinical Clinical Problem Active Eduardo ge finding Finding 1-10 Family 00:00: Practic 00 e 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 type 2 Type 2 diabetes Diabetes mellitus Mellitus Hypertensi Hypertensi Problem Active [facility] ve ve 613 Family disorder Disorder 00:00: Practi c 00 e Clinical Clinical Problem Active Eduardo ge finding Finding 6 Family 00:00: Practic 00 e Obesity Obesity Disease Active Overview: [facility] ers 4-15 Formattin ity of 00:00: g of this [place] 00 note Medical might be Branch different [...] disease Gastroesop Gastroesop Disease Active Overview : [facility] 4-15 Formattin ity of reflux reflux [...] Type Date Date Clinician Penicill Propensi Active Anaphylaxis M ethodi ins ty to 09-24 st adverse 00:00: Hospita reaction 00 l s to drug Penicill Propensi Active Dizziness Uni vers ins ty to 5-24 ity of adverse 00:00: [place] reaction 00 Medical s Branch PENICILL Allergy Active Fatal Anaphylaxis [facility] IN G to Family BENETHAM substanc Practi c INE e e PENICILL Allergy Active Anaphylaxis [facility] IN G to Family BENZATHI substanc Practi c NE e e Social History Social Habit Start Date Stop Date Quantity Comments Source [facility] History of Social 2021-09-25 2021-09-25 [facility] function 00:00:00 00:00:00 Sex Ass[birth year] Met [facility] 00:00:00 00:00:00 Smoking Status Start Date Stop Date Source Never Smoker [place] Family P james Tobacco smoking consumption unknown [facility] Medications Ordered Filled Start Stop Current Ordering Indication Dosage Frequency Signature Comments Components Source Medication Medication Date Date Medication? Clinician (SIG) Name Name metoprolol Yes 100mg Q.5D Take 100 Me thodi tartrate 3-[address] (LOPRESSOR) 14:56: mouth in Ho spita 100 mg 04 the l tablet morning and 100 mg before bedtime. amLODIPine Yes 5mg Q.5D Take 5 mg Me thodi (NORVASC) 5 3-[address] mg tablet 14:56: in the Hospit a 04 morning l and 5 mg before bedtime. insulin Yes 40U Q.5D Inject 40 Metho di lispro 3-[address] (HUMALOG 14:56: under the [facility] [place] U-100 04 skin 2 l INSULIN (two) SUBQ) times a day before meals. atorvastati Yes 20mg QD Take 20 mg [facility] (LIPITOR) 3-[address] 20 mg 14:56: in the Hospita tablet 04 morning. l Default OP ins. hydrALAZINE Yes 50mg [id number] Take 50 mg [facility] (APRESOLINE 3-[id number] mouth [address] ) 50 MG 14:56: 3D in the Hospita tablet 04 morning l and 50 mg at noon and 50 mg before bedtime. amLODIPine 0 Yes 5mg Take 5 mg Un lidia 5 mg tablet 1-14 by mouth. ity of 07:22: [address] Branch dulaglutide Yes inject Univ ers (TRULICITY) 1-14 under the ity of 0.75 mg/0.5 07:22: skin. [facility] PnIj 13 Medical Branch furosemide 2020-07- No 40mg Take 40 mg Univers 40 mg 09-0919 by mouth. ity of tablet 00:00: 05:59 [place] 00 :00 Medical Branch ramipriL 10 2020-07- No 10mg Take 10 mg Univers mg capsule 09-0818 by mouth. ity of 00:00: 05:59 [place] 00 :00 Medical Branch hydrALAZINE 0 Yes 50mg Take 50 mg Univers 50 mg 9-13 by mouth. ity of tablet 00:00: [place] Medical [facility] metoprolol 0 Yes 100mg Take 100 Un lidia tartrate 9-13 mg by ity of 100 mg 00:00: mouth. [place] tablet 00 Medical Branch albuterol albuterol No [...] SHORTNESS OF BREATH amlodipine amlodipine No amlodipine [facility] 5 mg tablet 5 mg tablet 5 mg F amily tablet Practic e atorvastati atorvastati No atorvastat [facility] n 80 mg n 80 mg in 80 mg Famil y tablet TAKE tablet TAKE tablet Practic 1 TABLET BY 1 TABLET BY TAKE 1 e MOUTH MOUTH TABLET BY EVERYDAY AT EVERYDAY AT MOUTH BEDTIME BEDTIME EVERYDAY AT BEDTIME BD BD No BD [place] Ultra-Fine Ultra-Fine Ultra-Fine Family Mini Pen Mini Pen Mini Pen Pra ctic Needle 31 Needle 31 Needle 31 e gauge x gauge x gauge x 3/16" USE 3/16" USE 3/16" USE DIRECTED DIRECTED 2 TIMES 2 TIMES DIRECTED 2 DAILY 30 DAILY 30 TIMES DAILY 30 bupropion bupropion No bupropion [facility] HCl XL 150 HCl XL 150 HCl XL 150 Family mg 24 hr mg 24 hr mg 24 hr Pra ctic tablet, tablet, tablet, e extended extended extended release release release TAKE 1 TAKE 1 TAKE 1 TABLET BY TABLET BY TABLET BY MOUTH EVERY MOUTH EVERY MOUTH DAY FOR 30 DAY FOR 30 EVERY DAY DAYS DAYS FOR 30 DAYS carvedilol carvedilol No carvedilol [place] 25 mg 25 mg 25 mg Family tablet TAKE tablet TAKE tablet Practic 1 TABLET 1 TABLET TAKE 1 e (25 MG (25 MG TABLET (25 TOTAL) BY TOTAL) BY MG TOTAL) MOUTH IN MOUTH IN BY MOUTH THE MORNING THE MORNING IN THE AND 1 AND 1 MORNING TABLET (25 TABLET (25 AND 1 MG TOTAL) MG TOTAL) TABLET (25 IN THE IN THE MG TOTAL) EVENING. EVENING. IN THE EVENING. Conorxibilly 10 Conorxibilly 10 No Conorxibilly 10 Village mg tablet mg tablet mg tablet Family TAKE 1 TAKE 1 TAKE 1 Practic TABLET BY TABLET BY TABLET BY e MOUTH EVERY MOUTH EVERY MOUTH DAY IN THE DAY IN THE EVERY DAY MORNING MORNING IN THE MORNING FreeStyle FreeStyle No FreeStyle Jaci Papi 2 Papi 2 Papi 2 Family Sensor kit Sensor kit Sensor kit Practic USE USE USE e DIRECTED DIRECTED DIRECTED DAILY BUT DAILY BUT DAILY BUT CHANGE CHANGE CHANGE EVERY 14 EVERY 14 EVERY 14 DAYS. DAYS. DAYS. furosemide furosemide No furosemide [facility] 40 mg 40 mg 40 mg Family tablet TAKE tablet TAKE tablet Practic 2 TABLETS 2 TABLETS TAKE 2 e BY MOUTH BY MOUTH TABLETS BY TWICE A DAY TWICE A DAY MOUTH TWICE A DAY gabapentin gabapentin No gabapentin [facility] 100 mg 100 mg 100 mg Family capsule capsule capsule Practi c TAKE 1 TAKE 1 TAKE 1 e CAPSULE BY CAPSULE BY CAPSULE BY MOUTH TWICE MOUTH TWICE MOUTH A DAY A DAY TWICE A DAY Humalog Humalog No Humalog Vill[place] e KwikPen KwikPen KwikPen Family U-200 U-200 U-200 Practic Insulin 200 Insulin 200 Insulin e unit/mL (3 unit/mL (3 200 mL) mL) unit/mL (3 subcutaneou subcutaneou mL) s Give for s Give for subcutaneo glucose glucose us Give >200 before >200 before for B&L using B&L using glucose CF 1:20: CF 1:20: >200 TDD 50 TDD 50 before B&L using CF 1:20: TDD 50 Humalog Mix Humalog Mix No Humalog [facility] 75-25 75-25 Mix 75-25 Family KwikPen KwikPen KwikPen Practi c U-100 U-100 U-100 e insulin 100 insulin 100 insulin unit/mL unit/mL 100 subcutaneou subcutaneou unit/mL s pen GIve s pen GIve subcutaneo 30 units 30 units us pen before before GIve 30 breakfast breakfast units and dinner and dinner before and and breakfast increase as increase as and dinner directed: directed: and TDD 150 TDD 150 increase as directed: TDD 150 Humulin R Humulin R No Humulin R [facility] U-500 U-500 U-500 Family (Conc) (Conc) (Conc) Practic Insulin Insulin Insulin e Kwikpen 500 Kwikpen 500 Kwikpen unit/mL (3 unit/mL (3 500 mL) mL) unit/mL (3 subcutaneou subcutaneou mL) s PLEASE s PLEASE subcutaneo SEE SEE us PLEASE ATTACHED ATTACHED SEE FOR FOR ATTACHED DETAILED DETAILED FOR DIRECTIONS DIRECTIONS DETAILED DIRECTIONS hydralazine hydralazine No hydralazin [facility] 50 mg 50 mg e 50 mg Family tablet TAKE tablet TAKE tablet Practic 1 & 1/2 1 & 1/2 TAKE 1 & e TABLET BY TABLET BY 1/2 TABLET MOUTH THREE MOUTH THREE BY MOUTH TIMES A DAY TIMES A DAY THREE TIMES A DAY metoclopram metoclopram No metoclopra [facility] juan antonio 10 mg juan antonio 10 mg mide 10 mg Family tablet TAKE tablet TAKE tablet Practic 3 TABLETS 3 TABLETS TAKE 3 e BY MOUTH BY MOUTH TABLETS BY DIRECTED DIRECTED MOUTH USE USE DIRECTED DIRECTED DIRECTED USE PER YOUR PER YOUR DIRECTED COLONOSCOPY COLONOSCOPY PER YOUR PREP PACKET PREP PACKET COLONOSCOP Y PREP PACKET metoprolol metoprolol No [facility] tartrate tartrate tartrate Fam livan 100 mg 100 mg 100 mg Practic tablet TAKE tablet TAKE tablet e 1 TABLET BY 1 TABLET BY TAKE 1 MOUTH TWICE MOUTH TWICE TABLET BY A DAY A DAY MOUTH TWICE A DAY [facility] tartrate 50 tartrate 50 tartrate Family [...] route. OneTouch OneTouch No 1strip( TID OneTouch [place] Verio test Verio test s) Verio test Family strips Take strips Take strips Practic 1 strip 3 1 strip 3 Take 1 e times a day times a day strip 3 by miscell. by miscell. times a route. route. day by miscell. route. oseltamivir oseltamivir No oseltamivi [facility] 75 mg 75 mg r 75 mg Family capsule capsule capsule Practi c TAKE 1 TAKE 1 TAKE 1 e CAPSULE BY CAPSULE BY CAPSULE BY MOUTH EVERY MOUTH EVERY MOUTH 12 HOURS 12 HOURS EVERY 12 FOR 5 DAYS FOR 5 DAYS HOURS FOR 5 DAYS ramipril 10 ramipril 10 No ramipril [place] mg capsule mg capsule 10 mg Fa benigno TAKE 1 TAKE 1 capsule Practic CAPSULE BY CAPSULE BY TAKE 1 e MOUTH EVERY MOUTH EVERY CAPSULE BY DAY DAY MOUTH EVERY DAY spironolact spironolact No spironolac [place] one 25 mg one 25 mg tone 25 mg Family tablet TAKE tablet TAKE tablet Practic 1 TABLET BY 1 TABLET BY TAKE 1 e MOUTH 1 MOUTH 1 TABLET BY TIME EACH TIME EACH MOUTH 1 DAY. DAY. TIME EACH DAY. Sutab Sutab No Sutab [place] 1.479-0.188 1.479-0.188 1.479-0.18 Family -0.225 gram -0.225 gram 8-0.225 Practic tablet tablet gram e PLEASE SEE PLEASE SEE tablet ATTACHED ATTACHED PLEASE SEE FOR FOR ATTACHED DETAILED DETAILED FOR DIRECTIONS DIRECTIONS DETAILED DIRECTIONS Trulicity Trulicity No Trulicity [place] 1.5 mg/0.5 1.5 mg/0.5 1.5 mg/0.5 Family mL mL mL Practic subcutaneou subcutaneou subcutaneo e s pen s pen us pen injector injector injector INJECT 1.5 INJECT 1.5 INJECT 1.5 MG EVERY MG EVERY MG EVERY WEEK BY WEEK BY WEEK BY SUBCUTANEOU SUBCUTANEOU SUBCUTANEO S ROUTE S ROUTE US ROUTE DIRECTED DIRECTED FOR 30 FOR 30 DIRECTED DAYS. DAYS. FOR 30 DAYS. Trulicity 3 Trulicity 3 No 3mg Q1W Trulicity [place] mg/0.5 mL mg/0.5 mL 3 mg/0.5 F amily subcutaneou subcutaneou mL P ractic s pen s pen subcutaneo e injector injector us pen Inject 3 mg Inject 3 mg injector every week every week Inject 3 by by mg every subcutaneou subcutaneou week by s route for s route for subcutaneo 30 days. 30 days. us route for 30 days. albuterol albuterol No albuterol [place] sulfate HFA [...] 5 mg tablet 5 mg F amily tablet Practic e atorvastati atorvastati No atorvastat [facility] n 80 mg n 80 mg in 80 mg Famil y tablet TAKE tablet TAKE tablet Practic 1 TABLET BY 1 TABLET BY TAKE 1 e MOUTH MOUTH TABLET BY EVERYDAY AT EVERYDAY AT MOUTH BEDTIME BEDTIME EVERYDAY AT BEDTIME BD BD No BD [place] Ultra-Fine Ultra-Fine Ultra-Fine Family Mini Pen Mini Pen Mini Pen Pra ctic Needle 31 Needle 31 Needle 31 e gauge x gauge x gauge x 3/16" USE 316" USE 316" USE DIRECTED DIRECTED 2 TIMES 2 TIMES DIRECTED 2 DAILY 30 DAILY 30 TIMES DAILY 30 bupropion bupropion No bupropion [facility] HCl XL 150 HCl XL 150 HCl XL 150 Family mg 24 hr mg 24 hr mg 24 hr Pra ctic tablet, tablet, tablet, e extended extended extended release release release TAKE 1 TAKE 1 TAKE 1 TABLET BY TABLET BY TABLET BY MOUTH EVERY MOUTH EVERY MOUTH DAY FOR 30 DAY FOR 30 EVERY DAY DAYS DAYS FOR 30 DAYS carvedilol carvedilol No carvedilol [facility] 25 mg 25 mg 25 mg Family tablet TAKE tablet TAKE tablet Practic 1 TABLET 1 TABLET TAKE 1 e (25 MG (25 MG TABLET (25 TOTAL) BY TOTAL) BY MG TOTAL) MOUTH IN MOUTH IN BY MOUTH THE MORNING THE MORNING IN THE AND 1 AND 1 MORNING TABLET (25 TABLET (25 AND 1 MG TOTAL) MG TOTAL) TABLET (25 IN THE IN THE MG TOTAL) EVENING. EVENING. IN THE EVENING. Farxiga 10 Farxiga 10 No Farxiga 10 [facility] mg tablet mg tablet mg tablet Family TAKE 1 TAKE 1 TAKE 1 Practic TABLET BY TABLET BY TABLET BY e MOUTH EVERY MOUTH EVERY MOUTH DAY IN THE DAY IN THE EVERY DAY MORNING MORNING IN THE MORNING FreeStyle FreeStyle No FreeStyle [facility] Papi 2 Papi 2 Papi 2 Family Sensor kit Sensor kit Sensor kit Practic USE USE USE e DIRECTED DIRECTED DIRECTED DAILY BUT DAILY BUT DAILY BUT CHANGE CHANGE CHANGE EVERY 14 EVERY 14 EVERY 14 DAYS. DAYS. DAYS. furosemide furosemide No furosemide [facility] 40 mg 40 mg 40 mg Family tablet TAKE tablet TAKE tablet Practic 2 TABLETS 2 TABLETS TAKE 2 e BY MOUTH BY MOUTH TABLETS BY TWICE A DAY TWICE A DAY MOUTH TWICE A DAY gabapentin gabapentin No gabapentin [facility] 100 mg 100 mg 100 mg Family capsule capsule capsule Practi c TAKE 2 TAKE 2 TAKE 2 e CAPSULES BY CAPSULES BY CAPSULES MOUTH TWO MOUTH TWO BY MOUTH TIMES A TIMES A TWO TIMES DAY. DAY. A DAY. Humalog Humalog No Humalog [place] [facility] KwikPen KwikPen KwikPen Family U-200 U-200 U-200 Practic Insulin 200 Insulin 200 Insulin e unit/mL (3 unit/mL (3 200 mL) mL) unit/mL (3 subcutaneou subcutaneou mL) s Give for s Give for subcutaneo glucose glucose us Give >200 before >200 before for B&L using B&L using glucose CF 1:20: CF 1:20: >200 TDD 50 TDD 50 before B&L using CF 1:20: TDD 50 Humulin R Humulin R No Humulin R [facility] U-500 U-500 U-500 Family (Conc) (Conc) (Conc) Practic Insulin Insulin Insulin e Kwikpen 500 Kwikpen 500 Kwikpen unit/mL (3 unit/mL (3 500 mL) mL) unit/mL (3 subcutaneou subcutaneou mL) s PLEASE s PLEASE subcutaneo SEE SEE us PLEASE ATTACHED ATTACHED SEE FOR FOR ATTACHED DETAILED DETAILED FOR DIRECTIONS DIRECTIONS DETAILED DIRECTIONS hydralazine hydralazine No hydralazin [facility] 50 mg 50 mg e 50 mg Family tablet TAKE tablet TAKE tablet Practic 1 & 1/2 1 & 1/2 TAKE 1 & e TABLET BY TABLET BY 1/2 TABLET MOUTH THREE MOUTH THREE BY MOUTH TIMES A DAY TIMES A DAY THREE TIMES A DAY metoclopram metoclopram No metoclopra [facility] juan antonio 10 mg juan antonio 10 mg mide 10 mg Family tablet TAKE tablet TAKE tablet Practic 3 TABLETS 3 TABLETS TAKE 3 e BY MOUTH BY MOUTH TABLETS BY DIRECTED DIRECTED MOUTH USE USE DIRECTED DIRECTED DIRECTED USE PER YOUR PER YOUR DIRECTED COLONOSCOPY COLONOSCOPY PER YOUR PREP PACKET PREP PACKET COLONOSCOP Y PREP PACKET metoprolol metoprolol No metoprolol [facility] tartrate tartrate tartrate Fam livan 100 mg 100 mg 100 mg Practic tablet TAKE tablet TAKE tablet e 1 TABLET BY 1 TABLET BY TAKE 1 MOUTH TWICE MOUTH TWICE TABLET BY A DAY A DAY MOUTH TWICE A DAY metoprolol metoprolol metoprolol [facility] tartrate 50 tartrate 50 tartrate Family mg tablet mg tablet 50 mg Prac tic TAKE 1.5 TAKE 1.5 tablet e TABLET BY TABLET BY TAKE 1.5 MOUTH TWO MOUTH TWO TABLET BY TIMES A DAY TIMES A DAY MOUTH TWO TIMES A DAY Novolog Mix Novolog Mix No Novolog [facility] 70-30 70-30 Mix 70-30 Family FlexPen FlexPen FlexPen Practi c U-100 U-100 U-100 e Insulin 100 Insulin 100 Insulin unit/mL unit/mL 100 subcutaneou subcutaneou unit/mL s pen Give s pen Give subcutaneo 30 units 30 units us pen before before Give 30 breakfast breakfast units and dinner and dinner before and and breakfast increase as increase as and dinner directed: directed: and TDD 150 TDD 150 increase as directed: TDD 150 OneTouch OneTouch No 1each TID OneTouch [facility] Delica Delica Delica Family Lancets 30 Lancets 30 Lancets 30 Practic gauge Take gauge Take gauge Take e 1 each 3 1 each 3 1 each 3 times a day times a day times a by miscell. by miscell. day by route. route. miscell. route. OneTouch OneTouch No 1strip( TID [facility] Verio test Verio test s) Verio test Family strips Take strips Take strips Practic 1 strip 3 1 strip 3 Take 1 e times a day times a day strip 3 by miscell. by miscell. times a route. route. day by miscell. route. oseltamivir oseltamivir oseltamivi [facility] 75 mg 75 mg r 75 mg Family capsule capsule capsule Practi c TAKE 1 TAKE 1 TAKE 1 e CAPSULE BY CAPSULE BY CAPSULE BY MOUTH EVERY MOUTH EVERY MOUTH 12 HOURS 12 HOURS EVERY 12 FOR 5 DAYS FOR 5 DAYS HOURS FOR 5 DAYS ramipril 10 ramipril 10 ramipril [place] mg capsule mg capsule 10 mg Fa benigno TAKE 1 TAKE 1 capsule Practic CAPSULE BY CAPSULE BY TAKE 1 e MOUTH EVERY MOUTH EVERY CAPSULE BY DAY DAY MOUTH EVERY DAY spironolact spironolact spironolac [facility] one 25 mg one 25 mg tone 25 mg Family tablet TAKE tablet TAKE tablet Practic 1 TABLET BY 1 TABLET BY TAKE 1 e MOUTH 1 MOUTH 1 TABLET BY TIME EACH TIME EACH MOUTH 1 DAY. DAY. TIME EACH DAY. Sutab Sutab No Sutab [facility] 1.479-0.188 1.479-0.188 1.479-0.18 Family -0.225 gram -0.225 gram 8-0.225 Practic tablet tablet gram e PLEASE SEE PLEASE SEE tablet ATTACHED ATTACHED PLEASE SEE FOR FOR ATTACHED DETAILED DETAILED FOR DIRECTIONS DIRECTIONS DETAILED DIRECTIONS Brad Caraballo No Brad Beatty U-300 U-300 U-300 Family SoloStar SoloStar SoloStar Pra ctic 300 unit/mL 300 unit/mL 300 e (3 mL) (3 mL) unit/mL (3 subcutaneou subcutaneou mL) s insulin s insulin subcutaneo pen Give 14 pen Give 14 us insulin units in AM units in AM pen Give and and 14 units icnrease as icnrease as in AM and directed; directed; icnrease TDD 50 TDD 50 as directed; TDD 50 Trulicity Trulicity No Trulicity [place] 1.5 mg/0.5 1.5 mg/0.5 1.5 mg/0.5 Family mL mL mL Practic subcutaneou subcutaneou subcutaneo e s pen s pen us pen injector injector injector INJECT ONE INJECT ONE INJECT ONE (1) PEN (1) PEN (1) PEN (1.5MG) (1.5MG) (1.5MG) UNDER THE UNDER THE UNDER THE SKIN ONCE SKIN ONCE SKIN ONCE PER WEEK PER WEEK PER WEEK DIRECTED. DIRECTED. DIRECTED. Trulicity 3 Trulicity 3 No 3mg Q1W Trulicity [place] mg/0.5 mL mg/0.5 mL 3 mg/0.5 F amily subcutaneou subcutaneou mL P ractic s pen s pen subcutaneo e injector injector us pen Inject 3 mg Inject 3 mg injector every week every week Inject 3 by by mg every subcutaneou subcutaneou week by s route for s route for subcutaneo 30 days. 30 days. us route for 30 days. albuterol albuterol No albuterol [place] sulfate HFA [...] SHORTNESS OF BREATH amlodipine amlodipine No amlodipine [facility] 5 mg tablet 5 mg tablet 5 mg F amily tablet Practic e atorvastati atorvastati No atorvastat [facility] n 80 mg n 80 mg in 80 mg Famil y tablet TAKE tablet TAKE tablet Practic 1 TABLET BY 1 TABLET BY TAKE 1 e MOUTH MOUTH TABLET BY EVERYDAY AT EVERYDAY AT MOUTH BEDTIME BEDTIME EVERYDAY AT BEDTIME azithromyci azithromyci No azithromyc [facility] n 250 mg n 250 mg [...] x gauge x gauge x 3/16" USE 3/16" USE 3/16" USE DIRECTED DIRECTED 2 TIMES 2 TIMES DIRECTED 2 Daily Daily TIMES Daily bupropion bupropion No bupropion [facility] HCl XL 150 HCl XL 150 HCl XL 150 Family mg 24 hr mg 24 hr mg 24 hr Pra ctic tablet, tablet, tablet, e extended extended extended release release release TAKE 1 TAKE 1 TAKE 1 TABLET BY TABLET BY TABLET BY MOUTH EVERY MOUTH EVERY MOUTH DAY FOR 30 DAY FOR 30 EVERY DAY DAYS DAYS FOR 30 DAYS carvedilol carvedilol No carvedilol [facility] 25 mg 25 mg 25 mg Family tablet TAKE tablet TAKE tablet Practic 1 TABLET 1 TABLET TAKE 1 e (25 MG (25 MG TABLET (25 TOTAL) BY TOTAL) BY MG TOTAL) MOUTH IN MOUTH IN BY MOUTH THE MORNING THE MORNING IN THE AND 1 AND 1 MORNING TABLET (25 TABLET (25 AND 1 MG TOTAL) MG TOTAL) TABLET (25 IN THE IN THE MG TOTAL) EVENING. EVENING. IN THE EVENING. Farxiga 10 Farxiga 10 No Farxiga 10 [place] mg tablet mg tablet mg tablet Family TAKE 1 TAKE 1 TAKE 1 Practic TABLET BY TABLET BY TABLET BY e MOUTH EVERY MOUTH EVERY MOUTH DAY IN THE DAY IN THE EVERY DAY MORNING MORNING IN THE MORNING FreeStyle FreeStyle No FreeStyle [facility] Papi 2 Papi 2 Papi 2 Family Sensor kit Sensor kit Sensor kit Practic USE USE USE e DIRECTED DIRECTED DIRECTED DAILY BUT DAILY BUT DAILY BUT CHANGE CHANGE CHANGE EVERY 14 EVERY 14 EVERY 14 DAYS. DAYS. DAYS. FreeStyle FreeStyle No FreeStyle [facility] Papi 3 Papi 3 Papi 3 Family Sensor Sensor Sensor Practic device USE device USE device USE e DIRECTED DIRECTED DAILY BUT DAILY BUT DIRECTED CHANGE CHANGE DAILY BUT EVERY 14 EVERY 14 CHANGE DAYS DAYS EVERY 14 DAYS furosemide furosemide No furosemide [facility] 40 mg 40 mg 40 mg Family tablet TAKE tablet TAKE tablet Practic 2 TABLETS 2 TABLETS TAKE 2 e BY MOUTH BY MOUTH TABLETS BY TWICE A DAY TWICE A DAY MOUTH TWICE A DAY gabapentin gabapentin No gabapentin [facility] 100 mg 100 mg 100 mg Family capsule capsule capsule Practi c TAKE 2 TAKE 2 TAKE 2 e CAPSULES BY CAPSULES BY CAPSULES MOUTH TWO MOUTH TWO BY MOUTH TIMES A TIMES A TWO TIMES DAY. DAY. A DAY. hydralazine hydralazine No hydralazin [facility] 50 mg 50 mg e 50 mg Family tablet TAKE tablet TAKE tablet Practic 1 & 1/2 1 & 1/2 TAKE 1 & e TABLET BY TABLET BY 1/2 TABLET MOUTH THREE MOUTH THREE BY MOUTH TIMES A DAY TIMES A DAY THREE TIMES A DAY metoclopram metoclopram No metoclopra [facility] juan antonio 10 mg juan antonio 10 mg mide 10 mg Family tablet TAKE tablet TAKE tablet Practic 3 TABLETS 3 TABLETS TAKE 3 e BY MOUTH BY MOUTH TABLETS BY DIRECTED DIRECTED MOUTH USE USE DIRECTED DIRECTED DIRECTED USE PER YOUR PER YOUR DIRECTED COLONOSCOPY COLONOSCOPY PER YOUR PREP PACKET PREP PACKET COLONOSCOP Y PREP PACKET [facility]rol[facility]op[facility] tartrate Fam livan 100 mg 100 mg 100 mg Practic tablet TAKE tablet TAKE tablet e 1 TABLET BY 1 TABLET BY TAKE 1 MOUTH TWICE MOUTH TWICE TABLET BY A DAY A DAY MOUTH TWICE A DAY metoprolol metoprolol No [facility] tartrate 50 tartrate 50 tartrate Family mg tablet mg tablet 50 mg Prac tic TAKE 1.5 TAKE 1.5 tablet e TABLET BY TABLET BY TAKE 1.5 MOUTH TWO MOUTH TWO TABLET BY TIMES A DAY TIMES A DAY MOUTH TWO TIMES A DAY Novolog Mix Novolog Mix No Novolog [facility] 70-30 70-30 Mix 70-30 Family FlexPen FlexPen FlexPen Practi c U-100 U-100 U-100 e Insulin 100 Insulin 100 Insulin unit/mL unit/mL 100 subcutaneou subcutaneou unit/mL s pen Give s pen Give subcutaneo 30 units 30 units us pen before before Give 30 breakfast breakfast units and dinner and dinner before and and breakfast increase as increase as and dinner directed: directed: and TDD 150 TDD 150 increase as directed: TDD 150 OneTouch OneTouch No 1each TID OneTouch [facility] Delica Delica Delica Family Lancets 30 Lancets 30 Lancets 30 Practic gauge Take gauge Take gauge Take e 1 each 3 1 each 3 1 each 3 times a day times a day times a by miscell. by miscell. day by route. route. miscell. route. OneTouch OneTouch No 1strip( TID OneTouch [facility] Verio test Verio test s) Verio test Family strips Take strips Take strips Practic 1 strip 3 1 strip 3 Take 1 e times a day times a day strip 3 by miscell. by miscell. times a route. route. day by miscell. route. oseltamivir oseltamivir No oseltamivi [facility] 75 mg 75 mg r 75 mg Family capsule capsule capsule Practi c TAKE 1 TAKE 1 TAKE 1 e CAPSULE BY CAPSULE BY CAPSULE BY MOUTH EVERY MOUTH EVERY MOUTH 12 HOURS 12 HOURS EVERY 12 FOR 5 DAYS FOR 5 DAYS HOURS FOR 5 DAYS ramipril 10 ramipril 10 ramipril [facility] mg capsule mg capsule 10 mg Fa benigno TAKE 1 TAKE 1 capsule Practic CAPSULE BY CAPSULE BY TAKE 1 e MOUTH EVERY MOUTH EVERY CAPSULE BY DAY DAY MOUTH EVERY DAY spironolact spironolact spironolac [facility] one 25 mg one 25 mg tone 25 mg Family tablet TAKE tablet TAKE tablet Practic 1 TABLET BY 1 TABLET BY TAKE 1 e MOUTH 1 MOUTH 1 TABLET BY TIME EACH TIME EACH MOUTH 1 DAY. DAY. TIME EACH DAY. Sutab Sutab No Sutab [facility] 1.479-0.188 1.479-0.188 1.479-0.18 Family -0.225 gram -0.225 gram 8-0.225 Practic tablet tablet gram e PLEASE SEE PLEASE SEE tablet ATTACHED ATTACHED PLEASE SEE FOR FOR ATTACHED DETAILED DETAILED FOR DIRECTIONS DIRECTIONS DETAILED DIRECTIONS Brad Caraballo No Brad Caraballo [facility] U-300 U-300 U-300 Family SoloStar SoloStar SoloStar Pra ctic 300 unit/mL 300 unit/mL 300 e (3 mL) (3 mL) unit/mL (3 subcutaneou subcutaneou mL) s insulin s insulin subcutaneo pen GIVE 14 pen GIVE 14 us insulin UNITS IN UNITS IN pen GIVE THE MORNING THE MORNING 14 UNITS AND AND IN THE INCREASE INCREASE MORNING DIRECTED DIRECTED AND TOTAL DAILY TOTAL DAILY INCREASE DOSE OF 50 DOSE OF 50 UNITS UNITS DIRECTED TOTAL DAILY DOSE OF 50 UNITS Trulicity 3 Trulicity 3 No Trulicity [facility] mg/0.5 mL mg/0.5 mL 3 mg/0.5 F amily subcutaneou subcutaneou mL P ractic s pen s pen subcutaneo e injector injector us pen INJECT 3 MG INJECT 3 MG injector EVERY WEEK EVERY WEEK INJECT 3 BY BY MG EVERY SUBCUTANEOU SUBCUTANEOU WEEK BY S ROUTE FOR S ROUTE FOR SUBCUTANEO 30 DAYS. 30 DAYS. US ROUTE FOR 30 DAYS. albuterol albuterol No albuterol [facility] sulfate HFA [...] SHORTNESS OF BREATH amlodipine amlodipine No amlodipine [facility] 5 mg tablet 5 mg tablet 5 mg F amily tablet Practic e atorvastati atorvastati No atorvastat [facility] n 80 mg n 80 mg in 80 mg Famil y tablet TAKE tablet TAKE tablet Practic 1 TABLET BY 1 TABLET BY TAKE 1 e MOUTH MOUTH TABLET BY EVERYDAY AT EVERYDAY AT MOUTH BEDTIME BEDTIME EVERYDAY AT BEDTIME azithromyci azithromyci No azithromyc [facility] n 250 mg n 250 mg [...] e gauge x gauge x gauge x 10/05" USE 10/05" USE 10/05" USE DIRECTED DIRECTED 2 TIMES 2 TIMES DIRECTED 2 Daily Daily TIMES Daily bupropion bupropion No bupropion [facility] HCl XL 150 HCl XL 150 HCl XL 150 Family mg 24 hr mg 24 hr mg 24 hr Pra ctic tablet, tablet, tablet, e extended extended extended release release release TAKE 1 TAKE 1 TAKE 1 TABLET BY TABLET BY TABLET BY MOUTH EVERY MOUTH EVERY MOUTH DAY FOR 30 DAY FOR 30 EVERY DAY DAYS DAYS FOR 30 DAYS carvedilol carvedilol No carvedilol [facility] 25 mg 25 mg 25 mg Family tablet TAKE tablet TAKE tablet Practic 1 TABLET 1 TABLET TAKE 1 e (25 MG (25 MG TABLET (25 TOTAL) BY TOTAL) BY MG TOTAL) MOUTH IN MOUTH IN BY MOUTH THE MORNING THE MORNING IN THE AND 1 AND 1 MORNING TABLET (25 TABLET (25 AND 1 MG TOTAL) MG TOTAL) TABLET (25 IN THE IN THE MG TOTAL) EVENING. EVENING. IN THE EVENING. Farxiga 10 Farxiga 10 No Farxiga 10 [facility] mg tablet mg tablet mg tablet Family TAKE 1 TAKE 1 TAKE 1 Practic TABLET BY TABLET BY TABLET BY e MOUTH EVERY MOUTH EVERY MOUTH DAY IN THE DAY IN THE EVERY DAY MORNING MORNING IN THE MORNING FreeStyle FreeStyle No FreeStyle [facility] Papi 2 Papi 2 Papi 2 Family Sensor kit Sensor kit Sensor kit Practic USE USE USE e DIRECTED DIRECTED DIRECTED DAILY BUT DAILY BUT DAILY BUT CHANGE CHANGE CHANGE EVERY 14 EVERY 14 EVERY 14 DAYS. DAYS. DAYS. FreeStyle FreeStyle No Free[facility] 3 Papi 3 Papi 3 Family Sensor Sensor Sensor Practic device USE device USE device USE e DIRECTED DIRECTED DAILY BUT DAILY BUT DIRECTED CHANGE CHANGE DAILY BUT EVERY 14 EVERY 14 CHANGE DAYS DAYS EVERY 14 DAYS furosemide furosemide No furosemide [facility] 40 mg 40 mg 40 mg Family tablet TAKE tablet TAKE tablet Practic 2 TABLETS 2 TABLETS TAKE 2 e BY MOUTH BY MOUTH TABLETS BY TWICE A DAY TWICE A DAY MOUTH TWICE A DAY gabapentin gabapentin No gabapentin [facility] 100 mg 100 mg 100 mg Family capsule capsule capsule Practi c TAKE 2 TAKE 2 TAKE 2 e CAPSULES BY CAPSULES BY CAPSULES MOUTH TWO MOUTH TWO BY MOUTH TIMES A TIMES A TWO TIMES DAY. DAY. A DAY. hydralazine hydralazine No hydralazin [facility] 50 mg 50 mg e 50 mg Family tablet TAKE tablet TAKE tablet Practic 1 & 1/2 1 & 1/2 TAKE 1 & e TABLET BY TABLET BY 1/2 TABLET MOUTH THREE MOUTH THREE BY MOUTH TIMES A DAY TIMES A DAY THREE TIMES A DAY metoclopram metoclopram No metoclopra [facility] juan antonio 10 mg juan antonio 10 mg mide 10 mg Family tablet TAKE tablet TAKE tablet Practic 3 TABLETS 3 TABLETS TAKE 3 e BY MOUTH BY MOUTH TABLETS BY DIRECTED DIRECTED MOUTH USE USE DIRECTED DIRECTED DIRECTED USE PER YOUR PER YOUR DIRECTED COLONOSCOPY COLONOSCOPY PER YOUR PREP PACKET PREP PACKET COLONOSCOP Y PREP PACKET metoprolol [facility]op[facility] tartrate tartrate tartrate Fam livan 100 mg 100 mg 100 mg Practic tablet TAKE tablet TAKE tablet e 1 TABLET BY 1 TABLET BY TAKE 1 MOUTH TWICE MOUTH TWICE TABLET BY A DAY A DAY MOUTH TWICE A DAY metoprolol [facility]op[facility]ol [facility] tartrate 50 tartrate 50 tartrate Family mg tablet mg tablet 50 mg Prac tic TAKE 1.5 TAKE 1.5 tablet e TABLET BY TABLET BY TAKE 1.5 MOUTH TWO MOUTH TWO TABLET BY TIMES A DAY TIMES A DAY MOUTH TWO TIMES A DAY Novolog Mix Novolog Mix No Novolog [facility] 70-30 70-30 Mix 70-30 Family FlexPen FlexPen FlexPen Practi c U-100 U-100 U-100 e Insulin 100 Insulin 100 Insulin unit/mL unit/mL 100 subcutaneou subcutaneou unit/mL s pen Give s pen Give subcutaneo 30 units 30 units us pen before before Give 30 breakfast breakfast units and dinner and dinner before and and breakfast increase as increase as and dinner directed: directed: and TDD 150 TDD 150 increase as directed: TDD 150 OneTouch OneTouch No 1each TID OneTouch [facility] Delica Delica Delica Family Lancets 30 Lancets 30 Lancets 30 Practic gauge Take gauge Take gauge Take e 1 each 3 1 each 3 1 each 3 times a day times a day times a by miscell. by miscell. day by route. route. miscell. route. OneTouch OneTouch No 1strip( TID OneTouch [facility] Verio test Verio test s) Verio test Family strips Take strips Take strips Practic 1 strip 3 1 strip 3 Take 1 e times a day times a day strip 3 by miscell. by miscell. times a route. route. day by miscell. route. oseltamivir oseltamivir No oseltamivi [facility] 75 mg 75 mg r 75 mg Family capsule capsule capsule Practi c TAKE 1 TAKE 1 TAKE 1 e CAPSULE BY CAPSULE BY CAPSULE BY MOUTH EVERY MOUTH EVERY MOUTH 12 HOURS 12 HOURS EVERY 12 FOR 5 DAYS FOR 5 DAYS HOURS FOR 5 DAYS ramipril 10 ramipril 10 No ramipril [facility] mg capsule mg capsule 10 mg Fa benigno TAKE 1 TAKE 1 capsule Practic CAPSULE BY CAPSULE BY TAKE 1 e MOUTH EVERY MOUTH EVERY CAPSULE BY DAY DAY MOUTH EVERY DAY spironolact spironolact No spironolac [facility] one 25 mg one 25 mg tone 25 mg Family tablet TAKE tablet TAKE tablet Practic 1 TABLET BY 1 TABLET BY TAKE 1 e MOUTH 1 MOUTH 1 TABLET BY TIME EACH TIME EACH MOUTH 1 DAY. DAY. TIME EACH DAY. Sutab Sutab No Sutab [facility] 1.479-0.188 1.479-0.188 1.479-0.18 Family -0.225 gram -0.225 gram 8-0.225 Practic tablet tablet gram e PLEASE SEE PLEASE SEE tablet ATTACHED ATTACHED PLEASE SEE FOR FOR ATTACHED DETAILED DETAILED FOR DIRECTIONS DIRECTIONS DETAILED DIRECTIONS Ludwigumily Caraballo No Brad Caraballo [facility] U-300 U-300 U-300 Family SoloStar SoloStar SoloStar Pra ctic 300 unit/mL 300 unit/mL 300 e (3 mL) (3 mL) unit/mL (3 subcutaneou subcutaneou mL) s insulin s insulin subcutaneo pen GIVE 14 pen GIVE 14 us insulin UNITS IN UNITS IN pen GIVE THE MORNING THE MORNING 14 UNITS AND AND IN THE INCREASE INCREASE MORNING DIRECTED DIRECTED AND TOTAL DAILY TOTAL DAILY INCREASE DOSE OF 50 DOSE OF 50 UNITS UNITS DIRECTED TOTAL DAILY DOSE OF 50 UNITS Trulicity 3 Trulicity 3 No Trulicity [facility] mg/0.5 mL mg/0.5 mL 3 mg/0.5 F amily subcutaneou subcutaneou mL P ractic s pen s pen subcutaneo e injector injector us pen INJECT 3 MG INJECT 3 MG injector EVERY WEEK EVERY WEEK INJECT 3 BY BY MG EVERY SUBCUTANEOU SUBCUTANEOU WEEK BY S ROUTE FOR S ROUTE FOR SUBCUTANEO 30 DAYS. 30 DAYS. US ROUTE FOR 30 DAYS. Vital Signs Vital Name Observation Time Observation Value Comments Source BP Diastolic 2022-11-07 00:00:00 81 mm[Hg] [facility] Height 2022-11-07 00:00:00 63 [in_i] [facility] BMI (Body Mass 2022-11-07 00:00:00 35.6 kg/m2 [facility] BP Systolic 2022-11-07 00:00:00 120 mm[Hg] [facility] Body Weight 2022-11-07 00:00:00 201 [lb_av] [facility] BP Diastolic 2022-07-28 00:00:00 84 mm[Hg] [facility] Height 2022-07-28 00:00:00 63 [in_i] [facility] BMI (Body Mass 2022-07-28 00:00:00 35.3 kg/m2 [facility] BP Systolic 2022-07-28 00:00:00 142 mm[Hg] [facility] Body Weight 2022-07-28 00:00:00 199 [lb_av] [facility] BP Diastolic 2022-03-24 00:00:00 77 mm[Hg] [facility] Height 2022-03-24 00:00:00 63 [in_i] [facility] BMI (Body Mass 2022-03-24 00:00:00 36.1 kg/m2 [facility] BP Systolic 2022-03-24 00:00:00 131 mm[Hg] [facility] Body Weight 2022-03-24 00:00:00 204 [lb_av] [facility] BP Diastolic 2022-02-17 00:00:00 86 mm[Hg] [facility] Height 2022-02-17 00:00:00 63 [in_i] [facility] BMI (Body Mass 2022-02-17 00:00:00 36.7 kg/m2 [facility] BP Systolic 2022-02-17 00:00:00 152 mm[Hg] [facility] Body Weight 2022-02-17 00:00:00 207 [lb_av] [facility] BP Diastolic 2021-09-29 00:00:00 97 mm[Hg] [facility] Height 2021-09-29 00:00:00 63 [in_i] [facility] BMI (Body Mass 2021-09-29 00:00:00 41.6 kg/m2 [facility] BP Systolic 2021-09-29 00:00:00 159 mm[Hg] [facility] Body Weight 2021-09-29 00:00:00 235 [lb_av] [facility] BP Diastolic 2021-03-16 00:00:00 88 mm[Hg] [facility] Height 2021-03-16 00:00:00 63 [in_i] [facility] BMI (Body Mass 2021-03-16 00:00:00 41.8 kg/m2 [facility] BP Systolic 2021-03-16 00:00:00 163 mm[Hg] [facility] Body Weight 2021-03-16 00:00:00 236.2 [lb_av] [facility] Practice BP Diastolic 2021-01-17 00:00:00 95 mm[Hg] [facility] Height 2021-01-17 00:00:00 63 [in_i] [facility] Practice BMI (Body Mass 2021-01-17 00:00:00 43 kg/m2 [facility] BP Systolic 2021-01-17 00:00:00 156 mm[Hg] [facility] Body Weight 2021-01-17 00:00:00 243 [lb_av] [facility] Procedures This patient has no known procedures. Plan of Care Planned Activity Planned Date Details Comments Source Future Scheduled 2023-03-30 Screening for [facility] Test 07:40:21 malignant neoplasm of colon (procedure) [code = 120782896] Future Scheduled 2023-03-30 Screening for [facility] Test 07:40:21 malignant neoplasm of colon (procedure) [code = 328115108] Future Scheduled 2023-03-30 HEPATITIS B VACCINES [facility] Test 07:40:21 (1 of 3 - 3-dose series) [code = HEPATITIS B VACCINES (1 of 3 - 3-dose series)] Future Scheduled 2023-03-30 Screening for [facility] Test 07:40:21 malignant neoplasm of colon (procedure) [code = 044928263] Future Scheduled 2023-03-30 [facility] 07:40:21 Pediatrics (0 to 5 Years) and At-Risk Patients (6 to 64 Years) (1 - PCV) [code = Pneumococcal Vaccine: Pediatrics (0 to 5 Years) and At-Risk Patients (6 to 64 Years) (1 - PCV)] Future Scheduled 2023-03-30 Hepatitis C screening [facility] Test 07:40:21 (procedure) [code = 573094262] Future Scheduled 2023-03-30 Screening for [facility] Test 07:40:21 malignant neoplasm of cervix (procedure) [code = 487724779] Future Scheduled 2023-03-30 BREAST CANCER [facility] Test 07:40:21 SCREENING [code = BREAST CANCER SCREENING] Future Scheduled 2023-03-30 Screening for [facility] Test 07:40:21 malignant neoplasm of colon (procedure) [code = 259128166] Future Scheduled 2023-03-30 Screening for [facility] Test 07:40:21 malignant neoplasm of colon (procedure) [code = 694895441] Future Scheduled 2023-03-30 SHINGLES VACCINES (1 [facility] Test 07:40:21 of 2) [code = SHINGLES VACCINES (1 of 2)] Future Scheduled 2023-03-30 COVID-19 VACCINE (2 - [facility] Test 07:40:21 Pfizer series) [code = COVID-19 VACCINE (2 - Pfizer series)] Future Scheduled 2023-03-30 INFLUENZA VACCINE [facility] Test 07:40:21 (#1) [code = INFLUENZA VACCINE (#1)] Diagnostic Test 2022-11-07 glucose, fingerstick, Alec [facility] Pending 00:00:00 blood [code = Practice glucose, fingerstick, blood] Diagnostic Test 2022-11-07 hemoglobin A1C, [facility] Pending 00:00:00 fingerstick [code = Practice hemoglobin A1C, fingerstick] Encounters Start End Encounter Admission Attending Care Care Encounter Source Date/Time Date/Time Type Type Clinicians Facility Department ID 2022-11-06 Outpatient [facility] [id number] [place] 08:32:19 [id number] [facility] 2022-11-03 Outpatient [facility] [id number] [place] 15:32:32 [id number] [facility] 2022-11-20 2022-11-20 Outpatient SABILLON, [facility] [id number] [place] 10:15:00 10:15:00 [facility] 2022-11-07 2022-11-07 Outpatient Daniel_T VFP VFP [id number] [address] [place] [address] 00:00:00 00:00:00 [id number] Family Practic e 2022-11-07 2022-11-07 Outpatient Daniel_T VFP VFP [id number] [address] [place] [address] 00:00:00 00:00:00 [id number] Family Practic e 2022-11-07 2022-11-07 Constantino VFP [place] - [id number] V illage 00:00:00 00:00:00 [facility] Family LeijaBatsheva - Pracdana del rio MD: [id number] [place] - e Shadow Avani [facility], [address] [address] , Ph. 2022-08-24 2022-08-24 Outpatient Daniel_T VFP VFP [id number] [address] [place] [address] 00:00:00 00:00:00 [id number] Family Practic e 2022-07-28 2022-07-28 Outpatient Daniel_T VFP VFP [id number] [address] [place] [address] 00:00:00 00:00:00 [id number] Family Practic e 2022-07-28 2022-07-28 Outpatient Daniel_T VFP VFP [id number] [address] [place] [address] 00:00:00 00:00:00 [id number] Family Practic e 2022-07-28 2022-07-28 Constantino VFP [place] - [id number] V illage 00:00:00 00:00:00 [facility] Family LeijaBatsheva - Jenaro del rio MD: [id number] [place] - e Shadow Avani [facility], [address] [address] , Ph. 2022-07-27 2022-07-27 Outpatient Daniel_T VFP VFP [id number] [address] [place] [address] 00:00:00 00:00:00 [id number] Family Practic e 2022-04-20 2022-04-20 Outpatient Daniel_T VFP VFP [id number] [address] [place] [address] 00:00:00 00:00:00 [id number] Family Practic e 2022-03-24 2022-03-24 Outpatient Daniel_T VFP VFP [id number] [address] [place] [address] 00:00:00 00:00:00 [id number] Family Practic e 2022-03-24 2022-03-24 Constantino VFP [place] - [id number] V illage 00:00:00 00:00:00 [facility] Family LeijaBatsheva - Jenaro del rio MD: [id number] NAE_Yan mcmanus [facility], [address] [address] , Ph. 2022-03-08 2022-03-08 Outpatient Daniel_T VFP VFP [id number] [address] [place] [address] 00:00:00 00:00:00 [id number] Family Practic e 2022-02-17 2022-02-17 Outpatient Daniel_T VFP VFP [id number] [address] [place] [address] 00:00:00 00:00:00 [id number] Family Practic e 2022-02-17 2022-02-17 Constantino VFP [place] - [id number] V illage 00:00:00 00:00:00 [facility] Family LeijaBatsheva - Jenaro del rio MD: [id number] Avani marietta [facility], [address] [address] , Ph. 2021-10-06 2021-10-06 Outpatient Daniel_T VFP VFP [id number] [address] [place] [address] 05:55:00 05:55:00 [id number] Family Practic e 2021-10-06 2021-10-06 Outpatient Daniel_T VFP VFP [id number] [address] [place] [address] 05:55:00 05:55:00 [id number] Family Practic e 2021-10-06 2021-10-06 Outpatient Daniel_T VFP VFP [id number] [address] [place] [address] 00:00:00 00:00:00 [id number] Family Practic e 2021-09-30 2021-09-30 Outpatient Daniel_T VFP VFP [id number] [address] [place] [address] 01:27:00 01:27:00 [id number] Family Practic e 2021-09-29 2021-09-29 Outpatient Daniel_T VFP VFP [id number] [address] [place] [address] 11:09:00 11:09:00 [id number] Family Practic e 2021-09-29 2021-09-29 Constantino VFP [place] - [id number] V illage 00:00:00 00:00:00 [facility] Family LeijaBatsheva - Jenaro del rio MD: [id number] NAE_SHANTELLE_Alpesh e Shadow [address] [facility] [address], [place] [address] , Ph. 2021-09-24 2021-09-26 Inpatient [place] [id number] [address] [place] [address] 00:00:00 00:00:[address]ER [address] 2021-09-25 2021-09-25 Outpatient Daniel_T VFP VFP [id number] [address] [place] [address] 08:26:00 08:26:00 [id number] Family Practic e 2021-09-25 2021-09-25 Outpatient Daniel_T VFP VFP [id number] [address] [place] [address] 08:26:00 08:26:00 [id number] Family Practic e 2021-08-05 2021-08-05 [facility] [id number] Univers 00:00:00 00:00:00 Only Jodi J SPECIALTY [id number] ity [facility] [id number] [facility] COLONY [id number] [facility] [address] 2021-04-06 2021-04-06 Outpatient Daniel_T VFP VFP [id number] [address] [place] [address] 02:39:00 02:39:00 [id number] Family Practic e 2021-04-06 2021-04-06 Outpatient Daniel_T VFP VFP [id number] [address] [place] [address] 02:39:00 02:39:00 [id number] Family Practic e 2021-03-17 2021-03-17 Outpatient Daniel_T VFP VFP [id number] [address] [place] [address] 07:11:00 07:11:00 [id number] Family Practic e 2021-03-16 2021-03-16 Outpatient Daniel_T VFP VFP [id number] [address] [place] [address] 03:56:00 03:56:00 [id number] Family Practic e 2021-03-16 2021-03-16 Constantino VFP [place] - [id number] V illage 00:00:00 00:00:00 [facility] Family LeijaBatsheva - Pracdana del rio MD: [id number] NAE_SHANTELLE_Alpesh marietta Shadow [facility] [address] [facility], [address], [place] [address] , Ph. 2021-02-05 2021-02-05 Outpatient Daniel_T VFP VFP [id number] [address] [place] [address] 01:36:00 01:36:00 [id number] Family Practic e 2021-02-05 2021-02-05 Outpatient Daniel_T VFP VFP [id number] [address] [place] [address] 01:36:00 01:36:00 [id number] Family Practic e 2021-02-05 2021-02-05 Outpatient Daniel_T VFP VFP [id number] [address] [place] [address] 01:36:00 01:36:00 [id number] Family Practic e 2021-01-20 2021-01-20 Outpatient Daniel_T VFP VFP [id number] [address] [place] [address] 05:38:00 05:38:00 [id number] Family Practic e 2021-01-17 2021-01-17 Outpatient Daniel_T VFP VFP [id number] [address] [place] [address] 03:56:00 03:56:00 [id number] Family Practic e 2021-01-17 2021-01-17 Constantino VFP [place] - [id number] V illage 00:00:00 00:00:00 [facility] Family LeijaBatsheva - Pracdana del rio MD: [id number] NAE_SHANTELLE_Alpesh marietta Shadow [facility], [address], [place] [address] , Ph. 2021-01-04 2021-01-04 Outpatient Daniel_T VFP VFP [id number] [address] [place] [address] 05:34:00 05:34:00 [id number] Family Practic e 2020-12-08 2020-12-08 Outpatient Daniel_T VFP VFP [id number] [address] [place] [address] 12:23:00 12:23:00 [id number] Family Practic e 2020-04-02 2020-04-02 Outpatient milagro_t P [facility] [id number] [id number] [facility] 12:23:00 12:23:00 [id number] Family Practic e Results Test Description Test Time Test Comments Results Result Comments Source Hemoglobin A1c measurement device panel 2022-11-07 15:20:56 Test Item Value Reference Range Interpretation Comme nts Hemoglobin A1c/Hemoglobin.total in Blood (test code = 4548-4) 9.9 % [facility]4 [facility] measurement device [id number] 15:20:56 Test Item Value Reference Range Interpretation Comments Hemoglobin A1c/Hemoglobin.total in 9.9 % 5.7-6.4 Blood (test code = 4548-4) [facility] Capillary [id number] 15:16:41 Test Item Value Reference Range Interpretation Comments Blood Glucose: mg/dl (test code = Blood 157 Glucose: mg/dl) [facility]] in Capillary [id number] 15:16:41 Test Item Value Reference Range Interpretation Comments Blood Glucose: mg/dl (test code = Blood 157 Glucose: mg/dl) [facility] device [id number] 10:35:22 Test Item Value Reference Range Interpretation Comments Hemoglobin A1c/Hemoglobin.total in 9.1 % 5.7-6.4 Blood (test code = 4548-4) [facility] [[facility]/volume] in Capillary [id number] 10:35:12 Test Item Value Reference Range Interpretation Comments Blood Glucose: mg/dl (test code = Blood 103 Glucose: mg/dl) [facility] [Mass/volume] in Capillary [id number] 11:00:47 Test Item Value Reference Range Interpretation Comments Blood Glucose: mg/dl (test code = Blood 192 Glucose: mg/dl) [facility] measurement device [id number] 11:49:26 Test Item Value Reference Range Interpretation Comments Hemoglobin A1c/Hemoglobin.total in 11.8 % 5.7-6.4 Blood (test code = 4548-4) [facility]/volume] in Capillary [id number] 11:45:35 Test Item Value Reference Range Interpretation Comments Blood Glucose: mg/dl (test code = Blood 193 Glucose: mg/dl) [facility] [[facility]/volume] in Capillary [id number] 10:39:34 Test Item Value Reference Range Interpretation Comments Blood Glucose: mg/dl (test code = Blood 438 Glucose: mg/dl) [facility] measurement device [id number] 10:39:20 Test Item Value Reference Range Interpretation Comments Hemoglobin A1C Fingerstick: (test code 13.3 = Hemoglobin A1C Fingerstick:) [facility] [Presence] in Respiratory specimen by SYLVIE with probe [id number] 07:56:28 Test Item Value Reference Range Interpretation Comments SARS coronavirus RNA [Presence] Not detected in Isolate by SYLVIE with probe detection (test code = 21645-6) Whether patient is employed in a Unknown healthcare setting (test code = 74613-4) Whether the patient has symptoms Unknown related to condition of interest (test code = 76848-5) Whether the patient was Unknown hospitalized for condition of interest (test code = 92415-8) Whether the patient was admitted Unknown to intensive care unit (ICU) for condition of interest (test code = 77003-1) Whether patient resides in a Unknown congregate care setting (test code = 68852-2) status (test code = Unknown 88897-0) Date and time of symptom onset Unknown (test code = 58348-9) [facility] RNA [Presence] in Respiratory specimen by SYLVIE with probe [id number] 07:56:28 Test Item Value Reference Range Interpretation Comments SARS-CoV-2 (COVID-19) RNA Not detected [Presence] in Respiratory specimen by SYLVIE with probe detection (test code = 48359-9) Whether patient is employed in a Unknown healthcare setting (test code = 31392-4) Whether the patient has symptoms Unknown related to condition of interest (test code = 59563-7) Whether the patient was Unknown hospitalized for condition of interest (test code = 14170-7) Whether the patient was admitted Unknown to intensive care unit (ICU) for condition of interest (test code = 43138-0) Whether patient resides in a Unknown congregate care setting (test code = 06785-6) status (test code = Unknown 61510-9) Date and time of symptom onset Unknown (test code = 51322-8) [facility]adsen [facility]Mass/volume] in Capillary blood 2021-01-17 13:51:00 Test Item Value Reference Range Interpretation Comments Blood Glucose: mg/dl (test code = Blood 211 Glucose: mg/dl) [facility]
[2023-04-11 17:58] LABS: Hematocrit 26.6 % (36.0-45.0); Lymphocytes % 27.1 % (15.3-44.8); MCV 85.6 fL (80-100); MPV 8.7 fL (7.6-11.3); Platelets 276 thou/uL (152-406)
[2023-04-11 18:06] LABS: Magnesium 1.6 mg/dL (1.6-2.4); Troponin High Sensitivity 17.6 pg/mL (<58.9)
--- NOTE | 2023-04-11 18:18 | RAD REPORT ---
EXAM DESCRIPTION: RADChest Single View04/11/2023 4:54 pm CLINICAL HISTORY: DYSPNEA COMPARISON: Chest Pa And Lat (2 Views) dated 11/22/2022; Chest Pa And Lat (2 Views) dated 11/17/2022; C hest Single View dated 12/21/2021; Chest Single View dated 12/03/2021 TECHNIQUE: Portable AP view of the chest. FINDINGS: Central interstitial prominence. Perihilar fluffy opacities. Small bilateral effusions. N o pneumothorax. The cardiomediastinal contours are unremarkable. IMPRESSION: Findings suggestive of central congestion or early pulmonary edema.
--- NOTE | 2023-04-11 18:24 | EDPHYS ---
Physician Documentation [facility] Name: Mariaa Peguero Age: 52 yrs Sex: Female : 1970 Arrival Date: 04/11/2023 Time: 16:16 Bed 6 Private MD: ED Physician Cassie Colon HPI: 04/11 18:53 This 52 yrs old Black Female presents to ER via Ambulatory with complaints of Shortness kb Of Breath. 18:53 The patient has shortness of breath and the patient has a history of CHF, worse on kb exertion and supine position. Onset: The symptoms/episode began/occurred 4 day(s) ago. Duration: The symptoms are continuous. The patient's shortness of breath is aggravated by exertion, supine position. Associated signs and symptoms: The patient has no apparent associated signs or symptoms. Severity of symptoms: At their worst the symptoms were moderate in the emergency department the symptoms are unchanged. The patient has experienced similar episodes in the past, today's symptoms are similar, to previous CHF exacerbations. The patient has not recently seen a physician. Pt reports shortness of breath for 4 days that is similar to previous CHF exacerbations. States in the past she is, and had IV Lasix in the ER and was able to go home. States she is hoping that is the case today because she has things to do tomorrow. Reports she is taking 80 mg of Lasix daily, as well as spironolactone 25 mg daily. Historical: - Allergies: 16:31 PENICILLINS; ph - PMHx: 16:31 diabetes mellitus; Hypercholesterolemia; Hypertension; Congestive heart failure; ph - PSHx: 16:31 ; Liver; ph - Immunization history:: Adult Immunizations unknown. - Social history:: Smoking status: Patient denies any tobacco usage or history of. ROS: 18:52 Constitutional: Negative for fever, chills, and weight loss, kb 18:52 Respiratory: Positive for dyspnea on exertion, orthopnea, shortness of breath, 18:52 All other systems are negative, Exam: 18:51 Constitutional: This is a well developed, well nourished patient who is awake, alert, kb and in no acute distress. Head/Face: Normocephalic, atraumatic. ENT: Moist Mucous membranes Cardiovascular: Regular rate Respiratory: Respirations even and unlabored. No increased work of breathing. Talking in full sentences Abdomen/GI: Soft, non-tender. No distention Skin: Warm, dry with normal turgor. Normal color. MS/ Extremity: Pulses equal, no cyanosis. Neurovascular intact. Full, normal range of motion. Neuro: Awake and alert, GCS 15, oriented to person, place, time, and situation. Moves all extremities. Normal gait. 18:51 ECG was reviewed by the Attending Physician. Vital Signs: 16:20 BP 190 / 91; Pulse 80; Resp 17; Temp 97.7; Pulse Ox 99% on R/A; rs5 16:27 BP 199 / 101; Pulse 86; Resp 18; Temp 97.8; Pulse Ox 97% on R/A; ph 17:15 BP 193 / 92; Pulse 78; Resp 18; Pulse Ox 99% on R/A; rs5 18:00 BP 188 / 113; Pulse 79; Resp 17; Pulse Ox 99% on R/A; rs5 19:05 BP 182 / 108; Pulse 77; Resp 17; Pulse Ox 98% on R/A; rs5 MDM: 16:35 Patient medically screened. kb 18:56 Differential diagnosis: CHF exacerbation, pneumonia, pulmonary edema. Data reviewed: kb vital signs, nurses notes. Consideration of Admission/Observation Escalation of care including admission/observation considered. Admission considered and discussed with patient but she does not want to stay in the hospital. States she has an appointment with her assigner tomorrow at 2 PM. Educated on strict return precautions. Patient is nontoxic in appearance, lungs clear bilaterally, respirations even and unlabored, oxygen 98 to 100% on room air.. Care significantly affected by the following chronic conditions: Diabetes, Hypertension, Congestive Heart Failure, Chronic Kidney Disease. Counseling: I had a detailed discussion with the patient and/or guardian regarding the historical points, exam findings, and any diagnostic results supporting the discharge/admit diagnosis, lab results, radiology results, the need for further work-up and treatment in the hospital. 04/11 16:35 Order name: Basic Metabolic Panel; Complete Time: 18:08 kb 04/11 16:35 Order name: CBC with Diff; Complete Time: 18:08 kb 04/11 16:35 Order name: Magnesium; Complete Time: 18:08 kb 04/11 16:35 Order name: NT PRO-BNP; Complete Time: 18:08 kb 04/11 16:35 Order name: Troponin HS; Complete Time: 18:08 kb 04/11 16:35 Order name: XRAY Chest (1 view); Complete Time: 18:20 kb 04/11 16:35 Order name: EKG; Complete Time: 16:36 kb 04/11 16:35 Order name: Cardiac monitoring; Complete Time: 17:39 kb 04/11 16:35 Order name: EKG - Nurse/Tech; Complete Time: 17:39 kb 04/11 16:35 Order name: IV Saline Lock; Complete Time: 17:39 kb 04/11 16:35 Order name: Labs collected and sent; Complete Time: 17:39 kb 04/11 16:35 Order name: O2 Per Protocol; Complete Time: 17:39 kb 04/11 16:35 Order name: O2 Sat Monitoring; Complete Time: 17:39 kb EC:51 Rate is 81 beats/min. Rhythm is regular. QRS [place] is Normal. [place] interval is normal at kb 130 msec. QRS interval is normal at 66 msec. QT interval is normal at 457 msec. Administered Medications: No medications were administered Disposition Summary: 04/11/23 18:23 Discharge Ordered Notes: Location: Home kb Condition: Stable kb Diagnosis - Unspecified combined systolic (congestive) and diastolic (congestive) heart failure kb - Dyspnea kb - Chronic kidney disease, unspecified - acute on chronic kb Followup: kb - With: Emergency Department - When: As needed - Reason: Worsening of condition Followup: kb - With: Private Physician - When: 2 - 3 days - Reason: Recheck today's complaints, Continuance of care, Re-evaluation by your physician Discharge Instructions: - Discharge Summary Sheet kb - Shortness of Breath, Adult, [id number] kb - Chronic Kidney Disease, Adult, [id number] kb - Heart Failure, Self-Care, [id number] kb Forms: - Medication Reconciliation Form kb - Thank You Letter kb - Antibiotic Education kb - Prescription Opioid Use kb - Patient Portal Instructions kb - Leadership Thank You Letter kb Signatures: Dispatcher [employer] Priscila Juárez, ARNOLDOC DAMION-Yenni Hidalgo RN RN ph
--- NOTE | 2023-04-11 18:24 | ER ---
Nurse's Notes [facility] Name: Mariaa Peguero Age: 52 yrs Sex: Female : 1970 Arrival Date: 04/11/2023 Time: 16:16 Bed 6 Private MD: Diagnosis: Unspecified combined systolic (congestive) and diastolic (congestive) heart failure;Dyspnea;Chronic kidney disease, unspecified-acute on chronic Presentation: 04/11 16:27 Chief complaint: Patient states: SOB x a few days, worse w/ ambulation or lying flat, ph also reports swelling to ankles, hx of CHF, states that the symptoms feel similar to previous episodes. Coronavirus screen: Vaccine status: Patient reports receiving the 2nd dose of the covid vaccine. Ebola Screen: No symptoms or risks identified at this time. Initial Sepsis Screen: Does the patient meet any 2 criteria? No. Patient's initial sepsis screen is negative. Does the patient have a suspected source of infection? No. Patient's initial sepsis screen is negative. Risk Assessment: Do you want to hurt yourself or someone else? Patient reports no desire to harm self or others. Onset of symptoms was April 11, 2023. 16:27 Method Of Arrival: Ambulatory ph 16:27 Acuity: SARA 2 ph Triage Assessment: 16:31 General: Appears in no apparent distress. comfortable, well groomed, Behavior is calm, ph cooperative, appropriate for age. Pain: Denies pain. Neuro: Level of Consciousness is awake, alert, obeys commands, Oriented to person, place, time, situation. Respiratory: Reports shortness of breath at rest Onset: The symptoms/episode began/occurred gradually, the patient has mild shortness of breath. Historical: - Allergies: 16:31 PENICILLINS; ph - PMHx: 16:31 diabetes mellitus; Hypercholesterolemia; Hypertension; Congestive heart failure; ph - PSHx: 16:31 ; Liver; ph - Immunization history:: Adult Immunizations unknown. - Social history:: Smoking status: Patient denies any tobacco usage or history of. Screenin:20 [facility] ED Fall Risk Assessment (Adult) History of falling in the last 3 months, rs5 including since admission No falls in past 3 months (0 pts) Confusion or Disorientation No (0 pts) Intoxicated or Sedated No (0 pts) Impaired Gait No (0 pts) Mobility Assist Device Used No (0 pt) Altered Elimination No (0 pt) Score/Fall Risk Level 0 - 2 = Low Risk Oriented to surroundings, Maintained a safe environment. 16:20 Abuse screen: Denies threats or abuse. Nutritional screening: No deficits noted. rs5 Tuberculosis screening: No symptoms or risk factors identified. Assessment: 16:40 General: Appears in no apparent distress. comfortable, Behavior is calm, cooperative. rs5 16:40 Pain: Denies pain. Neuro: Level of Consciousness is awake, alert, obeys commands, rs5 Oriented to person, place, time, situation. Cardiovascular: Denies chest pain, Heart tones S1 S2 present Rhythm is regular. Respiratory: Airway is patent Respiratory effort is even, unlabored, Respiratory pattern is regular, symmetrical. Respiratory: Reports shortness of breath on exertion since four days ago, worse today Breath sounds with crackles bilaterally. GI: Abdomen is round non-distended, Bowel sounds present X 4 quads. Abd is soft and non tender X 4 quads. : No signs and/or symptoms were reported regarding the genitourinary system. EENT: No signs and/or symptoms were reported regarding the EENT system. Derm: Skin is pink, warm \T\ dry. 16:45 Reassessment: Provider notified of elevated blood pressure. rs5 17:45 Reassessment: No changes from previously documented assessment. rs5 18:30 Reassessment: Patient and/or family updated on plan of care and expected duration. Pain rs5 level reassessed. Patient is alert, oriented x 3, equal unlabored respirations, skin warm/dry/pink. 18:32 Reassessment: Provider notified of elevated blood pressure . rs5 Vital Signs: 16:20 BP 190 / 91; Pulse 80; Resp 17; Temp 97.7; Pulse Ox 99% on R/A; rs5 16:27 BP 199 / 101; Pulse 86; Resp 18; Temp 97.8; Pulse Ox 97% on R/A; ph 17:15 BP 193 / 92; Pulse 78; Resp 18; Pulse Ox 99% on R/A; rs5 18:00 BP 188 / 113; Pulse 79; Resp 17; Pulse Ox 99% on R/A; rs5 19:05 BP 182 / 108; Pulse 77; Resp 17; Pulse Ox 98% on R/A; rs5 ED Course: 16:20 Patient arrived in ED. im 16:20 Patient has correct armband on for positive identification. Placed in gown. Bed in low rs5 position. Call light in reach. Side rails up X2. Adult w/ patient. 16:28 Priscila Cunha FNP-C is [facility]. kb 16:28 Cassie Colon is Attending Physician. kb 16:31 Triage completed. ph 16:31 Arm band placed on. ph 16:55 XRAY Chest (1 view) In Process Unspecified. EDMS 17:10 Patient placed in an exam room, on a stretcher. kc6 17:20 Uriel Johnson, RN is Primary Nurse. rs5 19:19 No provider procedures requiring assistance completed. IV discontinued, intact, rs5 bleeding controlled, No redness/swelling at site. Pressure dressing applied. Administered Medications: No medications were administered Medication: 19:19 VIS not applicable for this client. rs5 Outcome: 18:23 Discharge ordered by MD. kb 19:17 Patient left the ED. rs5 19:19 Discharged to home ambulatory, with family, rs5 19:19 Condition: stable 19:19 Discharge instructions given to patient, family, Instructed on discharge instructions, follow up and referral plans. Demonstrated understanding of instructions, follow-up care, Signatures: Dispatcher [employer] EDRI Priscila Cunha FNP-C [employer]OLT [employer]KER-Yenni Hidalgo RN RN Lisbet Liu RN RN kc6 Uriel Johnson, RN RN rs5 Moon Sarabia Corrections: (The following items were deleted from the chart) 19:01 16:40 Respiratory: Breath sounds with crackles bilaterally. rs5 rs5
== END 2023-04-11 19:17 | disposition home or self-care (01) ==
LOC: ER 16:16
DX: I50.40 Unspecified combined systolic (congestive) and diastolic (congestive) heart failure (principal); E11.22 Type 2 diabetes mellitus with diabetic chronic kidney disease; I12.9 Hypertensive chronic kidney disease with stage 1 through stage 4 chronic kidney disease, or unspecified chronic kidney disease; N18.9 Chronic kidney disease, unspecified; N17.9 Acute kidney failure, unspecified; Z88.0 Allergy status to penicillin
CPT/HCPCS: 36415; 71045; 80048; 83735; 83880; 84484; 85025

== ENCOUNTER 2023-06-13 07:31 | Day surgery (SDC) | payer OTHER ==
[2023-06-07 16:19] LABS: Absolute Lymphocytes (CBC) 2.3 K/uL (0.7-4.9); Hematocrit 25.7 % (36.0-45.0); Lymphocytes % 28.5 % (15.3-44.8); MCV 84.8 fL (80-100); MPV 8.2 fL (7.6-11.3); Platelets 262 thou/uL (152-406); RBC Red Blood Cell Count 3.03 M/uL (3.86-4.86)
[2023-06-07 16:50] LABS: Potassium 4.3 mEq/L (3.5-5.1)
--- NOTE | 2023-06-07 18:50 | RAD REPORT ---
EXAM DESCRIPTION: RAD - Chest Pa And Lat (2 Views) - 06/07/2023 4:01 pm CLINICAL HISTORY: Pre op pending tesio cath placement COMPARISON: Chest Single View dated 04/11/2023; Chest Pa And Lat (2 Views) dated 11/22/2022; Chest Pa A nd Lat (2 Views) dated 11/17/2022; Chest Single View dated 12/21/2021 TECHNIQUE: PA and lateral views of the chest were obtained. FINDINGS: Stable mild central interstitial prominence and trace bilateral effusions, may reflect reema tral congestive changes or mild pulmonary edema. No new focal airspace opacities. Heart size is melo l and central vasculature is within normal limits. No pneumothorax seen. No acute bony finding noted. IMPRESSION: Stable findings as above.
[2023-06-13] MEDS ORDERED: CEFAZOLIN SODIUM 2 GM/VIAL ONE (08:03)
[2023-06-13] MEDS ORDERED: NA CHLORIDE 0.9% 500 ML ONE (08:03)
[2023-06-13] MEDS ORDERED: NS 0.9% VIAL 10 ML ONE (08:12)
[2023-06-13] MEDS ORDERED: HEPARIN 5000 UNIT/ML 1 ML VIAL ONE (08:13)
[2023-06-13] MEDS ORDERED: NA CHLORIDE 0.9% 100 ML ONE (08:14)
[2023-06-13] MEDS ORDERED: FENTANYL CITR 100 MCG/2 ML ONE (08:38)
[2023-06-13] MEDS ORDERED: LIDOCAINE 2% MPF 5 ML VIAL ONE (08:38)
[2023-06-13] MEDS ORDERED: propofoL 200 MG/20 ML VIAL IV ONE (08:38)
[2023-06-13] MEDS: LIDOCAINE 1% MPF 30 ML VIAL ONE ×2 (09:03→09:06)
[2023-06-13] MEDS ORDERED: SUCCINYLCHOLINE 20 MG/ML (10 ML) IV ONE (09:26)
[2023-06-13] MEDS ORDERED: SUGAMMADEX SODIUM 200 MG/2 ML VIAL IV ONE (09:26)
--- NOTE | 2023-06-13 09:44 | P.OP ---
Date of Service: 06/13/23 Preop diagnosis: Acute on chronic renal failure Postop diagnosis: Same Procedure performed: Placement of right IJ Tessio catheter, interpretation of ultrasound and fluoroscopy Surgeon: Marc Josue MD [place]: None Estimated blood loss: Minimal Specimen: None Findings: Normal anatomy Anesthesia: General Complications: None Drains: None Fluids and blood products: Nonapplicable Disposition: Recovery room Operative note: Patient brought to the OR and placed in the supine position. General anesthesia begun. Patient prepped and draped in usual sterile fashion. Lidocaine 1% infiltrated locally. Ultrasound device used to access the right IJ vein with an 18-gauge needle. Guidewire passed into position confirmed with fluoroscopy. Counterincision made on the right anterior chest. Tunneling device used to tunnel the catheter between the 2 wounds. Seldinger technique used. Tip of the catheter placed in the SVC and right atrial junction under fluoroscopy. Catheter flushed with heparin and packed with heparin with good blood flow. 3-0 chromic used to reapproximate subcutaneous tissue and close skin. 3-0 nylon used to secure the catheter to the chest wall. Sterile dressing applied. Patient awakened and taken to recovery room in good general condition. A chest x-ray has been ordered. CC: Dr. Acevedo's office
[2023-06-13] MEDS ORDERED: HYDROCODONE/APAP 5/325 MG TAB PO PRN (09:48)
--- NOTE | 2023-06-13 10:14 | RAD REPORT ---
EXAM DESCRIPTION: RAD - Fluoroscopy <1 Hour - 06/13/2023 9:29 am CLINICAL HISTORY: PLACEMENT OF TESSIO CATH COMPARISON: None available. FINDINGS: Two Images were sent to PACS, documenting fluoroscopic guidance during placement of a dial ysis catheter. No radiologist was available for the procedure, nor will any image interpretation he p rovided. Please refer to the procedural report for additional details. Fluoroscopy time: Less than 0.1 Minutes. IMPRESSION: Documentation of fluoroscopy utilization as above.
--- NOTE | 2023-06-13 10:31 | RAD REPORT ---
EXAM DESCRIPTION: RADChest Single View06/13/2023 10:04 am CLINICAL HISTORY: S/P TESSIO CATH INSERTION COMPARISON: Chest Pa And Lat (2 Views) dated 06/07/2023; Chest Single View dated 04/11/2023; Chest Pa And Lat (2 Views) dated 11/22/2022; Chest Pa And Lat (2 Views) dated 11/17/2022 TECHNIQUE: Portable AP view of the chest. FINDINGS: Right IJ dialysis catheter in satisfactory position with distal tip at the superior cavoat rial junction. Mild central interstitial prominence. No pneumothorax or effusion. The cardiomediasti nal contours are unremarkable. IMPRESSION: Satisfactory position of right IJ dialysis catheter. Mild central interstitial prominenc e.
[2023-06-13] MEDS ORDERED: HYDROCODONE/APAP 5/325 MG TAB ONE (11:24)
[2023-06-13 13:02] VITALS: BP 160/83; TEMP 97; O2SAT 97
== END 2023-06-13 11:46 | disposition home or self-care (01) ==
LOC: OR 07:31
PROVIDERS: ATTEND Surgery
PROC: 05HM33Z Insertion of Infusion Device into Right Internal Jugular Vein, Percutaneous Approach (ICD-10-PCS; principal; 2023-06-13 09:00)
DX: N17.9 Acute kidney failure, unspecified (principal)
CPT/HCPCS: 85025; 80048; 36415; 82947 ×2; 71045; 71046; 76000; 36558; J1644 ×2; A4216; J2704; J2001 ×2; J3010; J7040; C1752

== ENCOUNTER 2024-01-10 19:35 | Emergency (ER) | payer OTHER ==
[2024-01-10 20:39] LABS: Absolute Eosinophils 0.1 K/uL (0-0.5); Absolute Lymphocytes (CBC) 1.6 K/uL (0.7-4.9); Absolute Monocytes 0.3 K/uL (0.1-1.3); Absolute Neutrophil 4.7 K/uL (1.8-8.0); Basophils % 0.3 % (0-1.3); Eosinophils % 2.1 % (0-4.4); Hemoglobin 11.7 g/dL (12.0-15.0); Lymphocytes % 23.9 % (15.3-44.8); MCH 30.2 pg (27.0-35.0); MCHC 32.6 g/dL (32.0-36.0); MCV 92.7 fL (80-100); MPV 8.4 fL (7.6-11.3); Monocytes % 5.1 % (3.3-12.3); Neutrophils % 68.6 % (41.7-73.7); Nucleated RBC Absolute Count 0.1 (0-0); Nucleated Red Blood Cells % 0.7 % (0-0); Platelets 267 thou/uL (152-406); RBC Red Blood Cell Count 3.89 M/uL (3.86-4.86); Red Cell Distribution Width 16.7 % (12.1-15.2)
[2024-01-10 20:41] LABS: PT Prothrombin Time 13.2 SECONDS (9.4-12.5); Protime INR 1.21
--- NOTE | 2024-01-10 20:44 | RAD REPORT ---
EXAM DESCRIPTION: RAD - Chest Single View - 01/10/2024 8:34 pm CLINICAL HISTORY: CHEST PAIN Chest pain. COMPARISON: Chest Single View dated 06/13/2023; Chest Pa And Lat (2 Views) dated 06/07/2023; Chest S charlie View dated 04/11/2023; Chest Pa And Lat (2 Views) dated 11/22/2022 FINDINGS: Portable technique limits examination quality. Mild pulmonary edema. The heart is moderately enlarged. No displaced fractures.Right-sided venous cat heter its tip in the SVC. IMPRESSION: Mild CHF versus volume overload.
[2024-01-10 20:52] LABS: ALT/SGPT 15 U/L (13-56); Albumin 3.2 g/dL (3.4-5.0); Albumin/Globulin Ratio 0.8 (1.1-1.8); Alkaline Phosphatase 58 U/L (45-117); Anion Gap 9.2 mEq/L (5.0-15.0); BUN Blood Urea Nitrogen 37 mg/dL (7-18); Bicarbonate 32 mEq/L (21-32); Bilirubin Total 0.3 mg/dL (0.2-1.0); Globulin 3.9 g/dL (2.3-3.5); Glomerular Filtration Rate 7 ml/min (=/>90); Glucose Level 219 mg/dL (74-106); NT PRO-BNP 11120 pg/mL (<125); Potassium 4.2 mEq/L (3.5-5.1); Protein, Total 7.1 g/dL (6.4-8.2); Sodium Level 138 mEq/L (136-145); Troponin High Sensitivity 21.3 pg/mL (<58.9)
[2024-01-10 20:54] LABS: AST/SGOT < 10 U/L (15-37); Bilirubin Direct < 0.2 mg/dL (0-0.2); Bilirubin Indirect, Calculated 0.1 mg/dL (0.2-0.8)
[2024-01-10 21:38] LABS: Absolute Basophils 0.1 K/uL (0-0.5); Absolute Eosinophils 0.2 K/uL (0-0.5); Absolute Lymphocytes (CBC) 2.6 K/uL (0.7-4.9); Absolute Monocytes 0.5 K/uL (0.1-1.3); Absolute Neutrophil 6.1 K/uL (1.8-8.0); Basophils % 1.3 % (0-1.3); Eosinophils % 2.2 % (0-4.4); Hematocrit 35.3 % (36.0-45.0); Hemoglobin 11.7 g/dL (12.0-15.0); Lymphocytes % 27.1 % (15.3-44.8); MCH 30.8 pg (27.0-35.0); MCV 93.1 fL (80-100); MPV 9.2 fL (7.6-11.3); Monocytes % 4.9 % (3.3-12.3); Neutrophils % 64.5 % (41.7-73.7); Nucleated Red Blood Cells % 0.4 % (0-0); Platelets 188 thou/uL (152-406); RBC Red Blood Cell Count 3.79 M/uL (3.86-4.86); Red Cell Distribution Width 16.5 % (12.1-15.2)
--- NOTE | 2024-01-10 22:44 | ER ---
Nurse's Notes [facility] Name: Mariaa Peguero Age: 53 yrs Sex: Female : 1970 Arrival Date: 01/10/2024 Time: 19:35 Bed 13 Private MD: Jamison Dong C Diagnosis: End-stage renal disease, anemia of renal disease, Presentation: 01/09 19:46 Chief complaint: Patient states: sent by dialysis for hemoglobin of 4.6. Dialysis MWF. lg3 denies symptoms at this time. Coronavirus screen: Client denies travel out of the [place] in the last 14 days. At this time, the client does not indicate any symptoms associated with coronavirus-19. Ebola Screen: No symptoms or risks identified at this time. Initial Sepsis Screen: Does the patient meet any 2 criteria? No. Patient's initial sepsis screen is negative. Does the patient have a suspected source of infection? No. Patient's initial sepsis screen is negative. Risk Assessment: Do you want to hurt yourself or someone else? Patient reports no desire to harm self or others. Onset of symptoms is unknown. 19:46 Method Of Arrival: Ambulatory lg3 19:46 Acuity: SARA 3 lg3 Triage Assessment: 19:50 General: Appears in no apparent distress. comfortable, Behavior is calm, cooperative. lg3 Pain: Denies pain. EENT: No deficits noted. No signs and/or symptoms were reported regarding the EENT system. Neuro: No deficits noted. [place] Agitation-Sedation Scale (RASS): 0 - Alert and Calm Level of Consciousness is awake, alert, obeys commands, Oriented to person, place, time, situation. Cardiovascular: No deficits noted. Denies chest pain, shortness of breath, Capillary refill < 3 seconds Clubbing of nail beds is absent JVD is absent Patient's skin is warm and dry. Respiratory: No deficits noted. Airway is patent Respiratory effort is even, unlabored, Respiratory pattern is regular, symmetrical. GI: No deficits noted. No signs and/or symptoms were reported involving the gastrointestinal system. : No deficits noted. No signs and/or symptoms were reported regarding the genitourinary system. Derm: Skin is intact, is healthy with good turgor, Skin is dry, Skin is normal, Skin temperature is warm. Musculoskeletal: No deficits noted. No signs and/or symptoms reported regarding the musculoskeletal system. Circulation, motion, and sensation intact. Range of motion: intact in all extremities. 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 - Infectious Disease History:: Denies. - Social history:: Smoking status: Patient denies any tobacco usage or history of. Patient/guardian denies using alcohol, street drugs. - Family history:: not pertinent. Screenin:25 [facility] ED Fall Risk Assessment (Adult) History of falling in the last 3 months, mb9 including since admission No falls in past 3 months (0 pts) Confusion or Disorientation No (0 pts) Intoxicated or Sedated No (0 pts) Impaired Gait No (0 pts) Mobility Assist Device Used No (0 pt) Altered Elimination No (0 pt) Score/Fall Risk Level 0 - 2 = Low Risk Oriented to surroundings, Maintained a safe environment, Educated pt \T\ family on fall prevention, incl call for assistance when getting out of bed. Abuse screen: Denies threats or abuse. Nutritional screening: No deficits noted. Tuberculosis screening: No symptoms or risk factors identified. Assessment: 20:24 General: Appears in no apparent distress. Behavior is calm, cooperative. Pain: Denies mb9 pain. Neuro: [place] Agitation-Sedation Scale (RASS): 0 - Alert and Calm Level of Consciousness is awake, alert, obeys commands, Oriented to person, place, time, situation, Appropriate for age. Neuro: Reports dizziness. Cardiovascular: Denies chest pain, Heart tones S1 S2 present Patient's skin is warm and dry. Respiratory: Airway is patent Respiratory effort is even, unlabored, Respiratory pattern is regular, symmetrical, Breath sounds are clear bilaterally. Denies shortness of breath. GI: Abdomen is round non-distended, Bowel sounds present X 4 quads. Abd is soft and non tender X 4 quads. : No signs and/or symptoms were reported regarding the genitourinary system. EENT: No signs and/or symptoms were reported regarding the EENT system. Derm: Skin is pink, warm \T\ dry. Musculoskeletal: Range of motion: intact in all extremities. 23:11 Reassessment: Patient appears in no apparent distress at this time. No changes from lg3 previously documented assessment. Patient and/or family updated on plan of care and expected duration. Pain level reassessed. Patient is alert, oriented x 3, equal unlabored respirations, skin warm/dry/pink. Vital Signs: 19:46 BP 140 / 72; Pulse 85; Resp 17 S; Temp 98.3(O); Pulse Ox 96% on R/A; Weight 90.72 kg; lg3 Height 5 ft. 3 in. (R); Pain 0/10; 23:11 BP 133 / 73; Pulse 80; Resp 17 S; Temp 98.1(O); Pulse Ox 98% on R/A; lg3 19:46 Body Mass Index 35.43 (90.72 kg, 160.02 cm) lg3 19:46 Pain Scale: Adult lg3 [place] Coma Score: 01/10 04:10 Eye Response: spontaneous(4). Motor Response: obeys commands(6). Verbal Response: sp4 oriented(5). Total: 15. ED Course: 01/09 19:38 Patient arrived in ED. mr 19:38 Jamison Dong MD is Private Physician. mr 19:50 Triage completed. lg3 19:50 Arm band placed on right wrist. lg3 20:07 Raymon Alanis MD is Attending Physician. sp4 20:12 Michelle De Oliveira RN is Primary Nurse. mb9 20:24 Initial lab(s) drawn, by me, sent to lab. Inserted saline lock: 20 gauge in right mb9 antecubital area, using aseptic technique. Blood collected. 20:25 Placed in gown. Bed in low position. Call light in reach. Side rails up X 1. Provided mb9 Education on: press call light if needing anything. Client placed on continuous cardiac and pulse oximetry monitoring. NIBP monitoring applied. library monitor on. Door closed. Noise minimized. Warm blanket given. Pillow given. 20:26 No provider procedures requiring assistance completed. mb9 20:26 Basic Metabolic Panel Sent. mb9 20:26 CBC with Diff Sent. mb9 20:26 LFT's Sent. mb9 20:26 NT PRO-BNP Sent. mb9 20:26 PT-INR Sent. mb9 20:26 Troponin HS Sent. mb9 20:26 Type And Screen Sent. mb9 20:36 XRAY Chest (1 view) In Process Unspecified. EDMS 22:42 Jamison Dong MD is Referral Physician. sp4 23:11 IV discontinued, intact, bleeding controlled, No redness/swelling at site. Pressure lg3 dressing applied. Administered Medications: No medications were administered Medication: 20:26 VIS not applicable for this client. mb9 Outcome: 22:43 Discharge ordered by . sp4 23:14 Discharged to home ambulatory, lg3 23:14 Condition: stable 23:14 Discharge instructions given to patient, Instructed on discharge instructions, follow up and referral plans. Demonstrated understanding of instructions, follow-up care, 23:15 Patient left the ED. lg3 Signatures: Dispatcher [employer] EDKY Michelle Glass, Reg Reg Shaila Hardwick, RN RN lg3 Michelle De Oliveira, RN RN mb9 Raymon Alanis MD MD sp4
--- NOTE | 2024-01-10 22:44 | EDPHYS ---
Physician Documentation [facility] Name: Mariaa Peguero Age: 53 yrs Sex: Female : 1970 Arrival Date: 01/10/2024 Time: 19:35 Bed 13 Private MD: Jamison Dong C ED Physician Raymon Alanis HPI: 01/09 20:07 This 53 yrs old Black Female presents to ER via Ambulatory with complaints of Abnormal sp4 Lab Results. 01/10 04:10 Patient presents to be evaluated for anemia she reportedly had hemoglobin 4.6. . sp4 MATE FIRST: 01/09 19:50 LMP N/A - Post-menopause, Not lg3 Historical: - Allergies: 19:50 PENICILLINS; lg3 - PMHx: 19:50 Congestive heart failure; diabetes mellitus; Hypercholesterolemia; Hypertension; ESRD lg3 (Hypertension); - PSHx: 19:50 ; Liver; dialysis port placement (Liver); left arm fistula (Liver); lg3 - Immunization history:: Adult Immunizations up to date, Client reports receiving the 2nd dose of the Covid vaccine, Flu vaccine is not up to date. - Infectious Disease History:: Denies. - Social history:: Smoking status: Patient denies any tobacco usage or history of. Patient/guardian denies using alcohol, street drugs. - Family history:: not pertinent. ROS: 01/10 04:10 Constitutional: Negative for fever, chills, and weight loss, Respiratory: Negative for sp4 shortness of breath, cough, wheezing, and pleuritic chest pain, All other systems are negative, Exam: 04:10 Constitutional: This is a well developed, well nourished patient who is awake, alert, sp4 and in no acute distress. Left newly operated left upper arm hemodialysis AV fistula. There is a right chest wall tunneled hemodialysis catheter. Head/Face: Normocephalic, atraumatic. Eyes: Pupils equal round and reactive to light, extra-ocular motions intact. Lids and lashes normal. Conjunctiva and sclera are not injected. Cornea within normal limits. Periorbital areas with no swelling, redness, or edema. ENT: Nares patent. No nasal discharge, no septal abnormalities noted. Tympanic membranes are normal and external auditory canals are clear. Oropharynx with no redness, swelling, or masses, exudates, or evidence of obstruction, uvula midline. Mucous membranes moist. Neck: Trachea midline, no thyromegaly or masses palpated, and no cervical lymphadenopathy. Supple, full range of motion without nuchal rigidity, or vertebral point tenderness. Chest/axilla: Normal chest wall appearance and motion. Nontender with no deformity. No lesions are appreciated. Cardiovascular: Regular rate and rhythm with a normal S1 and S2. No gallops, murmurs, or rubs. Normal PMI, no JVD. No pulse deficits. Respiratory: Lungs have equal breath sounds bilaterally, clear to auscultation and percussion. No rales, rhonchi or wheezes noted. No increased work of breathing, no retractions or nasal flaring. Abdomen/GI: Soft, with normal bowel sounds. No distension or tympany. No guarding or rebound. No evidence of tenderness throughout. Back: No spinal tenderness. No costovertebral tenderness. Skin: Warm, dry with normal turgor. Normal color with no rashes, no lesions, and no evidence of cellulitis. MS/ Extremity: Pulses equal, no cyanosis. Neurovascular intact. Full, normal range of motion. Neuro: Awake and alert, GCS 15, oriented to person, place, time, and situation. Cranial nerves II-XII grossly intact. Motor strength 5/5 in all extremities. Sensory grossly intact. Psych: Awake, alert, with orientation to person, place and time. Behavior, mood, and affect are within normal limits 04:10 ECG was reviewed by the Attending Physician. EKG time 2025, normal sinus rhythm with prolonged QT, 82 bpm Vital Signs: 01/09 19:46 BP 140 / 72; Pulse 85; Resp 17 S; Temp 98.3(O); Pulse Ox 96% on R/A; Weight 90.72 kg; lg3 Height 5 ft. 3 in. (R); Pain 0/10; 23:11 BP 133 / 73; Pulse 80; Resp 17 S; Temp 98.1(O); Pulse Ox 98% on R/A; lg3 19:46 Body Mass Index 35.43 (90.72 kg, 160.02 cm) lg3 19:46 Pain Scale: Adult lg3 [place] Coma Score: 01/10 04:10 Eye Response: spontaneous(4). Motor Response: obeys commands(6). Verbal Response: sp4 oriented(5). Total: 15. MDM: 01/09 20:14 Patient medically screened. sp4 01/10 04:13 Differential Diagnosis altered mental status, sepsis, flu. Data reviewed: vital signs, sp4 nurses notes, lab test result(s), EKG, radiologic studies. Consideration of Admission/Observation Escalation of care including admission/observation considered. ED course: EXAM DESCRIPTION: RAD - Chest Single View - 01/10/2024 8:34 pm CLINICAL HISTORY: CHEST PAIN Chest pain. COMPARISON: Chest Single View dated 06/13/2023; Chest Pa And Lat (2 Views) dated 06/07/2023; Chest Single View dated 04/11/2023; Chest Pa And Lat (2 Views) dated 11/22/2022 FINDINGS: Portable technique limits examination quality. Mild pulmonary edema. The heart is moderately enlarged. No displaced fractures.Right-sided venous catheter its tip in the SVC. IMPRESSION: Mild CHF versus volume overload. . 04:15 ED course: Hemoglobin was checked twice and both times at 11.7. At this time no sp4 indication for transfusion. Stable for discharge home.. 01/09 20:09 Order name: Basic Metabolic Panel; Complete Time: 21:10 sp4 01/09 20:09 Order name: CBC with Diff; Complete Time: 21:10 sp4 01/09 20:09 Order name: LFT's; Complete Time: 21:10 sp4 01/09 20:09 Order name: NT PRO-BNP; Complete Time: 21:10 sp4 01/09 20:09 Order name: PT-INR; Complete Time: 21:10 sp4 01/09 20:09 Order name: Troponin HS; Complete Time: 21:10 sp4 01/09 21:12 Order name: CBC with Diff; Complete Time: 04:14 mb9 01/09 22:14 Order name: CBC Smear Scan; Complete Time: 04:14 EDMS 01/09 20:09 Order name: XRAY Chest (1 view); Complete Time: 21:10 sp4 01/09 20:09 Order name: EKG; Complete Time: 20:10 sp4 01/09 20:09 Order name: Cardiac monitoring; Complete Time: 20:12 sp4 01/09 20:09 Order name: EKG - Nurse/Tech; Complete Time: 20: sp4 01/09 20:09 Order name: IV Saline Lock; Complete Time: : sp4 01/09 20:09 Order name: Labs collected and sent; Complete Time: 20: sp4 01/09 20:09 Order name: O2 Per Protocol; Complete Time: 20:12 sp4 01/09 20:09 Order name: O2 Sat Monitoring; Complete Time: 20:12 sp4 EC:10 Rate is 82 beats/min. Rhythm is regular, Normal Sinus Rhythm. QRS [place] is Normal. RI sp4 interval is normal. QRS interval is normal. QT interval is prolonged. No Q waves. T waves are Normal. No ST changes noted. Clinical impression: No evidence of ischemia. Interpreted by me. Reviewed by me. Administered Medications: No medications were administered Disposition Summary: 01/10/24 22:43 Discharge Ordered Notes: Location: Home sp4 Problem: new sp4 Symptoms: have improved sp4 Condition: Stable sp4 Diagnosis - End-stage renal disease, anemia of renal disease, sp4 Followup: sp4 - With: Jamison Dong MD - When: 7 - 10 days - Reason: Recheck today's complaints Discharge Instructions: - Discharge Summary Sheet sp4 - Medical Screening Exam sp4 Forms: - Patient Portal Instructions sp4 Signatures: Dispatcher [employer] Shaila Canales, RN RN lg3 Raymon Alanis MD MD sp4 Corrections: (The following items were deleted from the chart) 01/09 20:10 20:10 TYPE AND SCREEN+BB.LAB.BRZ ordered. EDMS EDMS 20:10 20:10 BASIC METABOLIC PANEL+C.LAB.BRZ ordered. EDMS EDMS 20:10 20:10 CBC+H.LAB.BRZ ordered. EDMS EDMS 20:10 20:10 HEPATIC FUNCTION+C.LAB.BRZ ordered. EDMS EDMS 20:10 20:10 PROBNP+C.LAB.BRZ ordered. EDMS EDMS 20:10 20:10 PROTIME (+INR)+COAG.LAB.BRZ ordered. EDMS EDMS 20:10 20:10 Troponin High Sensitivity+C.LAB.BRZ ordered. EDMS EDMS
[2024-01-10 23:07] LABS: Platelet Estimate ADEQ
[2024-01-10 23:23] LABS: White Blood Cell Scan OK (OK)
[2024-01-10 23:24] LABS: Blood Morphology Comment NOT SEEN (NOT SEEN)
[2024-01-11 00:50] VITALS: BP 133/73; TEMP 98.1; O2SAT 98
--- NOTE | 2024-01-11 12:32 | EKG ---
Test Date: 2024-01-10 Test Time: 20:26:40 Capacity Planning Manager: [id number] MEASUREMENT RESULTS: Intervals: Rate: 82 [place]: 116 QRSD: 72 QT: 412 QTc: 481 [place]: P: 49 [place]: 116 QRS: -18 T: 53 INTERPRETIVE STATEMENTS: Normal sinus rhythm Prolonged QT Abnormal ECG Compared to ECG 04/11/2023 17:25:01 Prolonged QT interval now present Electronically Signed On 01-11-24 12:31:47 CDT by Jayce Nieto
== END 2024-01-10 23:15 | disposition home or self-care (01) ==
LOC: ER 19:35
DX: E11.22 Type 2 diabetes mellitus with diabetic chronic kidney disease (principal); I13.2 Hypertensive heart and chronic kidney disease with heart failure and with stage 5 chronic kidney disease, or end stage renal disease; I50.9 Heart failure, unspecified; D63.1 Anemia in chronic kidney disease; N18.6 End stage renal disease; Z99.2 Dependence on renal dialysis
CPT/HCPCS: 36415; 71045; 80048; 80076; 83880; 84484; 85025; 85610; 86850; 86900; 86901; 93005; 99284

== ENCOUNTER 2024-10-03 06:30 | Emergency (ER) | payer OTHER ==
[2024-10-03 07:10] LABS: Absolute Eosinophils 0.3 K/uL (0-0.5); Absolute Monocytes 0.4 K/uL (0.1-1.3); Absolute Neutrophil 5.1 K/uL (1.8-8.0); Basophils % 0.5 % (0-1.3); Eosinophils % 3.5 % (0-4.4); Hematocrit 30.9 % (36.0-45.0); Hemoglobin 10.2 g/dL (12.0-15.0); Lymphocytes % 25.3 % (15.3-44.8); MCH 30.2 pg (27.0-35.0); MCHC 33.1 g/dL (32.0-36.0); MCV 91.3 fL (80-100); MPV 8.1 fL (7.6-11.3); Monocytes % 5.3 % (3.3-12.3); Neutrophils % 65.4 % (41.7-73.7); Nucleated Red Blood Cells % 0.1 % (0-0); Platelets 259 thou/uL (152-406); RBC Red Blood Cell Count 3.38 M/uL (3.86-4.86); Red Cell Distribution Width 18.7 % (12.1-15.2)
[2024-10-03 07:17] LABS: PT Prothrombin Time 12.4 SECONDS (10-13.0); PTT, Activated Partial Thromb 33.1 SECONDS (27.2-37.4); Protime INR 1.09
[2024-10-03 07:36] LABS: ALT/SGPT 15 U/L (13-56); Albumin 3.4 g/dL (3.4-5.0); Albumin/Globulin Ratio 0.9 (1.1-1.8); Alkaline Phosphatase 59 U/L (45-117); Anion Gap 10.5 mEq/L (5.0-15.0); BUN Blood Urea Nitrogen 35 mg/dL (7-18); Bicarbonate 27 mEq/L (21-32); Bilirubin Direct 0.2 mg/dL (0-0.2); Bilirubin Indirect, Calculated 0.4 mg/dL (0.2-0.8); Bilirubin Total 0.6 mg/dL (0.2-1.0); Creatine Phosphokinase 122 U/L (26-192); Globulin 3.6 g/dL (2.3-3.5); Glomerular Filtration Rate 6 ml/min (=/>90); Glucose Level 216 mg/dL (74-106); Lipase 62 U/L (13-75); Magnesium 2.1 mg/dL (1.6-2.4); NT PRO-BNP 10374 pg/mL (<125); Potassium 4.5 mEq/L (3.5-5.1); Sodium Level 138 mEq/L (136-145); Troponin High Sensitivity 32.3 pg/mL (<58.9)
[2024-10-03 07:37] LABS: AST/SGOT < 10 U/L (15-37)
--- NOTE | 2024-10-03 07:40 | RAD REPORT ---
EXAMINATION: ONE VIEW CHEST XR CLINICAL INDICATION: DYSPNEA TECHNIQUE: Frontal chest projection is submitted. Examination is limited by patient positioning and t echnique. COMPARISON: 01/10/2024 FINDINGS: Moderate to significant bilateral pulmonary opacities likely pulmonary edema. Heart is moderately enl arged. No displaced fractures identified. IMPRESSION: Moderate CHF versus volume overload pattern.
--- NOTE | 2024-10-03 09:27 | EDPHYS ---
Physician Documentation [facility] Name: Mariaa Peguero Age: 54 yrs Sex: Female : 1970 Arrival Date: 10/03/2024 Time: 06:30 Bed 6 Private MD: ED Physician Hector Andre HPI: 10/03 07:14 This 54 yrs old Black Female presents to ER via Ambulatory with complaints of Shortness rt Of Breath. 07:14 Patient with history of CHF, ESRD presents to the ED with dyspnea started about 2 hours rt prior to arrival, is worse with lying down flat and exertion. Denies chest pain, acute complaints, symptoms are moderate in severity, no other aggravating or alleviating factors.. 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 - Infectious Disease History:: Denies. - Social history:: Smoking status: Patient denies any tobacco usage or history of. Patient/guardian denies using alcohol, street drugs. - Family history:: not pertinent. ROS: 07:14 Constitutional: Negative for fever, chills, and weight loss, Cardiovascular: Negative rt for chest pain, palpitations, and edema, Abdomen/GI: Negative for abdominal pain, nausea, vomiting, diarrhea, and constipation, MS/Extremity: Negative for injury and deformity, Skin: Negative for injury, rash, and discoloration, Neuro: Negative for headache, weakness, numbness, tingling, and seizure, 07:14 Respiratory: Positive for cough, shortness of breath, Exam: 07:14 Constitutional: This is a well developed, well nourished patient who is awake, alert, rt and in no acute distress. Head/Face: Normocephalic, atraumatic. Chest/axilla: Normal chest wall appearance and motion. Nontender with no deformity. No lesions are appreciated. Cardiovascular: Regular rate and rhythm with a normal S1 and S2. No gallops, murmurs, or rubs. Normal PMI, no JVD. No pulse deficits. Abdomen/GI: Soft, non-tender, with normal bowel sounds. No distension or tympany. No guarding or rebound. No evidence of tenderness throughout. Skin: Warm, dry with normal turgor. Normal color with no rashes, no lesions, and no evidence of cellulitis. MS/ Extremity: Pulses equal, no cyanosis. Neurovascular intact. Full, normal range of motion. Neuro: Awake and alert, GCS 15, oriented to person, place, time, and situation. Cranial nerves II-XII grossly intact. Motor strength 5/5 in all extremities. Sensory grossly intact. Cerebellar exam normal. Normal gait. 07:14 Respiratory: Bibasilar crackles, no respiratory distress, Vital Signs: 06:44 BP 207 / 101; Pulse 93; Resp 18; Temp 98.8; Pulse Ox 96% on R/A; Weight 86.18 kg; bm8 Height 5 ft. 3 in. ; Pain 0/10; 08:05 BP 195 / 94; Pulse 88; Resp 18; Pulse Ox 97% on R/A; ph 09:34 BP 175 / 89; Pulse 83; Resp 18; Pulse Ox 97% ; bp 06:44 Body Mass Index 33.66 (86.18 kg, 160.02 cm) bm8 06:44 Pain Scale: Adult bm8 MDM: 06:59 Medical Screening Exam initiated rt 13:07 Differential diagnosis: Volume overload, pneumonia. Data reviewed: vital signs, nurses rt notes, lab test result(s), EKG, radiologic studies. Consideration of Admission/Observation Escalation of care including admission/observation considered. 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 No indications for admission at this time, stable for outpatient care.. Independent interpretation of the following test(s) in the Emergency Department X-Ray: My interpretation is Pulmonary edema seen on interpretation of x-ray images. Care significantly affected by the following chronic conditions: Chronic Kidney Disease. Counseling: I had a detailed discussion with the patient and/or guardian regarding the historical points, exam findings, and any diagnostic results supporting the discharge/admit diagnosis, lab results, radiology results, the need for outpatient follow up, to return to the emergency department if symptoms worsen or persist or if there are any questions or concerns that arise at home. 10/03 06:45 Order name: BMP; Complete Time: 07:38 sp4 10/03 06:45 Order name: Blood Culture Adult (2) 10/03 06:45 Order name: CBC with Diff; Complete Time: 07:38 sp4 10/03 06:45 Order name: CPK; Complete Time: 07:38 sp4 10/03 06:45 Order name: Hepatic Function; Complete Time: 07:38 sp4 10/03 06:45 Order name: Lipase; Complete Time: 07:38 sp10/03 06:45 Order name: Magnesium; Complete Time: 07:38 sp10/03 06:45 Order name: NT PRO-BNP; Complete Time: 07:38 sp10/03 06:45 Order name: PT-INR; Complete Time: 07:38 sp4 10/03 06:45 Order name: Ptt, Activated; Complete Time: 07:38 sp4 10/03 06:45 Order name: Troponin HS; Complete Time: 07:38 sp4 10/03 06:48 Order name: CRP; Complete Time: 07:38 4 10/03 06:45 Order name: XRAY CXR (1 view); Complete Time: 07:51 sp4 10/03 06:45 Order name: EKG; Complete Time: 06:46 sp4 10/03 06:45 Order name: Cardiac monitoring; Complete Time: 06:56 sp4 10/03 06:45 Order name: EKG - Nurse/Tech; Complete Time: 06:56 sp4 10/03 06:45 Order name: IV Saline Lock; Complete Time: 06:56 sp4 10/03 06:45 Order name: Labs collected and sent; Complete Time: 06:56 sp4 10/03 06:45 Order name: O2 Per Protocol; Complete Time: 06:56 sp4 10/03 06:45 Order name: O2 Sat Monitoring; Complete Time: 06:56 sp4 Administered Medications: No medications were administered Disposition Summary: 10/03/24 09:26 Discharge Ordered Notes: Location: Home rt Problem: an acute exacerbation rt Symptoms: have improved rt Condition: Stable rt Diagnosis - Volume overload rt Followup: rt - With: Private Physician - When: Today - Reason: Discharge Instructions: - Discharge Summary Sheet rt - Dialysis rt Forms: - Medication Reconciliation Form rt - Antibiotic Education rt - Prescription Opioid Use rt - Patient Portal Instructions rt - Leadership Thank You Letter rt Signatures: Dispatcher [employer] EDMS Hector Andre MD MD rt Raymon Alanis MD MD sp4 Torrey Padilla, RN RN bm8 Corrections: (The following items were deleted from the chart) 06:46 06:46 BASIC METABOLIC PANEL+C.LAB.BRZ ordered. EDMS EDMS 06:46 06:46 BLOOD CULTURE*+BA.LAB.BRZ ordered. EDMS EDMS 06:46 06:46 CBC+H.LAB.BRZ ordered. EDMS EDMS 06:46 06:46 CREATINE PHOSPHOKINASE+C.LAB.BRZ ordered. EDMS EDMS 06:46 06:46 HEPATIC FUNCTION+C.LAB.BRZ ordered. EDMS EDMS 06:46 06:46 LIPASE+C.LAB.BRZ ordered. EDMS EDMS 06:46 06:46 MAGNESIUM+C.LAB.BRZ ordered. EDMS EDMS 06:46 06:46 PROBNP+C.LAB.BRZ ordered. EDMS EDMS 06:46 06:46 PROTIME (+INR)+COAG.LAB.BRZ ordered. EDMS EDMS 06:46 06:46 PTT, ACTIVATED+COAG.LAB.BRZ ordered. EDMS EDMS 06:46 06:46 Troponin High Sensitivity+C.LAB.BRZ ordered. EDMS EDMS 06:46 06:46 Chest Single View+RAD.RAD.BRZ ordered. EDMS EDMS
--- NOTE | 2024-10-03 09:27 | ER ---
Nurse's Notes [facility] Name: Mariaa Peguero Age: 54 yrs Sex: Female : 1970 Arrival Date: 10/03/2024 Time: 06:30 Bed 6 Private MD: Diagnosis: Volume overload Presentation: 10/03 06:44 Chief complaint: Patient states: I have been really short of breath for the last two bm8 hours and having sit up to take deep breaths. Coronavirus screen: Vaccine status: Patient reports receiving the 2nd dose of the covid vaccine. At this time, the client does not indicate any symptoms associated with coronavirus-19. Ebola Screen: Patient negative for fever greater than or equal to 101.5 degrees Fahrenheit, and additional compatible Ebola Virus Disease symptoms Patient denies exposure to infectious person. Patient denies travel to an Ebola-affected area in the 21 days before illness onset. No symptoms or risks identified at this time. Initial Sepsis Screen: Does the patient meet any 2 criteria? No. Patient's initial sepsis screen is negative. Does the patient have a suspected source of infection? No. Patient's initial sepsis screen is negative. Risk Assessment: Do you want to hurt yourself or someone else? Patient reports no desire to harm self or others. Onset of symptoms was October 03, 2024 at 04:00. 06:44 Method Of Arrival: Ambulatory bm8 06:44 Acuity: SARA 2 bm8 Triage Assessment: 06:47 General: Appears in no apparent distress. comfortable, Behavior is calm, cooperative, bm8 appropriate for age. Pain: Denies pain. EENT: No deficits noted. No signs and/or symptoms were reported regarding the EENT system. Neuro: No deficits noted. Level of Consciousness is awake, alert, obeys commands, Oriented to person, place, time, situation, Appropriate for age. Cardiovascular: Reports shortness of breath, Heart tones S1 S2 present Capillary refill < 3 seconds in bilateral fingers Patient's skin is warm and dry. Respiratory: Reports shortness of breath at rest Airway is patent Trachea midline Respiratory effort is even, unlabored, Respiratory pattern is regular, symmetrical, Breath sounds with crackles in left lower lobe, right lower lobe, left posterior lower lobe and right posterior lower lobe Onset: The symptoms/episode began/occurred gradually, the patient has mild shortness of breath. GI: No signs and/or symptoms were reported involving the gastrointestinal system. : No signs and/or symptoms were reported regarding the genitourinary system. Derm: No signs and/or symptoms reported regarding the dermatologic system. Musculoskeletal: No signs and/or symptoms reported regarding the musculoskeletal system. [employer]: 06:47 LMP N/A - Post-menopause, Not bm8 Historical: - Allergies: 06:47 PENICILLINS; bm8 - PMHx: 06:47 Congestive heart failure; diabetes mellitus; ESRD (Hypertension); Hypercholesterolemia; bm8 Hypertension; - PSHx: 06:47 ; dialysis port placement (Live); Left arm fistula (Live); Liver; bm8 - Immunization history:: Adult Immunizations up to date. - Infectious Disease History:: Denies. - Social history:: Smoking status: Patient denies any tobacco usage or history of. Patient/guardian denies using alcohol, street drugs. - Family history:: not pertinent. Screenin:50 [facility] ED Fall Risk Assessment (Adult) History of falling in the last 3 months, bm8 including since admission No falls in past 3 months (0 pts) Confusion or Disorientation No (0 pts) Intoxicated or Sedated No (0 pts) Impaired Gait No (0 pts) Mobility Assist Device Used No (0 pt) Altered Elimination No (0 pt) Score/Fall Risk Level 0 - 2 = Low Risk Oriented to surroundings, Maintained a safe environment, Educated pt \T\ family on fall prevention, incl call for assistance when getting out of bed, Assessed \T\ reinforced patient's understanding of fall precautions, Hourly rounding (assess needs \T\ fall precautionary measures) done, Used ambulatory aids as needed (educated on \T\ assisted with), Used gait belt as appropriate. Abuse screen: Denies threats or abuse. Nutritional screening: No deficits noted. Tuberculosis screening: No symptoms or risk factors identified. Assessment: 08:06 Cardiovascular: Rhythm is sinus rhythm. ph 08:06 General: Appears in no apparent distress. Behavior is calm, cooperative. Pain: Denies ph pain. Neuro: Level of Consciousness is awake, alert, obeys commands, Oriented to person, place, time, situation. Cardiovascular: Reports shortness of breath, Rhythm is. Respiratory: Airway is patent Respiratory effort is even, unlabored, Respiratory pattern is regular, symmetrical, Breath sounds with crackles in left posterior lower lobe and right posterior lower lobe. GI: No signs and/or symptoms were reported involving the gastrointestinal system. Derm: Skin is pink, warm \T\ dry. 09:31 Reassessment: Patient appears in no apparent distress at this time. Patient is alert, bp oriented x 3, equal unlabored respirations, skin warm/dry/pink. Vital Signs: 06:44 BP 207 / 101; Pulse 93; Resp 18; Temp 98.8; Pulse Ox 96% on R/A; Weight 86.18 kg; bm8 Height 5 ft. 3 in. ; Pain 0/10; 08:05 BP 195 / 94; Pulse 88; Resp 18; Pulse Ox 97% on R/A; ph 09:34 BP 175 / 89; Pulse 83; Resp 18; Pulse Ox 97% ; bp 06:44 Body Mass Index 33.66 (86.18 kg, 160.02 cm) bm8 06:44 Pain Scale: Adult [facility] ED Course: 06:33 Patient arrived in ED. j6 06:44 Torrey Padilla, RN is Primary Nurse. bm8 06:47 Triage completed. bm8 06:47 Arm band placed on right wrist. bm8 06:50 Patient has correct armband on for positive identification. Placed in gown. Bed in low bm8 position. Call light in reach. Side rails up X 1. Adult w/ patient. Client placed on continuous cardiac and pulse oximetry monitoring. NIBP monitoring applied. panel monitor on. Pulse ox on. NIBP on. Door closed. Noise minimized. Warm blanket given. Pillow given. Verbal reassurance given. Head of bed elevated. 06:50 No provider procedures requiring assistance completed. Initial lab(s) drawn, by ED bm8 staff, sent to lab. EKG done, by ED staff, reviewed by Raymon Alanis MD. Inserted saline lock: 20 gauge in right antecubital area, using aseptic technique. Blood collected. Flushed with 10 mL NS. Patient maintains SpO2 saturation greater than 95% on room air. 06:58 Hector Andre MD is Attending Physician. rt 07:16 XRAY CXR (1 view) In Process Unspecified. EDMS 09:35 Provided Education on: NA. bp 09:35 IV discontinued, intact, bleeding controlled, No redness/swelling at site. Pressure bp dressing applied. Administered Medications: No medications were administered Medication: 06:50 VIS not applicable for this client. bm8 Outcome: :26 Discharge ordered by . rt 09:35 Discharged to home ambulatory, with family, bp 09:35 Condition: stable 09:35 Discharge instructions given to patient, Instructed on discharge instructions, follow up and referral plans. Demonstrated understanding of instructions, follow-up care, :42 Patient left the ED. bp Signatures: Dispatcher [employer] EDYenni Pastrana, RN RN ph Kishor Caicedo, RN RN bp Libby [id number] Hector Andre MD MD rt Torrey Padilla, RN RN bm8
[2024-10-03 09:52] VITALS: TEMP 98.8
[2024-10-03 09:53] VITALS: O2SAT 97
[2024-10-03 09:55] VITALS: BP 175/89
== END 2024-10-03 09:42 | disposition home or self-care (01) ==
LOC: ER 06:30
DX: E87.70 Fluid overload, unspecified (principal); E11.22 Type 2 diabetes mellitus with diabetic chronic kidney disease; I13.2 Hypertensive heart and chronic kidney disease with heart failure and with stage 5 chronic kidney disease, or end stage renal disease; I50.9 Heart failure, unspecified; N18.6 End stage renal disease; Z99.2 Dependence on renal dialysis
CPT/HCPCS: 36415; 71045; 80048; 80076; 82550; 83690; 83735; 83880; 84484; 85025; 85610; 85730; 86140; 87040; 93005; 99284